=== PATIENT | female | born 1955 | race Caucasian/White ===

== ENCOUNTER → 2020-04-09 11:16 | Outpatient (BNVA) | payer MEDICARE, SELFPAY | PROVIDERS: PCP Internal Medicine; Referring Provider Internal Medicine; Visit Provider Hospitalist | DX: J44.9 Chronic obstructive pulmonary disease, unspecified (principal); R91.8 Other nonspecific abnormal finding of lung field; J31.0 Chronic rhinitis; K76.89 Other specified diseases of liver; Z99.81 Dependence on supplemental oxygen | CPT/HCPCS: 99212 ==

== ENCOUNTER 2020-04-16 12:55 | Outpatient (REF) | payer MEDICARE, SELFPAY ==
--- NOTE | 2020-04-16 13:20 | PFT_ITS ---
Forced vital capacity, FEV1, [id number] and MVV are all markedly decreased. Post bronchodilator therapy, there is no significant improvement. Total lung capacity normal. Residual volume moderately increased. Diffusion capacity is markedly decreased. CONCLUSION: Very severe obstructive airway disorder. No significant response to bronchodilator therapy. There is evidence of air trapping. Clinical correlation recommended. MD JOBY Daniels/MODL / [id number]
== END 2020-04-16 12:56 | disposition home or self-care (01) ==
LOC: HO.RESP 12:55
PROVIDERS: PCP Internal Medicine; Visit Provider Hospitalist
DX: R91.1 Solitary pulmonary nodule (principal)
CPT/HCPCS: 94060; 94727; 94729

== ENCOUNTER 2020-05-02 10:27 | Outpatient (REF) | payer MEDICARE, SELFPAY ==
--- NOTE | 2020-05-02 10:32 | US_ITS ---
EXAMINATION: US ABDOMEN LIMITED CLINICAL INFORMATION: Other specified diseases of liver. COMPARISON: None TECHNIQUE: Real-time imaging of the right upper quadrant abdominal viscera. Technically limited study secondary to bowel gas. FINDINGS: PANCREAS: Head and body appear unremarkable. The tail is obscured by overlying bowel gas. LIVER: The liver is normal in size. There is increased echogenicity consistent with fatty infiltration. No focal hepatic lesion. There is no intrahepatic biliary duct dilatation seen. GALLBLADDER: Cholelithiasis is present without evidence of acute cholecystitis. The gallbladder is physiologically distended. Multiple mobile gallstones are present. No evidence of gallbladder wall thickening or pericholecystic fluid. COMMON BILE DUCT: Normal in caliber measuring 0.3 cm in diameter. RIGHT KIDNEY: Normal. No hydronephrosis. No renal calculi or focal parenchymal lesions. The kidney measures 9.4 cm in maximum dimension. FREE FLUID: None. US/US abdomen limited IMPRESSION: Cholelithiasis without evidence of acute cholecystitis. Fatty infiltration of the liver.
== END 2020-05-02 10:28 | disposition home or self-care (01) ==
LOC: HO.US 10:27
PROVIDERS: Visit Provider Hospitalist
DX: K76.89 Other specified diseases of liver (principal)
CPT/HCPCS: 76705

== ENCOUNTER → 2020-10-10 09:58 | Outpatient (BNVA) | payer MEDICARE, SELFPAY | PROVIDERS: PCP Internal Medicine; Visit Provider Hospitalist | DX: J31.0 Chronic rhinitis (principal); R91.8 Other nonspecific abnormal finding of lung field; J43.2 Centrilobular emphysema | CPT/HCPCS: 99212 ==

== ENCOUNTER → 2021-01-21 14:04 | Outpatient (BNVA) | payer MEDICARE, SELFPAY | PROVIDERS: PCP Internal Medicine; Visit Provider Hospitalist | DX: J31.0 Chronic rhinitis (principal); J43.2 Centrilobular emphysema; R91.8 Other nonspecific abnormal finding of lung field; Z99.81 Dependence on supplemental oxygen | CPT/HCPCS: 96372; 99212; J2930 ==

== ENCOUNTER 2021-02-05 10:40 | Outpatient (REF) | payer MEDICARE, SELFPAY ==
[2021-02-05 11:34] LABS: ABG Refer to POC result; ABG Base Excess 2.9 mmol/L; ABG HCO3 25 mmol/L (22-26); ABG pCO2 TC 28 mmHg (32-45); ABG pH TC 7.55 (7.35-7.45)
[2021-02-05 11:35] LABS: ABG pO2 TC 46 (83-108)
[2021-02-05 12:02] LABS: MANUAL DIFF FLAG NO
[2021-02-05 12:06] LABS: Basophils Percent Auto 0.3 % (0-2); Eosinophils Absolute Auto 0.2 X10*3/uL (0.0-0.4); Eosinophils Percent Auto 2.3 % (0-4); Hematocrit 38.1 % (37-47); Hemoglobin 12.3 g/dl (12.0-16.0); Imm Gran Abs Auto 0.18 X10*3/uL (0.00-0.03); Lymphocytes Absolute Auto 0.9 X10*3/uL (1.2-4.9); Lymphocytes Percent Auto 10.2 % (20-40); Mean Corpuscular HGB Conc 32.3 g/dl (31.0-35.0); Mean Corpuscular Hemoglobin 31.4 pg (27.0-33.0); Mean Corpuscular Volume 97.2 fL (80-98); Mean Platelet Volume 11.3 fL (9.4-12.3); Monocytes Absolute Auto 0.8 X10*3/uL (0.1-1.2); Monocytes Percent Auto 9.1 % (2-11); Neutrophils Percent Auto 76.1 % (45-73); Platelet Count 198 X10*3/uL (160-400); Red Blood Count 3.92 X10*6/uL (4.20-5.50); Red Cell Distribution Width 13.2 % (11.0-16.0); White Blood Count 9.1 X10*3/uL (4.8-10.8)
[2021-02-05 12:55] LABS: Anion Gap 14 (12-20); Blood Urea Nitrogen 18 mg/dL (9-16); Calcium 9.2 mg/dL (8.4-10.2); Carbon Dioxide 27 mmol/L (22-29); Chloride 96 mmol/L (96-108); Estimated Glomerular Filt Rate 47; Glucose Random 107 mg/dL (60-115); Potassium 4.6 mmol/L (3.3-5.1); Sodium 132 mmol/L (135-145)
[2021-02-05 13:14] LABS: Erythrocyte Sedimentation Rate 61 MM/HR (0-20)
[2021-02-06 06:56] LABS: Theophylline < 0.8
== END 2021-02-05 10:41 | disposition home or self-care (01) ==
LOC: HO.LAB 10:40
PROVIDERS: PCP Internal Medicine; Visit Provider Hospitalist
DX: J44.9 Chronic obstructive pulmonary disease, unspecified (principal)
CPT/HCPCS: 36415; 80048; 80198; 82803; 85025; 85652

== ENCOUNTER 2021-02-06 09:41 | Outpatient (REF) | payer MEDICARE, SELFPAY ==
--- NOTE | ~2021-02-06 | CT_ITS ---
EXAMINATION: CT ANGIOGRAM OF THE CHEST WITH AND WITHOUT CONTRAST (CT PULMONARY ANGIOGRAM FOR PE) CLINICAL INFORMATION: Reason for Exam J96.20 - Acute and chronic respiratory failure, unspecifi... COMPARISON: None TECHNIQUE: Prior to contrast administration, noncontrast localization images were obtained. Subsequently, multidetector volumetric imaging was performed from the thoracic inlet to below the diaphragms following the administration of 65 mL Omnipaque 350 intravenous contrast. No contrast reaction reported Sagittal, coronal, and MIP oblique sagittal reformatted images were obtained on the CT workstation, uploaded to PACS, and reviewed. This CT examination was performed using dose optimization techniques as appropriate, variously including the following: *Automated exposure control *Adjustment of mA and/or kV according to patient size (this includes techniques or standardized protocols for targeted exams where dose is matched to indication/reason for exam; i.e. extremities or head) *Use of iterative reconstruction technique Total exam dose-length product 100 mGy-cm FINDINGS: QUALITY OF STUDY/CONTRAST BOLUS: Satisfactory. PULMONARY ARTERIES: No central or segmental pulmonary emboli. THORACIC AORTA: No aneurysm or dissection. LUNG: There is evidence of emphysema. This is greatest in the lower lobes. The lungs are clear. No evidence PLEURA: No pleural effusion or pneumothorax. MEDIASTINUM: Normal heart size. No pericardial effusion. No hilar or mediastinal lymphadenopathy. No evidence of septal bowing or right heart strain. CHEST WALL/AXILLA: No axillary or internal mammary lymphadenopathy. OSSEOUS STRUCTURES: No acute or suspicious osseous abnormality. UPPER ABDOMEN: There is a 1.2 x 1.5 cm left adrenal nodule. Hounsfield units measure 25 following contrast which is indeterminate. The gallbladder is not completely imaged but may be enlarged measuring 4 x 4.6 cm in AP and transverse dimension. There is a curvilinear calcification in the neck of the gallbladder questionable for a gallstone versus gallbladder wall calcification. No reflux of contrast into the hepatic veins to suggest elevated right heart pressures. CT/CT angio chest PE protocol IMPRESSION: No evidence of pulmonary embolism. Emphysema with lower lobe predominance. 1.2 x 1.5 cm indeterminate left adrenal nodule. Prominent gallbladder and curvilinear calcification in the neck of the gallbladder questionable for a gallstone versus gallbladder wall calcification. VTE: negative
[2021-02-06 12:06] LABS: B Type Natriuretic Peptide < 10 pg/mL (<100); Troponin-I High Sensitivity 4.5 ng/L (<3.5-17.0)
[2021-02-06] MEDS: iohexoL 350 MG/ML 100 ML INFUS..BTL IV (15:05)
== END 2021-02-06 09:42 | disposition home or self-care (01) ==
LOC: HO.CT 09:41
PROVIDERS: PCP Internal Medicine; Visit Provider Hospitalist
DX: J43.2 Centrilobular emphysema (principal); J96.20 Acute and chronic respiratory failure, unspecified whether with hypoxia or hypercapnia; R91.8 Other nonspecific abnormal finding of lung field; J31.0 Chronic rhinitis; Z79.899 Other long term (current) drug therapy; Z99.81 Dependence on supplemental oxygen
CPT/HCPCS: 36415; 71275; 83880; 84484; 96372; 99212; J2930; Q9967

== ENCOUNTER → 2021-02-25 11:14 | Outpatient (BNVA) | payer MEDICARE, SELFPAY | PROVIDERS: PCP Internal Medicine; Visit Provider Hospitalist | DX: J96.20 Acute and chronic respiratory failure, unspecified whether with hypoxia or hypercapnia (principal); J31.0 Chronic rhinitis; J43.2 Centrilobular emphysema; R91.8 Other nonspecific abnormal finding of lung field | CPT/HCPCS: 99212 ==

== ENCOUNTER → 2021-03-18 14:02 | Outpatient (BNVA) | payer MEDICARE, SELFPAY | PROVIDERS: PCP Internal Medicine; Visit Provider Hospitalist | DX: J96.20 Acute and chronic respiratory failure, unspecified whether with hypoxia or hypercapnia (principal); J31.0 Chronic rhinitis; J43.2 Centrilobular emphysema; R91.8 Other nonspecific abnormal finding of lung field | CPT/HCPCS: 99212 ==

== ENCOUNTER 2021-03-21 15:49 | Outpatient (REF) | payer MEDICARE, SELFPAY ==
--- NOTE | 2021-03-21 17:44 | PFT_ITS ---
INDICATION: COPD. SPIROMETRY: The FEV1 to FVC 45% with an FEV1 of 0.5 L, which is 21% predicted and an FVC of 1.1 L, which is 35% predicted. Post bronchodilators, there was a significant improvement of the FEV1 by 27%. The maximum voluntary ventilation only 22% predicted. LUNG VOLUMES: Total lung capacity 78% predicted with a residual volume of 132% predicted. DIFFUSION CAPACITY: DLCO 16% predicted. COMPARISONS: PFTs from 04/16/2020. INTERPRETATION: There is an obstructive ventilatory defect consistent with very severe COPD. There was a significant response to bronchodilators noted. Severe decrease in maximum voluntary ventilation secondary to deconditioning and also worsening dynamic inspiratory capacity. Lung volumes do demonstrate a mild restrictive ventilatory defect suggesting the possibility of underlying parenchymal lung disease. In addition to that, does have significant air trapping due to the COPD. There is a very severe diffusion impairment secondary to the significant degree of emphysema in addition to the possibility of underlying parenchymal lung disease and/or pulmonary vascular disease. When compared to 2019, there appears to be a significant decrease in the FVC, trend increase in the FEV1, significant decrease in the total lung capacity, and trend decrease in the diffusion capacity. Clinical correlation is warranted. MD RINKU Lim/MARY / [id number]
== END 2021-03-21 15:50 | disposition home or self-care (01) ==
LOC: HO.RESP 15:49
PROVIDERS: PCP Internal Medicine; Visit Provider Hospitalist
DX: J96.10 Chronic respiratory failure, unspecified whether with hypoxia or hypercapnia (principal); J43.2 Centrilobular emphysema
CPT/HCPCS: 94060; 94727; 94729

== ENCOUNTER → 2022-03-27 12:55 | Outpatient (BNVA) | payer MEDICARE, SELFPAY | PROVIDERS: PCP Internal Medicine; Visit Provider Hospitalist | DX: J43.2 Centrilobular emphysema (principal); J96.11 Chronic respiratory failure with hypoxia; J96.12 Chronic respiratory failure with hypercapnia; J31.0 Chronic rhinitis; R91.8 Other nonspecific abnormal finding of lung field | CPT/HCPCS: 99212 ==

== ENCOUNTER → 2022-05-16 09:58 | Outpatient (BNVA) | payer MEDICARE, SELFPAY | PROVIDERS: PCP Internal Medicine; Visit Provider Hospitalist | DX: J10.1 Influenza due to other identified influenza virus with other respiratory manifestations (principal); J44.1 Chronic obstructive pulmonary disease with (acute) exacerbation; J96.11 Chronic respiratory failure with hypoxia; J96.12 Chronic respiratory failure with hypercapnia; J31.0 Chronic rhinitis; R91.8 Other nonspecific abnormal finding of lung field | CPT/HCPCS: Q3014 ==

== ENCOUNTER → 2022-06-09 15:43 | Outpatient (BNVA) | payer MEDICARE, SELFPAY | PROVIDERS: PCP Internal Medicine; Visit Provider Hospitalist | DX: J96.11 Chronic respiratory failure with hypoxia (principal); J96.12 Chronic respiratory failure with hypercapnia; R53.83 Other fatigue; R91.8 Other nonspecific abnormal finding of lung field; J44.9 Chronic obstructive pulmonary disease, unspecified; J31.0 Chronic rhinitis; Z99.81 Dependence on supplemental oxygen; Z79.899 Other long term (current) drug therapy | CPT/HCPCS: Q3014 ==

== ENCOUNTER 2022-07-03 12:16 | Outpatient (REF) | payer MEDICARE, SELFPAY ==
[2022-07-03 12:28] LABS: MANUAL DIFF FLAG NO
[2022-07-03 12:35] VITALS: O2SAT 98
[2022-07-03 12:49] LABS: ABG Refer to POC result
[2022-07-03 13:00] LABS: ABG pCO2 48 mmHg (32-45); ABG pH 7.39 (7.35-7.45)
[2022-07-03 13:01] LABS: ABG Base Excess 4.4 mmol/L; ABG HCO3 30 mmol/L (22-26); ABG pO2 88 mmHg (83-108)
[2022-07-03 13:24] LABS: Basophils Absolute Auto 0.1 X10*3/uL (0.0-0.2); Basophils Percent Auto 0.6 % (0-2); Eosinophils Absolute Auto 0.3 X10*3/uL (0.0-0.4); Eosinophils Percent Auto 3.2 % (0-4); Hematocrit 39.2 % (37.0-47.0); Imm Gran Abs Auto 0.16 X10*3/uL (0.00-0.03); Imm Gran Pct Auto 1.8 % (0.0-0.4); Lymphocytes Absolute Auto 2.1 X10*3/uL (1.2-4.9); Lymphocytes Percent Auto 24.2 % (20-40); Mean Corpuscular HGB Conc 30.6 g/dl (31.0-35.0); Mean Corpuscular Hemoglobin 31.2 pg (27.0-33.0); Mean Corpuscular Volume 101.8 fL (80.0-98.0); Mean Platelet Volume 10.9 fL (9.4-12.3); Monocytes Absolute Auto 0.7 X10*3/uL (0.1-1.2); Monocytes Percent Auto 8.1 % (2-11); Neutrophils Absolute Auto 5.4 x10*3/uL (2.0-8.3); Neutrophils Percent Auto 62.1 % (45-73); Platelet Count 295 X10*3/uL (160-400); Red Blood Count 3.85 X10*6/uL (4.20-5.50); White Blood Count 8.8 X10*3/uL (4.8-10.8)
[2022-07-03 13:59] LABS: Anion Gap 11 (12-20); Blood Urea Nitrogen 25 mg/dL (9-16); Carbon Dioxide 31 mmol/L (22-29); Chloride 101 mmol/L (96-108); Estimated Glomerular Filt Rate 46; Glucose Random 89 mg/dL (60-115); Potassium 4.2 mmol/L (3.3-5.1); Sodium 139 mmol/L (135-145)
[2022-07-03 14:16] LABS: Erythrocyte Sedimentation Rate 23 MM/HR (0-20)
== END 2022-07-03 12:17 | disposition home or self-care (01) ==
LOC: HO.LAB 12:16
PROVIDERS: PCP Internal Medicine; Visit Provider Hospitalist
DX: J43.2 Centrilobular emphysema (principal); J96.11 Chronic respiratory failure with hypoxia; J96.12 Chronic respiratory failure with hypercapnia; J31.0 Chronic rhinitis; R91.8 Other nonspecific abnormal finding of lung field
CPT/HCPCS: 36415; 36600; 80048; 82803; 85025; 85652; 99212

== ENCOUNTER 2022-12-18 14:33 | Outpatient (AMB) | payer MEDICARE, SELFPAY ==
[2022-12-18 14:41] VITALS: BP 124/66; PULSE 98; O2SAT 97; BMI 25.9
--- NOTE | 2022-12-18 14:41 | A.OFFVIS_ITS ---
Intake Vital Signs 12/18/22 14:41 Height 5 ft 3 in Weight 146 lb BMI 25.9 BP 124/66 Blood Pressure Location Lt brachial Position Sitting Pulse 98 Pulse Source Pulse Oximeter Pulse Oximetry (%) 97 Oxygen Delivery Method Nasal Cannula Comment 2L Intake Visit Reasons: COPD Allergies sulfamethoxazole [Bactrim] Allergy (Intermediate, Verified 12/18/22 14:45) Rash trimethoprim [Bactrim] Allergy (Intermediate, Verified 12/18/22 14:45) rash Codeine Allergy (Severe, Uncoded 12/18/22 14:45) Rash Erythromycin Allergy (Intermediate, Uncoded 12/18/22 14:45) Rash HPI HPI Comments History of Present Illness Details The patient is a 67-year-old woman with known pulmonary nodules in COPD. She is currently oxygen dependent. She does have a portable oxygen concentrator that she uses with activity. In the meantime she has been using trelegy inhaler with good effect. She did try Daliresp in the past but not tolerated due to GI side effects. She has not had to use any prednisone or had any antibiotics. The patient had a CT scan of the chest done back in September 2018 done at [facility]. Per report he was noted to the nodules were stable. She should have another CT scan in a year's time. I would have to confirm the CT scan findings. She continues to active. She is continue pulmonary rehab at home. 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 Otherwise she is without any other complaints period. 10/10/2020 the patient is here for pulmonary follow-up visit. She continues to complain of significant dyspnea with minimal exertion. She does use the oxygen but still very short of breath. She is very depressed because she is not able to do the things he used to enjoy doing outside. She also sad because she is grieving the of her neighbor. When she gets short of breath she does get anxious because she cannot breathe. I do believe nebulized therapy may be more effective in providing better bronchodilation. However, the patient is going to a camp and is hard for her to do nebulized therapies while she is there. Therefore will maximize her respiratory therapy by adding theophylline to her regimen. But she starts to medication we can go ahead and recheck her theophylline levels to make sure there are adequate. We did review her pulmonary function studies demonstrating a very severe obstruction and also very severe diffusion impairment. The patient may benefit from the noninvasive ventilator. Will be reasonable to assess her ABG and covering the oxide. Plan to do that when she returns from her camp. In addition to that the patient did have a CT scan of the chest done last year which demonstrated a new pulmonary nodule 4 mm in size. She is scheduled to undergo a repeat CT scan sometime early April. I will follow up with her after that. 01/21/2021 the patient is here for a sick visit. Apparently 3 4 days ago she started developing worsening shortness of breath chest tightness and cough. Moderate severity. She said about going to the ER. denies any fevers or chills. Denies any sick contacts. Recently she did go to a however. In the office she was found to have significant chest tightness. She was given DuoNebs x2 with some partial improvement of her symptoms. She was then given Solu-Medrol 125 mg IM. Of further questioning she stop the theophylline because she cannot tolerated. Will trial azithromycin 3 times a week. She was also provided with a spirometer she finds helpful. She is wondering about lung volume reduction interventions. I did recommend a referral to [place]. The meantime she did have a CT scan of the chest back in April and she is scheduled for the 1 in April. I will request a copy of the CT scans she had a Charla in order to address the distribution of her emphysema. In the meantime we talked about 90 based therapies with her advanced COPD. Will request an ABG prior to her next visit. 02/06/2021 the patient is here for sick visit. Her respiratory status is getting worse. Today her had to bring her in a wheelchair. She feels very short of breath. She denies any congestion of the chest or chest discomfort. Patient did complete a course of prednisone and also has been on the azithromycin 3 times a week. She did have a blood gas done yesterday demonstrating significant hypoxemia suggesting the possibility that was a venous gas instead of an arterial puncture or just stating that there was significant hypoxemia. Indeed acute on chronic hypoxic respiratory failure. In view of that will have to assess for acute worsening conditions such as the possibility of a pulmonary emboli. The patient is also concerned if she has underlying heart failure. Based on her blood work her BUN was elevated suggesting that she was falling more dehydrated than volume overloaded. Based on her symptoms in the very abnormal ABG with significant hypoxemia she was referred to have a CTA done. She did have a CTA demonstrating extensive emphysema primarily in the lower lung zones and no evidence of any pulmonary emboli or airspace disease. In the office she was given additional Solu-Medrol 125 mg and she was given 2 treatments of DuoNeb. Based on her worsening respiratory failure she does carry a poor prognosis and high risk readmissions to the hospital. Patient will benefit from noninvasive ventilator to provide better gas exchange and to decrease work of breathing and to decrease her chances of readmissions to the hospital. I will request her [employer] to start her on a noninvasive ventilator, astral at this time. 02/25/2021 the patient is here for a pulmonary follow-up visit. She is feeling a little bit better. She is down to 10 mg of prednisone. She continues on the oxygen supplementation. Based on her increased work of breathing and her advanced COPD with chronic respiratory failure she was placed on the noninvasive ventilator, astral. She is tolerating it well using it up to 7 hours a night. She is wondering if she should continues therapy. I did encourage her to continue it for now. In the meantime she continues on the Trelegy inhaler which is very expensive. She has been using the nebulizer more often so therefore is not on reasonable to switch her to nebulized therapy at this time. In addition to that we talked about her advance pulmonary disease. Her FEV1 is down to 20% predicted. It appears that this exacerbation has resulted in her not improving to her previous baseline. She would like to looking to further alternatives. We did review her recent CT scan of the chest demonstrating pretty diffuse emphysema making the one-way valve is lung volume interventions difficult. The other all other option is lung transplant. The patient is open to lung transplantation at this time. He was asking about medications such as benzodiazepines to help with her nurse. I did encourage her not to use benzos based on the fact that they suppress respiratory drive. She then brought up CBD tincture which I believe will be just fine. 03/19/2021 the patient is here for a pulmonary follow-up visit. The patient is feeling better although still very winded with minimal activity. She is using her portable oxygen concentrator at 2 L pulse. In addition to that she did switch to the nebulized therapy with budesonide and DuoNeb. However, the DuoNeb makes her jittery and restless and she cannot tolerated. I will try to send Xopenex to the pharmacy. She can use that 4 times a day. It does not effective she is going to have to go back to on inhaler therapy. She continues using noninvasive ventilator at nighttime. Will continue for least 3 months. will reassess done. The patient is looking to have a referral to a pulmonary lung transplant program. Did did request a 6 minutes walk test. We did did a 6 minute walk test. The patient had a hard time with dyspnea symptoms specially with her conserving device. We switched her to the continuous flow in she did do better. At this point the patient benefits from continues oxygen with portability. She is still very nervous at times. She is doing better with the CBD tincture. She is avoiding benzodiazepines. She only has a few more days of the prednisone and she is going to stop.\ 03/27/2022 the patient is here for a pulmonary follow-up visit. It has been awhile since our last visit. She was evaluated in [place] but then she opted not to pursue lung transplantation. the patient felt that she was going to Spent much time in the hospitals in this will limit her quality of life. Based on the decision we did speak again about lung volume reduction interventions. This still may be available for her specially at the clinic. She is going to consider it for now. She continues to pulmonary rehabilitation. She also continues her oxygen. She still gets very winded and short of breath with minimal activity. This causes her to become more anxious. She was star yeimi on a small dose of zoloft and also using CBD tincture. she is having hard time with the Trelegy because of the expense. She is wondering if an alternative. She has tried multiple nebulized therapies and she has not tolerated them. She was told about Yupelri. This would be a reasonable option but she would have to do it with a combination inhaler such as AirDuo. AirDuo with very cause effective specially if she uses the good Rx card. Right now she has enough Trelegy so she will use which she has and then will looking to switching her regimen in the near future. The patient has underlying pulmonary nodules. Her last CT scan was done and 03/20/2021. Therefore, she is due for repeat CT scan at this time. Will plan to have air CT scan or PFTs done prior to her next visit in 2-3 months. At that time will talk about [address] valves lung volume reduction interventions and also assess her response to the new respiratory regimen. 05/16/2022 the patient has a telephone visit today. She was recently admitted to [facility] with influenza and exacerbating her COPD. She did have a CT scan demonstrating no evidence of any airspace disease which is reassuring. The patient was not given Tamiflu because she had spent more than 7 days from her symptom onset. Although I probably would have prescribed it anyway based on her comorbidities and her positive test the patient has been using her oxygen with good effect. She has been now tapering from a prednisone. The patient has a cough although the cough is getting better. It is nonproductive in nature. Moderate severity. 06/09/2022 the patient has a telephone visit today. The patient does not feel well. she completed the antibiotics and also the prednisone taper. When she finishes started feeling significant shortness of breath and fatigue in addition to weakness. She continues on the Trelegy. She is going to run out when she runs out she is going to 1 nebulized therapy. I do believe that is going to be helpful as well. The patient may have a component of adrenal insufficiency secondary to her prolonged prednisone use. It is likely that she needs to be on a small dose. Therefore she is agreeable to starting 10 mg daily and then tapering down to 7.5 until we re-evaluate. Hold off on additional antibiotics at this time. She does continue to use her noninvasive ventilator at nighttime. She is using between 4-6 hours a day. She is still having hard time tolerating it. She is concerned about her anxiety. She gets more anxiety and having some difficulty breathing. She was requesting some lorazepam. I was reluctant to give it to her because of can suppress respiratory drive. Although the patient cannot sleep with her noninvasive ventilator. Therefore, I will give her enough for her to start using it prior to putting on the noninvasive ventilator in order to get proper sleep and rest while using the ventilator she will not have difficulties with hypercarbia which would be the big is concerned with the use of anxiolytics therapy which could suppress her respiratory drive. As a did tell the patient that I will provide at this prescription and after that she will need to get it from her primary care if she needs additional therapy. 07/03/2022 the patient is here for a pulmonary follow-up visit. She continues to slowly improve. She is not her baseline although she states that she may have a new baseline. She continues on the prednisone 7.5 mg daily and she seems to be tolerating that okay. Will continue with current dose at this time. She continues with a noninvasive ventilator at nighttime. It seems that she is tolerating it better. Today she did have an ABG demonstrating normal acid-base status. Her CO2 to issues slightly elevated from baseline therefore, seems to be responding well to her noninvasive ventilator. Her PaO2 was also reassuring even on the oxygen she is taking right now through her pulse device. Sometimes she gets very anxious and starts hyperventilating. She understands that this will cause worsening air trapping and therefore harder time breathing. We did talk about certain techniques that she can use at that time. Including using a straw technique and purse lip breathing. she can also use the noninvasive ventilator during the daytime. She is using CBD and seems to be helping her. At time she does use lorazepam. She needs to be care for the respiratory drive. We again talked about lung volume reduction interventions. Based on her previous PFTs her FEV1 is significantly low and her diffusing capacity as well. She will need to get repeat PFTs to see if she is a candidate or not. In addition, the patient is not responding well to the Yupelri. I did provide since with some samples of DuoNeb she can use that 3 times a day in addition to continuing the prednisone. 12/18/2022 the patient is here for a pulmonary follow-up visit. The patient is complaining of worsening dyspnea. The patient also already on oxygen. She has been having worsening chest tightness shortness of breath. Moderate to severe. She went up on her prednisone to 40 mg ended a taper but did not see any significant improvement. She has not been using the nebulizer often because it makes her shaky with tremors and is uncomfortable. She does continue to use the Trelegy inhaler and is also using the noninvasive ventilator at nighttime. She has significant chest tightness and a prolonged expiratory phase. The patient needs to start using her nebulizer more often. I did have Xopenex available and did provide her in order for her to use it twice a day at least to help with her significant bronchoconstriction. The patient will also undergo blood work. Recently she was given additional diuresis. She was having lower extremity edema. My suspicion is that she has cor pulmonale due to her advanced pulmonary disease. The patient will have blood work including a venous gas. And venous gas her CO2 was slightly elevated more than before. Therefore, Saul will be going by her house and will try to adjust her minute ventilation. [facility] Medical History Acute and chronic respiratory failure Chronic respiratory failure Chronic respiratory failure Chronic rhinitis COPD (chronic obstructive pulmonary disease) Pulmonary nodules Social History Patient Tobacco Use Status: Former Tobacco user Tobacco use type: Cigarette Years Smoked: 40 years Review of Systems Const Reports fatigue and Denies night sweats ENT Denies change in voice, Denies lip swelling, Denies mouth pain, Reports nasal congestion, Reports nasal discharge and Denies tongue swelling Card Denies chest pain, Reports dyspnea and Reports dyspnea on exertion Resp Denies chest congestion, Reports cough, Denies pain on inspiration, Denies pain with cough, Reports dyspnea, Reports dyspnea on exertion and Reports wheezing GI Denies abdominal pain Musc Denies no additional complaints Neuro Denies Neuro-related abnormal movements Psych Denies no additional complaints and Reports anxiety Endo Reports fatigue Juan/Lymph Denies easy bleeding and Denies lymphadenopathy Aller/Immun Denies lip swelling, Denies tongue swelling and Reports wheezing Physical Exam Vital Signs: Last Vital Signs Pulse 98 12/18/22 14:41 BP 124/66 12/18/22 14:41 Pulse Ox 97 12/18/22 14:41 Oxygen Delivery Method Nasal Cannula 12/18/22 14:41 BMI result Body Mass Index 25.9 Const General: comfortable and alert Orientation/consciousness: patient oriented x3 HEENT Head: Yes normocephalic Neck Neck: Yes supple Chest Chest palpation & inspection: normal inspection of the chest Resp Effort & Inspection: normal respiratory effort Auscultation: no wheezes and diminished lung sounds Cardio Rate: regular rate Rhythm: regular rhythm Heart sounds: S1 normal heart sound present and S2 normal heart sound present GI Auscultation: normal bowel sounds Skin General skin exam: no rashes or lesions noted Neuro General: patient oriented x3 Extrem General: No cyanosis Assessment & Plan Assessment & Plan (1) COPD (chronic obstructive pulmonary disease): Code(s): J44.9 - Chronic obstructive pulmonary disease, unspecified Qualifiers: COPD type: COPD with acute exacerbation Qualified Code(s): J44.1 - Chronic obstructive pulmonary disease with (acute) exacerbation (2) Chronic respiratory failure: Code(s): J96.10 - Chronic respiratory failure, unspecified whether with hypoxia or hypercapnia Qualifiers: Respiratory failure complication: hypoxia and hypercapnia Qualified Code(s): J96.11 - Chronic respiratory failure with hypoxia; J96.12 - Chronic respiratory failure with hypercapnia (3) Chronic rhinitis: Comment: 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 Code(s): J31.0 - Chronic rhinitis (4) Pulmonary nodules: Code(s): R91.8 - Other nonspecific abnormal finding of lung field Plan Trial xopex BID continue Trelegy blood gas and bloodwork Prednisone 7.5mg daily continue PPI use saline gel for her nose Continue oxygen supplementation [employer] to adjust noninvasive ventilator to help with hypercapnea The patient is not interested in LVR procedures nor transplant at this time F/U 3 months Orders: Orders Alpha 1 Anti-trypsin 12/18/22 J44.9 - Chronic obstructive pulmonary disease, unspecified, J96.10 - Chronic respiratory failure, unspecified whether with hypoxia or hypercapnia, R91.8 - Other nonspecific abnormal finding of lung field Basic Metabolic Panel 12/18/22 J44.9 - Chronic obstructive pulmonary disease, unspecified, J96.10 - Chronic respiratory failure, unspecified whether with hypoxia or hypercapnia, R91.8 - Other nonspecific abnormal finding of lung field Venous Blood Gas 12/18/22 J44.9 - Chronic obstructive pulmonary disease, unspecified, J96.10 - Chronic respiratory failure, unspecified whether with hypoxia or hypercapnia, R91.8 - Other nonspecific abnormal finding of lung field Complete Blood Count Auto Diff 12/18/22 J44.9 - Chronic obstructive pulmonary disease, unspecified, J96.10 - Chronic respiratory failure, unspecified whether with hypoxia or hypercapnia, R91.8 - Other nonspecific abnormal finding of lung field Erythrocyte Sedimentation Rate 12/18/22 J44.9 - Chronic obstructive pulmonary disease, unspecified, J96.10 - Chronic respiratory failure, unspecified whether with hypoxia or hypercapnia, R91.8 - Other nonspecific abnormal finding of lung field Coding Level of Care Code Est Pt Level 4 (84093) Diagnoses COPD (chronic obstructive pulmonary disease) J44.1 COPD type: COPD with acute exacerbation Chronic respiratory failure J96.11; J96.12 Respiratory failure complication: hypoxia and hypercapnia Chronic rhinitis J31.0 Pulmonary nodules R91.8 Time Spent (min) 19
== END 2022-12-18 15:20 | disposition home or self-care (01) ==
LOC: HO.HPS 14:33
PROVIDERS: PCP Internal Medicine; Visit Provider Hospitalist
DX: J44.1 Chronic obstructive pulmonary disease with (acute) exacerbation (principal); J96.11 Chronic respiratory failure with hypoxia; J96.12 Chronic respiratory failure with hypercapnia; J31.0 Chronic rhinitis; R91.8 Other nonspecific abnormal finding of lung field
CPT/HCPCS: 99214

== ENCOUNTER 2022-12-18 14:33 | Outpatient (REF) | payer MEDICARE, SELFPAY ==
[2022-12-18 16:07] LABS: MANUAL DIFF FLAG NO
[2022-12-18 16:35] LABS: VBG Base Excess 8.9 mmol/L; VBG HCO3 37 mmol/L (22-26); VBG pCO2 66 mmHg; VBG pH 7.35 (7.32-7.43); VBG pO2 46 mmHg
[2022-12-18 16:36] LABS: Venous Blood Gas Refer to POC result
[2022-12-18 17:04] LABS: Basophils Percent Auto 0.3 % (0-2); Eosinophils Absolute Auto 0.1 X10*3/uL (0.0-0.4); Eosinophils Percent Auto 0.4 % (0-4); Hematocrit 37.8 % (37.0-47.0); Hemoglobin 11.8 g/dl (12.0-16.0); Imm Gran Abs Auto 0.14 X10*3/uL (0.00-0.03); Imm Gran Pct Auto 1.2 % (0.0-0.4); Lymphocytes Percent Auto 8.7 % (20-40); Mean Corpuscular HGB Conc 31.2 g/dl (31.0-35.0); Mean Corpuscular Hemoglobin 31.1 pg (27.0-33.0); Mean Corpuscular Volume 99.7 fL (80.0-98.0); Mean Platelet Volume 11.4 fL (9.4-12.3); Monocytes Absolute Auto 0.5 X10*3/uL (0.1-1.2); Monocytes Percent Auto 3.9 % (2-11); Neutrophils Absolute Auto 9.8 x10*3/uL (2.0-8.3); Neutrophils Percent Auto 85.5 % (45-73); Platelet Count 265 X10*3/uL (160-400); Red Blood Count 3.79 X10*6/uL (4.20-5.50); Red Cell Distribution Width 13.3 % (11.0-16.0); White Blood Count 11.5 X10*3/uL (4.8-10.8)
[2022-12-18 17:37] LABS: Anion Gap 12 (12-20); Blood Urea Nitrogen 30 mg/dL (9-16); Calcium 9.8 mg/dL (8.4-10.2); Carbon Dioxide 31 mmol/L (22-29); Chloride 99 mmol/L (96-108); Estimated Glomerular Filt Rate > 60; Glucose Random 101 mg/dL (60-115); Potassium 4.6 mmol/L (3.3-5.1); Sodium 137 mmol/L (135-145)
[2022-12-18 17:56] LABS: Erythrocyte Sedimentation Rate 13 MM/HR (0-20)
[2022-12-24 12:39] LABS: Alpha 1 Anti-trypsin 136 mg/dL (83-199)
== END 2022-12-18 14:34 | disposition home or self-care (01) ==
LOC: HO.LAB 14:33
PROVIDERS: PCP Internal Medicine; Visit Provider Hospitalist
DX: J44.1 Chronic obstructive pulmonary disease with (acute) exacerbation (principal); J96.12 Chronic respiratory failure with hypercapnia; J31.0 Chronic rhinitis; R91.8 Other nonspecific abnormal finding of lung field
CPT/HCPCS: 36415; 80048; 82103; 82803; 85025; 85652; 99212

== ENCOUNTER 2023-02-16 14:34 | Outpatient (REF) | payer MEDICARE, SELFPAY ==
--- NOTE | ~2023-02-16 | XR_ITS ---
EXAMINATION: XR CHEST CLINICAL INFORMATION: Acute and chronic respiratory infections COMPARISON: CT angiogram of the chest of 02/06/2021 TECHNIQUE: 2 views of the chest were obtained. FINDINGS: Lungs remain hyperinflated with emphysematous changes as previously noted. There is no gross pneumothorax. Heart size is normal. Degenerative changes in the thoracic spine. Ill-defined subtle sclerotic foci along the endplates of several lower thoracic vertebral bodies. Mild focal hazy opacity in the lower left lung, possibly representing pneumonia. No significant pleural effusion. XR/XR chest 2V IMPRESSION: Mild focal hazy opacity in the lower left lung, possibly representing pneumonia. Recommend follow-up imaging in 4-6 weeks to confirm resolution and exclude underlying pathology. CT scan recommended for further evaluation if findings persist or if clinically indicated.
[2023-02-16 15:01] LABS: ABG Base Excess 4.2 mmol/L; ABG HCO3 29 mmol/L (22-26); ABG pCO2 47 mmHg (32-45); ABG pO2 82 mmHg (83-108)
[2023-02-16 15:01] LABS: ABG Refer to POC result
== END 2023-02-16 14:35 | disposition home or self-care (01) ==
LOC: HO.XRAY 14:34
PROVIDERS: PCP Internal Medicine; Visit Provider Hospitalist
DX: J96.20 Acute and chronic respiratory failure, unspecified whether with hypoxia or hypercapnia (principal)
CPT/HCPCS: 71046; 82803

== ENCOUNTER 2023-03-19 14:37 | Outpatient (AMB) | payer MEDICARE, SELFPAY ==
--- NOTE | 2023-03-19 14:47 | A.OFFVIS_ITS ---
Intake Vital Signs 03/19/23 14:51 Height 5 ft 3 in Weight 145 lb BMI 25.7 Pulse 75 Pulse Source Pulse Oximeter Pulse Oximetry (%) 98 Oxygen Delivery Method Room Air Comment 3 Liters Oxygen([facility]) Intake Visit Reasons: COPD Shoe Shiner Required: No Allergies sulfamethoxazole [Bactrim] Allergy (Intermediate, Verified 03/19/23 14:47) Rash trimethoprim [Bactrim] Allergy (Intermediate, Verified 03/19/23 14:47) rash Codeine Allergy (Severe, Uncoded 03/19/23 14:47) Rash Erythromycin Allergy (Intermediate, Uncoded 03/19/23 14:47) Rash HPI HPI Comments History of Present Illness Details The patient is a 67-year-old woman with known pulmonary nodules in COPD. She is currently oxygen dependent. She does have a portable oxygen concentrator that she uses with activity. In the meantime she has been using trelegy inhaler with good effect. She did try Daliresp in the past but not tolerated due to GI side effects. She has not had to use any prednisone or had any antibiotics. The patient had a CT scan of the chest done back in September 2018 done at [facility]. Per report he was noted to the nodules were stable. She should have another CT scan in a year's time. I would have to confirm the CT scan findings. She continues to active. She is continue pulmonary rehab at home. 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 Otherwise she is without any other complaints period. 10/10/2020 the patient is here for pulmonary follow-up visit. She continues to complain of significant dyspnea with minimal exertion. She does use the oxygen but still very short of breath. She is very depressed because she is not able to do the things he used to enjoy doing outside. She also sad because she is grieving the of her neighbor. When she gets short of breath she does get anxious because she cannot breathe. I do believe nebulized therapy may be more effective in providing better bronchodilation. However, the patient is going to a camp and is hard for her to do nebulized therapies while she is there. Therefore will maximize her respiratory therapy by adding theophylline to her regimen. But she starts to medication we can go ahead and recheck her theophylline levels to make sure there are adequate. We did review her pulmonary function studies demonstrating a very severe obstruction and also very severe diffusion impairment. The patient may benefit from the noninvasive ventilator. Will be reasonable to assess her ABG and covering the oxide. Plan to do that when she returns from her camp. In addition to that the patient did have a CT scan of the chest done last year which demonstrated a new pulmonary nodule 4 mm in size. She is scheduled to undergo a repeat CT scan sometime early April. I will follow up with her after that. 01/21/2021 the patient is here for a sick visit. Apparently 3 4 days ago she started developing worsening shortness of breath chest tightness and cough. Moderate severity. She said about going to the ER. denies any fevers or chills. Denies any sick contacts. Recently she did go to a however. In the office she was found to have significant chest tightness. She was given DuoNebs x2 with some partial improvement of her symptoms. She was then given Solu-Medrol 125 mg IM. Of further questioning she stop the theophylline because she cannot tolerated. Will trial azithromycin 3 times a week. She was also provided with a spirometer she finds helpful. She is wondering about lung volume reduction interventions. I did recommend a referral to [facility]. The meantime she did have a CT scan of the chest back in April and she is scheduled for the 1 in April. I will request a copy of the CT scans she had a Charla in order to address the distribution of her emphysema. In the meantime we talked about 90 based therapies with her advanced COPD. Will request an ABG prior to her next visit. 02/06/2021 the patient is here for sick visit. Her respiratory status is getting worse. Today her had to bring her in a wheelchair. She feels very short of breath. She denies any congestion of the chest or chest discomfort. Patient did complete a course of prednisone and also has been on the azithromycin 3 times a week. She did have a blood gas done yesterday demonstrating significant hypoxemia suggesting the possibility that was a venous gas instead of an arterial puncture or just stating that there was significant hypoxemia. Indeed acute on chronic hypoxic respiratory failure. In view of that will have to assess for acute worsening conditions such as the possibility of a pulmonary emboli. The patient is also concerned if she has underlying heart failure. Based on her blood work her BUN was elevated suggesting that she was falling more dehydrated than volume overloaded. Based on her symptoms in the very abnormal ABG with significant hypoxemia she was referred to have a CTA done. She did have a CTA demonstrating extensive emphysema primarily in the lower lung zones and no evidence of any pulmonary emboli or airspace disease. In the office she was given additional Solu-Medrol 125 mg and she was given 2 treatments of DuoNeb. Based on her worsening respiratory failure she does carry a poor prognosis and high risk readmissions to the hospital. Patient will benefit from noninvasive ventilator to provide better gas exchange and to decrease work of breathing and to decrease her chances of readmissions to the hospital. I will request her [employer] company to start her on a noninvasive ventilator, astral at this time. 02/25/2021 the patient is here for a pulmonary follow-up visit. She is feeling a little bit better. She is down to 10 mg of prednisone. She continues on the oxygen supplementation. Based on her increased work of breathing and her advanced COPD with chronic respiratory failure she was placed on the noninvasive ventilator, astral. She is tolerating it well using it up to 7 hours a night. She is wondering if she should continues therapy. I did enc ourage her to continue it for now. In the meantime she continues on the Trelegy inhaler which is very expensive. She has been using the nebulizer more often so therefore is not on reasonable to switch her to nebulized therapy at this time. In addition to that we talked about her advance pulmonary disease. Her FEV1 is down to 20% predicted. It appears that this exacerbation has resulted in her not improving to her previous baseline. She would like to looking to further alternatives. We did review her recent CT scan of the chest demonstrating pretty diffuse emphysema making the one-way valve is lung volume interventions difficult. The other all other option is lung transplant. The patient is open to lung transplantation at this time. He was asking about medications such as benzodiazepines to help with her nurse. I did encourage her not to use benzos based on the fact that they suppress respiratory drive. She then brought up CBD tincture which I believe will be just fine. 03/19/2021 the patient is here for a pulmonary follow-up visit. The patient is feeling better although still very winded with minimal activity. She is using her portable oxygen concentrator at 2 L pulse. In addition to that she did switch to the nebulized therapy with budesonide and DuoNeb. However, the DuoNeb makes her jittery and restless and she cannot tolerated. I will try to send Xopenex to the pharmacy. She can use that 4 times a day. It does not effective she is going to have to go back to on inhaler therapy. She continues using noninvasive ventilator at nighttime. Will continue for least 3 months. will reassess done. The patient is looking to have a referral to a pulmonary lung transplant program. Did did request a 6 minutes walk test. We did did a 6 minute walk test. The patient had a hard time with dyspnea symptoms specially with her conserving device. We switched her to the continuous flow in she did do better. At this point the patient benefits from continues oxygen with portability. She is still very nervous at times. She is doing better with the CBD tincture. She is avoiding benzodiazepines. She only has a few more days of the prednisone and she is going to stop.\ 03/27/2022 the patient is here for a pulmonary follow-up visit. It has been awhile since our last visit. She was evaluated in [facility] but then she opted not to pursue lung transplantation. the patient felt that she was going to Spent much time in the hospitals in this will limit her quality of life. Based on the decision we did speak again about lung volume reduction interventions. This still may be available for her specially at the clinic. She is going to consider it for now. She continues to pulmonary rehabilitation. She also continues her oxygen. She still gets very winded and short of breath with minimal activity. This causes her to become more anxious. She was started on a small dose of zoloft and also using CBD tincture. she is having hard time with the Trelegy because of the expense. She is wondering if an alternative. She has tried multiple nebulized therapies and she has not tolerated them. She was told about Yupelri. This would be a reasonable option but she would have to do it with a combination inhaler such as AirDuo. AirDuo with very cause effective specially if she uses the good Rx card. Right now she has enough Trelegy so she will use which she has and then will looking to switching her regimen in the near future. The patient has underlying pulmonary nodules. Her last CT scan was done and 03/20/2021. Therefore, she is due for repeat CT scan at this time. Will plan to have air CT scan or PFTs done prior to her next visit in 2-3 months. At that time will talk about [address] valves lung volume reduction interventions and also assess her response to the new respiratory regimen. 05/16/2022 the patient has a telephone visit today. She was recently admitted to [facility] with influenza and exacerbating her COPD. She did have a CT scan demonstrating no evidence of any airspace disease which is reassuring. The patient was not given Tamiflu because she had spent more than 7 days from her symptom onset. Although I probably would have prescribed it anyway based on her comorbidities and her positive test the patient has been using her oxygen with good effect. She has been now tapering from a prednisone. The patient has a cough although the cough is getting better. It is nonproductive in nature. Moderate severity. 06/09/2022 the patient has a telephone visit today. The patient does not feel well. she completed the antibiotics and also the prednisone taper. When she finishes started feeling significant shortness of breath and fatigue in addition to weakness. She continues on the Trelegy. She is going to run out when she runs out she is going to 1 nebulized therapy. I do believe that is going to be helpful as well. The patient may have a component of adrenal insufficiency secondary to her prolonged prednisone use. It is likely that she needs to be on a small dose. Therefore she is agreeable to starting 10 mg daily and then tapering down to 7.5 until we re-evaluate. Hold off on additional antibiotics at this time. She does continue to use her noninvasive ventilator at nighttime. She is using between 4-6 hours a day. She is still having hard time tolerating it. She is concerned about her anxiety. She gets more anxiety and having some difficulty breathing. She was requesting some lorazepam. I was reluctant to give it to her because of can suppress respiratory drive. Although the patient cannot sleep with her noninvasive ventilator. Therefore, I will give her enough for her to start using it prior to putting on the noninvasive ventilator in order to get proper sleep and rest while using the ventilator she will not have difficulties with hypercarbia which would be the big is concerned with the use of anxiolytics therapy which could suppress her re spiratory drive. As a did tell the patient that I will provide at this prescription and after that she will need to get it from her primary care if she needs additional therapy. 07/03/2022 the patient is here for a pulmonary follow-up visit. She continues to slowly improve. She is not her baseline although she states that she may have a new baseline. She continues on the prednisone 7.5 mg daily and she seems to be tolerating that okay. Will continue with current dose at this time. She continues with a noninvasive ventilator at nighttime. It seems that she is tolerating it better. Today she did have an ABG demonstrating normal acid-base status. Her CO2 to issues slightly elevated from baseline therefore, seems to be responding well to her noninvasive ventilator. Her PaO2 was also reassuring even on the oxygen she is taking right now through her pulse device. Sometimes she gets very anxious and starts hyperventilating. She understands that this will cause worsening air trapping and therefore harder time breathing. We did talk about certain techniques that she can use at that time. Including using a straw technique and purse lip breathing. she can also use the no ninvasive ventilator during the daytime. She is using CBD and seems to be helping her. At time she does use lorazepam. She needs to be care for the respiratory drive. We again talked about lung volume reduction interventions. Based on her previous PFTs her FEV1 is significantly low and her diffusing capacity as well. She will need to get repeat PFTs to see if she is a candidate or not. In addition, the patient is not responding well to the Yupelri. I did provide since with some samples of DuoNeb she can use that 3 times a day in addition to continuing the prednisone. 12/18/2022 the patient is here for a pulmonary follow-up visit. The patient is complaining of worsening dyspnea. The patient also already on oxygen. She has been having worsening chest tightness shortness of breath. Moderate to severe. She went up on her prednisone to 40 mg ended a taper but did not see any significant improvement. She has not been using the nebulizer often because it makes her shaky with tremors and is uncomfortable. She does continue to use the Trelegy inhaler and is also using the noninvasive ventilator at nighttime. She has significant chest tightness and a prolonged expiratory phase. The patient needs to start using her nebulizer more often. I did have Xopenex available and did provide her in order for her to use it twice a day at least to help with her significant bronchoconstriction. The patient will also undergo blood work. Recently she was given additional diuresis. She was having lower extremity edema. My suspicion is that she has cor pulmonale due to her advanced pulmonary disease. The patient will have blood work including a venous gas. And venous gas her CO2 was slightly elevated more than before. Therefore, Saul will be going by her house and will try to adjust her minute ventilation. 03/19/2023 the patient is here for a pulmonary follow-up visit. She feels like she is getting worse. She is getting very deconditioned. She is bee n very sedentary because of the shortness of breath. When she leaves the house she typically uses a wheelchair. She did come in sometime in January because of worsening symptoms. We did do an ABG blood gas which is reassuring and the rest of the blood work as well. She had a chest x-ray without any significant changes. Subsequently after that she was eating sometimes just yesterday and she showed on her piece of food and she started coughing to try to expectorate it. After about half an hour she finally got it out but then started developing severe left-sided chest discomfort. It is reproducible was uncomfortable right below her breast. Hard to take a deep breath in. I believe she fractured a rib. She thinks it is more musculoskeletal. The patient also had a chest x-ray in January demonstrating slight opacity over the left hemithorax. She also had a CT scan from May 2022 demonstrating underlying pulmonary nodules. Therefore will go ahead and request a repeat CT scan to address the abnormal chest x-ray and chest discomfort in the nodules. She will continue with the current respiratory therapy. She did respond well to Xopenex so therefore I will send the Xopenex the pharmacy. Also to note, she is using her noninvasive ventilator. The therapy has been affecting beneficial. Although she tends use it around 10 hours at nighttime. She has a deep amount of sleep but she does use it. I did encourage her to consider using it during the daytime 1-2 hours before lunch and 1-2 hours before dinner. Also would recommend she cut down the hours that she uses it at nighttime. The patient also will be evaluated by her [employer] company and will be instructed on how to use the sip and puff device part of the astral. I am hopeful that she could continue getting a improvement of her work of breathing by using the noninvasive during the daytime. [facility] Medical History Acute and chronic respiratory failure Chronic respiratory failure Chronic respiratory failure Chronic rhinitis COPD (chronic obstructive pulmonary disease) Pulmonary nodules Social History Patient Tobacco Use Status: Former Tobacco user Tobacco use type: Cigarette Years Smoked: 40 years Review of Systems Const Reports fatigue, Denies night sweats and Reports weight loss ENT Denies change in voice, Denies lip swelling, Denies mouth pain, Reports nasal congestion, Reports nasal discharge and Denies tongue swelling Card Reports chest pain, Reports dyspnea and Reports dyspnea on exertion Resp Denies chest congestion, Reports cough, Reports pain on inspiration, Reports pain with cough, Reports dyspnea, Reports dyspnea on exertion and Reports wheezing GI Denies abdominal pain Musc Denies no additional complaints Neuro Denies Neuro-related abnormal movements Psych Denies no additional complaints and Reports anxiety Endo Reports fatigue Juan/Lymph Denies easy bleeding and Denies lymphadenopathy Aller/Immun Denies lip swelling, Denies tongue swelling and Reports wheezing Physical Exam Vital Signs: Last Vital Signs Pulse 75 03/19/23 14:51 Pulse Ox 98 03/19/23 14:51 Oxygen Delivery Method Room Air 03/19/23 14:51 BMI result Body Mass Index 25.7 Const General: comfortable and alert Orientation/consciousness: patient oriented x3 HEENT Head: Yes normocephalic Neck Neck: Yes supple Chest Chest palpation & inspection: normal inspection of the chest Resp Effort & Inspection: normal respiratory effort and prolonged expiratory phase Auscultation: wheezes and diminished lung sounds Cardio Rate: regular rate Rhythm: regular rhythm Heart sounds: S1 normal heart sound present and S2 normal heart sound present GI Auscultation: normal bowel sounds Skin General skin exam: no rashes or lesions noted Neuro General: patient oriented x3 Extrem General: No cyanosis Assessment & Plan Assessment & Plan (1) COPD (chronic obstructive pulmonary disease): Code(s): J44.9 - Chronic obstructive pulmonary disease, unspecified Qualifiers: COPD type: COPD with acute exacerbation Qualified Code(s): J44.1 - Chronic obstructive pulmonary disease with (acute) exacerbation (2) Chronic respiratory failure: Code(s): J96.10 - Chronic respiratory failure, unspecified whether with hypoxia or hypercapnia Qualifiers: Respiratory failure complication: hypoxia and hypercapnia Qualified Code(s): J96.11 - Chronic respiratory failure with hypoxia; J96.12 - Chronic respiratory failure with hypercapnia (3) Chronic rhinitis: Comment: 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 Need to be provided with a sip and puff device for her work of breathing F/U 3-4 months Orders: Orders CT chest wo IV con Today R07.9 - Chest pain, unspecified, R91.8 - Other nonspecific abnormal finding of lung field, R93.89 - Abnormal findings on diagnostic imaging of other specified body structures Medications: New levalbuterol HCl 1.25 mg (3 mL) inhalation BID 180 mL 11RF 30 days J44.9 - Chronic obstructive pulmonary disease, unspecified Coding Level of Care Code Est Pt Level 4 (82966) Diagnoses Chronic obstructive pulmonary disease with acute exacerbation J44.1 COPD type: COPD with acute exacerbation Chronic respiratory failure with hypoxia and hypercapnia J96.11; J96.12 Respiratory failure complication: hypoxia and hypercapnia Chronic rhinitis J31.0 Pulmonary nodules R91.8 Time Spent (min) 21
[2023-03-19 14:51] VITALS: PULSE 75; O2SAT 98; BMI 25.7
== END 2023-03-19 15:25 | disposition home or self-care (01) ==
PROVIDERS: PCP Internal Medicine; Visit Provider Hospitalist
DX: J44.1 Chronic obstructive pulmonary disease with (acute) exacerbation (principal); J96.11 Chronic respiratory failure with hypoxia; J96.12 Chronic respiratory failure with hypercapnia; J31.0 Chronic rhinitis; R91.8 Other nonspecific abnormal finding of lung field
CPT/HCPCS: 99214

== ENCOUNTER → 2023-03-19 14:37 | Outpatient (BNVA) | payer MEDICARE, SELFPAY | PROVIDERS: PCP Internal Medicine; Visit Provider Hospitalist | DX: J44.1 Chronic obstructive pulmonary disease with (acute) exacerbation (principal); J96.11 Chronic respiratory failure with hypoxia; J96.12 Chronic respiratory failure with hypercapnia; J31.0 Chronic rhinitis; R91.8 Other nonspecific abnormal finding of lung field | CPT/HCPCS: 99212 ==

== ENCOUNTER 2023-05-07 14:28 | Outpatient (AMB) | payer MEDICARE, SELFPAY ==
[2023-05-07 14:41] VITALS: PULSE 75; O2SAT 97; BMI 25.2
--- NOTE | 2023-05-07 14:41 | MHC.OFFVIS ---
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 She is currently oxygen dependent. She does have a portable oxygen concentrator that she uses with activity. In the meantime she has been using trelegy inhaler with good effect. She did try Daliresp in the past but not tolerated due to GI side effects. She has not had to use any prednisone or had any antibiotics. The patient had a CT scan of the chest done back in September 2018 done at [facility]. Per report he was noted to the nodules were stable. She should have another CT scan in a year's time. I would have to confirm the CT scan findings. She continues to active. She is continue pulmonary rehab at home. 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 Otherwise she is without any other complaints period. 07/03/2022 the patient is here for a pulmonary follow-up visit. She continues to slowly improve. She is not her baseline although she states that she may have a new baseline. She continues on the prednisone 7.5 mg daily and she seems to be tolerating that okay. Will continue with current dose at this time. She continues with a noninvasive ventilator at nighttime. It seems that she is tolerating it better. Today she did have an ABG demonstrating normal acid-base status. Her CO2 to issues slightly elevated from baseline therefore, seems to be responding well to her noninvasive ventilator. Her PaO2 was also reassuring even on the oxygen she is taking right now through her pulse device. Sometimes she gets very anxious and starts hyperventilating. She understands that this will cause worsening air trapping and therefore harder time breathing. We did talk about certain techniques that she can use at that time. Including using a straw technique and purse lip breathing. she can also use the noninvasive ventilator during the daytime. She is using CBD and seems to be helping her. At time she does use lorazepam. She needs to be care for the respiratory drive. We again talked about lung volume reduction interventions. Based on her previous PFTs her FEV1 is significantly low and her diffusing capacity as well. She will need to get repeat PFTs to see if she is a candidate or not. In addition, the patient is not responding well to the Yupelri. I did provide since with some samples of DuoNeb she can use that 3 times a day in addition to continuing the prednisone. 12/18/2022 the patient is here for a pulmonary follow-up visit. The patient is complaining of worsening dyspnea. The patient also already on oxygen. She has been having worsening chest tightness shortness of breath. Moderate to severe. She went up on her prednisone to 40 mg ended a taper but did not see any significant improvement. She has not been using the nebulizer often because it makes her shaky with tremors and is uncomfortable. She does continue to use the Trelegy inhaler and is also using the noninvasive ventilator at nighttime. She has significant chest tightness and a prolonged expiratory phase. The patient needs to start using her nebulizer more often. I did have Xopenex available and did provide her in order for her to use it twice a day at least to help with her significant bronchoconstriction. The patient will also undergo blood work. Recently she was given additional diuresis. She was having lower extremity edema. My suspicion is that she has cor pulmonale due to her advanced pulmonary disease. The patient will have blood work including a venous gas. And venous gas her CO2 was slightly elevated more than before. Therefore, Saul will be going by her house and will try to adjust her minute ventilation. 03/19/2023 the patient is here for a pulmonary follow-up visit. She feels like she is getting worse. She is getting very deconditioned. She is been very sedentary because of the shortness of breath. When she leaves the house she typically uses a wheelchair. She did come in sometime in January because of worsening symptoms. We did do an ABG blood gas which is reassuring and the rest of the blood work as well. She had a chest x-ray without any significant changes. Subsequently after that she was eating sometimes just yesterday and she showed on her piece of food and she started coughing to try to expectorate it. After about half an hour she finally got it out but then started developing severe left-sided chest discomfort. It is reproducible was uncomfortable right below her breast. Hard to take a deep breath in. I believe she fractured a rib. She thinks it is more musculoskeletal. The patient also had a chest x-ray in January demonstrating slight opacity over the left hemithorax. She also had a CT scan from May 2022 demonstrating underlying pulmonary nodules. Therefore will go ahead and request a repeat CT scan to address the abnormal chest x-ray and chest discomfort in the nodules. She will continue with the current respiratory therapy. She did respond well to Xopenex so therefore I will send the Xopenex the pharmacy. Also to note, she is using her noninvasive ventilator. The therapy has been affecting beneficial. Although she tends use it around 10 hours at nighttime. She has a deep amount of sleep but she does use it. I did encourage her to consider using it during the daytime 1-2 hours before lunch and 1-2 hours before dinner. Also would recommend she cut down the hours that she uses it at nighttime. The patient also will be evaluated by her [employer] company and will be instructed on how to use the sip and puff device part of the astral. I am hopeful that she could continue getting a improvement of her work of breathing by using the noninvasive during the daytime. 05/07/2023 the patient is here for a pulmonary follow-up visit. The patient just recovered from COVID-19. She has had a bad bout of medical issues with significant deconditioning. She cannot perform any activities of daily living in the house and has been has been doing most of it. However, he also had severe COVID ended up in the hospital with all the complications and he is healing himself. The patient is at this point homebound. Only lease for her appointments. Even that is very difficult for her. Will go ahead and start her with VNA services and physical therapy. Respiratory therapy as well. I am hopeful that we can get a little stronger. We did talk briefly about lung transplant evaluation although the patient is reluctant still. In addition to that we did talk about the lung volume reduction interventions such as with [address] valves[address] This is something she will consider only if she felt stronger. Therefore we will try to provide physical therapy and strengthening and then reassess in the springtime when she returns she continues use our respiratory therapy. She also continues the oxygen. At nighttime she is using her noninvasive ventilator. All these therapies have been affecting beneficial issues that her condition is progressing. FOR[facility]LY [facility] Medical History Acute and chronic respiratory failure Chronic respiratory failure Chronic respiratory failure Chronic rhinitis COPD (chronic obstructive pulmonary disease) Pulmonary nodules Social History Patient Tobacco Use Status: Former Tobacco user Tobacco use type: Cigarette Years Smoked: 40 years Review of Systems Const Reports fatigue, Denies night sweats and Reports weight loss ENT Denies change in voice, Denies lip swelling, Denies mouth pain, Reports nasal congestion, Reports nasal discharge and Denies tongue swelling Card Reports chest pain, Reports dyspnea and Reports dyspnea on exertion Resp Denies chest congestion, Reports cough, Reports pain on inspiration, Reports pain with cough, Reports dyspnea, Reports dyspnea on exertion and Reports wheezing GI Denies abdominal pain Musc Denies no additional complaints Neuro Denies Neuro-related abnormal movements Psych Denies no additional complaints and Reports anxiety Endo Reports fatigue Juan/Lymph Denies easy bleeding and Denies lymphadenopathy Aller/Immun Denies lip swelling, Denies tongue swelling and Reports wheezing Physical Exam Vital Signs: Last Vital Signs Pulse 75 05/07/23 14:41 Pulse Ox 97 05/07/23 14:41 Oxygen Delivery Method Room Air 05/07/23 14:41 BMI result Body Mass Index 25.2 Const General: comfortable and alert Orientation/consciousness: patient oriented x3 HEENT Head: Yes normocephalic Neck Neck: Yes supple Chest Chest palpation & inspection: normal inspection of the chest Resp Effort & Inspection: normal respiratory effort and prolonged expiratory phase Auscultation: no wheezes and diminished lung sounds Cardio Rate: regular rate Rhythm: regular rhythm Heart sounds: S1 normal heart sound present and S2 normal heart sound present GI Auscultation: normal bowel sounds Skin General skin exam: no rashes or lesions noted Neuro General: patient oriented x3 Extrem General: No cyanosis Assessment & Plan Assessment & Plan (1) COPD (chronic obstructive pulmonary disease): Code(s): J44.9 - Chronic obstructive pulmonary disease, unspecified Qualifiers: COPD type: COPD with acute exacerbation Qualified Code(s): J44.1 - Chronic obstructive pulmonary disease with (acute) exacerbation (2) Chronic respiratory failure: Code(s): J96.10 - Chronic respiratory failure, unspecified whether with hypoxia or hypercapnia Qualifiers: Respiratory failure complication: hypoxia and hypercapnia Qualified Code(s): J96.11 - Chronic respiratory failure with hypoxia; J96.12 - Chronic respiratory failure with hypercapnia (3) Chronic rhinitis: Comment: 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 Code(s): J31.0 - Chronic rhinitis (4) Pulmonary nodules: Code(s): R91.8 - Other nonspecific abnormal finding of lung field Plan The patient is homebound and very deconditioned. Will set up VNA services for respiratory/PT/OT. Also needs help with her ADLS, will benefit from SALES ENABLEMENT ANALYST assistance CT chest cancelled per the pt's request continue xopex BID (Tried and failed albuterol with tremors and tachycradia) continue Trelegy Prednisone 7.5mg daily continue PPI use saline gel for her nose Continue oxygen supplementation [facility] to adjust noninvasive ventilator to help with hypercapnea. Need to be provided with a sip and puff device for her work of breathing consider Lung volume reduction if she gets a little stronger F/U 3-4 months Orders: Referrals [facility] Referral J96.10 - Chronic respiratory failure, unspecified whether with hypoxia or hypercapnia Medications: Refilled levalbuterol HCl 1.25 mg (3 mL) inhalation BID 30 days 180 mL 11RF J44.9 - Chronic obstructive pulmonary disease, unspecified Coding Level of Care Code Est Pt Level 4 (05286) Diagnoses Chronic obstructive pulmonary disease with acute exacerbation J44.1 COPD type: COPD with acute exacerbation Chronic respiratory failure with hypoxia and hypercapnia J96.11; J96.12 Respiratory failure complication: hypoxia and hypercapnia Chronic rhinitis J31.0 Pulmonary nodules R91.8 Time Spent (min) 18
== END 2023-05-07 15:06 | disposition home or self-care (01) ==
PROVIDERS: PCP Internal Medicine; Visit Provider Hospitalist
DX: J44.1 Chronic obstructive pulmonary disease with (acute) exacerbation (principal); J96.11 Chronic respiratory failure with hypoxia; J96.12 Chronic respiratory failure with hypercapnia; J31.0 Chronic rhinitis; R91.8 Other nonspecific abnormal finding of lung field
CPT/HCPCS: 99214

== ENCOUNTER → 2023-05-07 14:28 | Outpatient (BNVA) | payer MEDICARE, SELFPAY | PROVIDERS: PCP Internal Medicine; Visit Provider Hospitalist | DX: J44.1 Chronic obstructive pulmonary disease with (acute) exacerbation (principal); J96.11 Chronic respiratory failure with hypoxia; J96.12 Chronic respiratory failure with hypercapnia; R91.8 Other nonspecific abnormal finding of lung field; J31.0 Chronic rhinitis | CPT/HCPCS: 99212 ==

== ENCOUNTER 2023-08-27 14:40 | Outpatient (REF) | payer MEDICARE, SELFPAY ==
[2023-08-27 15:30] LABS: MANUAL DIFF FLAG NO
[2023-08-27 15:32] LABS: Basophils Percent Auto 0.4 % (0-2); Eosinophils Absolute Auto 0.1 X10*3/uL (0.0-0.4); Eosinophils Percent Auto 1.5 % (0-4); Hematocrit 40.6 % (37.0-47.0); Hemoglobin 13.1 g/dl (12.0-16.0); Imm Gran Abs Auto 0.09 X10*3/uL (0.00-0.03); Lymphocytes Absolute Auto 1.2 X10*3/uL (1.2-4.9); Lymphocytes Percent Auto 13.5 % (20-40); Mean Corpuscular HGB Conc 32.3 g/dl (31.0-35.0); Mean Corpuscular Hemoglobin 31.6 pg (27.0-33.0); Mean Corpuscular Volume 98.1 fL (80.0-98.0); Mean Platelet Volume 10.4 fL (9.4-12.3); Monocytes Absolute Auto 0.7 X10*3/uL (0.1-1.2); Monocytes Percent Auto 8.1 % (2-11); Neutrophils Absolute Auto 6.9 x10*3/uL (2.0-8.3); Neutrophils Percent Auto 75.5 % (45-73); Platelet Count 259 X10*3/uL (160-400); Red Blood Count 4.14 X10*6/uL (4.20-5.50); Red Cell Distribution Width 13.2 % (11.0-16.0); White Blood Count 9.2 X10*3/uL (4.8-10.8)
[2023-08-27 15:41] LABS: Venous Blood Gas Refer to POC result
[2023-08-27 15:44] LABS: VBG Base Excess 7.4 mmol/L; VBG HCO3 35 mmol/L (22-26); VBG O2 % Saturation < 30.0 %; VBG pCO2 61 mmHg; VBG pH 7.35 (7.32-7.43); VBG pO2 22 mmHg
[2023-08-27 15:53] LABS: Alanine Aminotransferase 18 U/L (0-31); Albumin Level 4.6 g/dL (3.5-5.0); Alkaline Phosphatase 63 U/L (39-117); Anion Gap 12 (12-20); Aspartate Amino Transferase 20 U/L (5-31); Bilirubin Direct 0.2 mg/dL (0.0-0.5); Bilirubin Total 0.4 mg/dL (0.0-1.0); Blood Urea Nitrogen 19 mg/dL (9-16); Carbon Dioxide 33 mmol/L (22-29); Chloride 99 mmol/L (96-108); Estimated Glomerular Filt Rate 50; Glucose Random 112 mg/dL (60-115); Potassium 4.4 mmol/L (3.3-5.1); Sodium 140 mmol/L (135-145); Total Protein 7.2 g/dL (6.5-8.0)
[2023-08-27 16:09] LABS: Ferritin 57 ng/mL (10-250); TSH reflex Free T4 1.61 uIU/mL (0.32-4.0)
== END 2023-08-27 14:41 | disposition home or self-care (01) ==
LOC: HO.LAB 14:40
PROVIDERS: PCP Internal Medicine; Visit Provider Hospitalist
DX: R91.8 Other nonspecific abnormal finding of lung field (principal); J31.0 Chronic rhinitis; J44.1 Chronic obstructive pulmonary disease with (acute) exacerbation; J96.11 Chronic respiratory failure with hypoxia; J96.12 Chronic respiratory failure with hypercapnia; Z86.16 Personal history of COVID-19; R07.9 Chest pain, unspecified
CPT/HCPCS: 36415; 80048; 80076; 82728; 82803; 84443; 85025; 99212

== ENCOUNTER 2023-08-27 14:40 | Outpatient (AMB) | payer MEDICARE, SELFPAY ==
[2023-08-27 14:47] VITALS: PULSE 72; O2SAT 95; BMI 24.9
--- NOTE | 2023-08-27 14:47 | MHC.OFFVIS ---
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 She is currently oxygen dependent. She does have a portable oxygen concentrator that she uses with activity. In the meantime she has been using trelegy inhaler with good effect. She did try Daliresp in the past but not tolerated due to GI side effects. She has not had to use any prednisone or had any antibiotics. The patient had a CT scan of the chest done back in September 2018 done at [facility]. Per report he was noted to the nodules were stable. She should have another CT scan in a year's time. I would have to confirm the CT scan findings. She continues to active. She is continue pulmonary rehab at home. 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 Otherwise she is without any other complaints period. 07/03/2022 the patient is here for a pulmonary follow-up visit. She continues to slowly improve. She is not her baseline although she states that she may have a new baseline. She continues on the prednisone 7.5 mg daily and she seems to be tolerating that okay. Will continue with current dose at this time. She continues with a noninvasive ventilator at nighttime. It seems that she is tolerating it better. Today she did have an ABG demonstrating normal acid-base status. Her CO2 to issues slightly elevated from baseline therefore, seems to be responding well to her noninvasive ventilator. Her PaO2 was also reassuring even on the oxygen she is taking right now through her pulse device. Sometimes she gets very anxious and starts hyperventilating. She understands that this will cause worsening air trapping and therefore harder time breathing. We did talk about certain techniques that she can use at that time. Including using a straw technique and purse lip breathing. she can also use the noninvasive ventilator during the daytime. She is using CBD and seems to be helping her. At time she does use lorazepam. She needs to be care for the respiratory drive. We again talked about lung volume reduction interventions. Based on her previous PFTs her FEV1 is significantly low and her diffusing capacity as well. She will need to get repeat PFTs to see if she is a candidate or not. In addition, the patient is not responding well to the Yupelri. I did provide since with some samples of DuoNeb she can use that 3 times a day in addition to continuing the prednisone. 12/18/2022 the patient is here for a pulmonary follow-up visit. The patient is complaining of worsening dyspnea. The patient also already on oxygen. She has been having worsening chest tightness shortness of breath. Moderate to severe. She went up on her prednisone to 40 mg ended a taper but did not see any significant improvement. She has not been using the nebulizer often because it makes her shaky with tremors and is uncomfortable. She does continue to use the Trelegy inhaler and is also using the noninvasive ventilator at nighttime. She has significant chest tightness and a prolonged expiratory phase. The patient needs to start using her nebulizer more often. I did have Xopenex available and did provide her in order for her to use it twice a day at least to help with her significant bronchoconstriction. The patient will also undergo blood work. Recently she was given additional diuresis. She was having lower extremity edema. My suspicion is that she has cor pulmonale due to her advanced pulmonary disease. The patient will have blood work including a venous gas. And venous gas her CO2 was slightly elevated more than before. Therefore, Saul will be going by her house and will try to adjust her minute ventilation. 03/19/2023 the patient is here for a pulmonary follow-up visit. She feels like she is getting worse. She is getting very deconditioned. She is been very sedentary because of the shortness of breath. When she leaves the house she typically uses a wheelchair. She did come in sometime in January because of worsening symptoms. We did do an ABG blood gas which is reassuring and the rest of the blood work as well. She had a chest x-ray without any significant changes. Subsequently after that she was eating sometimes just yesterday and she showed on her piece of food and she started coughing to try to expectorate it. After about half an hour she finally got it out but then started developing severe left-sided chest discomfort. It is reproducible was uncomfortable right below her breast. Hard to take a deep breath in. I believe she fractured a rib. She thinks it is more musculoskeletal. The patient also had a chest x-ray in January demonstrating slight opacity over the left hemithorax. She also had a CT scan from May 2022 demonstrating underlying pulmonary nodules. Therefore will go ahead and request a repeat CT scan to address the abnormal chest x-ray and chest discomfort in the nodules. She will continue with the current respiratory therapy. She did respond well to Xopenex so therefore I will send the Xopenex the pharmacy. Also to note, she is using her noninvasive ventilator. The therapy has been affecting beneficial. Although she tends use it around 10 hours at nighttime. She has a deep amount of sleep but she does use it. I did encourage her to consider using it during the daytime 1-2 hours before lunch and 1-2 hours before dinner. Also would recommend she cut down the hours that she uses it at nighttime. The patient also will be evaluated by her [employer] company and will be instructed on how to use the sip and puff device part of the astral. I am hopeful that she could continue getting a improvement of her work of breathing by using the noninvasive during the daytime. 05/07/2023 the patient is here for a pulmonary follow-up visit. The patient just recovered from COVID-19. She has had a bad bout of medical issues with significant deconditioning. She cannot perform any activities of daily living in the house and has been has been doing most of it. However, he also had severe COVID ended up in the hospital with all the complications and he is healing himself. The patient is at this point homebound. Only lease for her appointments. Even that is very difficult for her. Will go ahead and start her with VNA services and physical therapy. Respiratory therapy as well. I am hopeful that we can get a little stronger. We did talk briefly about lung transplant evaluation although the patient is reluctant still. In addition to that we did talk about the lung volume reduction interventions such as with [address]. This is something she will consider only if she felt stronger. Therefore we will try to provide physical therapy and strengthening and then reassess in the springtime when she returns she continues use our respiratory therapy. She also continues the oxygen. At nighttime she is using her noninvasive ventilator. All these therapies have been affecting beneficial issues that her condition is progressing. COUNT INCLUDES THE [facility] Medical History Acute and chronic respiratory failure Chronic respiratory failure Chronic respiratory failure Chronic rhinitis COPD (chronic obstructive pulmonary disease) Pulmonary nodules Social History Patient Tobacco Use Status: Former Tobacco user Tobacco use type: Cigarette Years Smoked: 40 years Review of Systems Const Reports fatigue, Denies night sweats and Reports weight loss ENT Denies change in voice, Denies lip swelling, Denies mouth pain, Reports nasal congestion, Reports nasal discharge and Denies tongue swelling Card Reports chest pain, Reports dyspnea and Reports dyspnea on exertion Resp Denies chest congestion, Reports cough, Reports pain on inspiration, Reports pain with cough, Reports dyspnea, Reports dyspnea on exertion and Reports wheezing GI Denies abdominal pain Musc Denies no additional complaints Neuro Denies Neuro-related abnormal movements Psych Denies no additional complaints and Reports anxiety Endo Reports fatigue Juan/Lymph Denies easy bleeding and Denies lymphadenopathy Aller/Immun Denies lip swelling, Denies tongue swelling and Reports wheezing Physical Exam Vital Signs: Last Vital Signs Pulse 72 08/27/23 14:47 Pulse Ox 95 08/27/23 14:47 Oxygen Delivery Method Room Air 08/27/23 14:47 BMI result Body Mass Index 24.9 Const General: comfortable and alert Orientation/consciousness: patient oriented x3 HEENT Head: Yes normocephalic Neck Neck: Yes supple Chest Chest palpation & inspection: normal inspection of the chest Resp Effort & Inspection: normal respiratory effort and prolonged expiratory phase Auscultation: no wheezes and diminished lung sounds Cardio Rate: regular rate Rhythm: regular rhythm Heart sounds: S1 normal heart sound present and S2 normal heart sound present GI Auscultation: normal bowel sounds Skin General skin exam: no rashes or lesions noted Neuro General: patient oriented x3 Extrem General: No cyanosis Assessment & Plan Assessment & Plan (1) COPD (chronic obstructive pulmonary disease): Code(s): J44.9 - Chronic obstructive pulmonary disease, unspecified Qualifiers: COPD type: COPD with acute exacerbation Qualified Code(s): J44.1 - Chronic obstructive pulmonary disease with (acute) exacerbation (2) Chronic respiratory failure: Code(s): J96.10 - Chronic respiratory failure, unspecified whether with hypoxia or hypercapnia Qualifiers: Respiratory failure complication: hypoxia and hypercapnia Qualified Code(s): J96.11 - Chronic respiratory failure with hypoxia; J96.12 - Chronic respiratory failure with hypercapnia (3) Chronic rhinitis: Comment: 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 Code(s): J31.0 - Chronic rhinitis (4) Pulmonary nodules: Code(s): R91.8 - Other nonspecific abnormal finding of lung field Plan continue xopex BID (Tried and failed albuterol with tremors and tachycradia) continue Trelegy Prednisone 7.5mg daily, will try to cut down to 5mg daily slowly. continue PPI use saline gel for her nose Continue oxygen supplementation continue NIV while sleeping and as needed, needs a F30 or F30i mask. Provided an N30i mask for her to try consider Lung volume reduction intervention if she gets a little stronger Bloodwork/VBG F/U 3-4 months Orders: Orders Complete Blood Count Auto Diff 08/27/23 J96.10 - Chronic respiratory failure, unspecified whether with hypoxia or hypercapnia, R07.9 - Chest pain, unspecified Venous Blood Gas 08/27/23 J96.10 - Chronic respiratory failure, unspecified whether with hypoxia or hypercapnia, R07.9 - Chest pain, unspecified Liver Panel 08/27/23 J96.10 - Chronic respiratory failure, unspecified whether with hypoxia or hypercapnia, R07.9 - Chest pain, unspecified Ferritin 08/27/23 J96.10 - Chronic respiratory failure, unspecified whether with hypoxia or hypercapnia, R07.9 - Chest pain, unspecified Basic Metabolic Panel 08/27/23 J96.10 - Chronic respiratory failure, unspecified whether with hypoxia or hypercapnia, R07.9 - Chest pain, unspecified TSH reflex Free T4 08/27/23 J96.10 - Chronic respiratory failure, unspecified whether with hypoxia or hypercapnia, R07.9 - Chest pain, unspecified Coding Level of Care Code Est Pt Level 4 (65093) Diagnoses Chronic obstructive pulmonary disease with acute exacerbation J44.1 COPD type: COPD with acute exacerbation Chronic respiratory failure with hypoxia and hypercapnia J96.11; J96.12 Respiratory failure complication: hypoxia and hypercapnia Chronic rhinitis J31.0 Pulmonary nodules R91.8 Time Spent (min) 16
== END 2023-08-27 15:14 | disposition home or self-care (01) ==
PROVIDERS: PCP Internal Medicine; Visit Provider Hospitalist
DX: J44.1 Chronic obstructive pulmonary disease with (acute) exacerbation (principal); J96.11 Chronic respiratory failure with hypoxia; J96.12 Chronic respiratory failure with hypercapnia; J31.0 Chronic rhinitis; R91.8 Other nonspecific abnormal finding of lung field
CPT/HCPCS: 99214

== ENCOUNTER 2023-11-19 12:56 | Outpatient (AMB) | payer MEDICARE, SELFPAY ==
--- NOTE | 2023-11-19 12:57 | MHC.OFFVIS ---
Vital Signs 11/19/23 12:57 Height 5 ft 4 in Intake Visit Reasons: copd [employer] Required: No Allergies sulfamethoxazole [Bactrim] Allergy (Intermediate, Verified 11/19/23 12:58) Rash trimethoprim [Bactrim] Allergy (Intermediate, Verified 11/19/23 12:58) rash Codeine Allergy (Severe, Uncoded 11/19/23 12:58) Rash Erythromycin Allergy (Intermediate, Uncoded 11/19/23 12:58) Rash HPI Comments Details: The patient is a 67-year-old woman with known pulmonary nodules in COPD. She is currently oxygen dependent. She does have a portable oxygen concentrator that she uses with activity. In the meantime she has been using trelegy inhaler with good effect. She did try Daliresp in the past but not tolerated due to GI side effects. She has not had to use any prednisone or had any antibiotics. The patient had a CT scan of the chest done back in September 2018 done at [facility]. Per report he was noted to the nodules were stable. She should have another CT scan in a year's time. I would have to confirm the CT scan findings. She continues to active. She is continue pulmonary rehab at home. 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 Otherwise she is without any other complaints period. 07/03/2022 the patient is here for a pulmonary follow-up visit. She continues to slowly improve. She is not her baseline although she states that she may have a new baseline. She continues on the prednisone 7.5 mg daily and she seems to be tolerating that okay. Will continue with current dose at this time. She continues with a noninvasive ventilator at nighttime. It seems that she is tolerating it better. Today she did have an ABG demonstrating normal acid-base status. Her CO2 to issues slightly elevated from baseline therefore, seems to be responding well to her noninvasive ventilator. Her PaO2 was also reassuring even on the oxygen she is taking right now through her pulse device. Sometimes she gets very anxious and starts hyperventilating. She understands that this will cause worsening air trapping and therefore harder time breathing. We did talk about certain techniques that she can use at that time. Including using a straw technique and purse lip breathing. she can also use the noninvasive ventilator during the daytime. She is using CBD and seems to be helping her. At time she does use lorazepam. She needs to be care for the respiratory drive. We again talked about lung volume reduction interventions. Based on her previous PFTs her FEV1 is significantly low and her diffusing capacity as well. She will need to get repeat PFTs to see if she is a candidate or not. In addition, the patient is not responding well to the Yupelri. I did provide since with some samples of DuoNeb she can use that 3 times a day in addition to continuing the prednisone. 12/18/2022 the patient is here for a pulmonary follow-up visit. The patient is complaining of worsening dyspnea. The patient also already on oxygen. She has been having worsening chest tightness shortness of breath. Moderate to severe. She went up on her prednisone to 40 mg ended a taper but did not see any significant improvement. She has not been using the nebulizer often because it makes her shaky with tremors and is uncomfortable. She does continue to use the Trelegy inhaler and is also using the noninvasive ventilator at nighttime. She has significant chest tightness and a prolonged expiratory phase. The patient needs to start using her nebulizer more often. I did have Xopenex available and did provide her in order for her to use it twice a day at least to help with her significant bronchoconstriction. The patient will also undergo blood work. Recently she was given additional diuresis. She was having lower extremity edema. My suspicion is that she has cor pulmonale due to her advanced pulmonary disease. The patient will have blood work including a venous gas. And venous gas her CO2 was slightly elevated more than before. Therefore, Saul will be going by her house and will try to adjust her minute ventilation. 03/19/2023 the patient is here for a pulmonary follow-up visit. She feels like she is getting worse. She is getting very deconditioned. She is been very sedentary because of the shortness of breath. When she leaves the house she typically uses a wheelchair. She did come in sometime in January because of worsening symptoms. We did do an ABG blood gas which is reassuring and the rest of the blood work as well. She had a chest x-ray without any significant changes. Subsequently after that she was eating sometimes just yesterday and she showed on her piece of food and she started coughing to try to expectorate it. After about half an hour she finally got it out but then started developing severe left-sided chest discomfort. It is reproducible was uncomfortable right below her breast. Hard to take a deep breath in. I believe she fractured a rib. She thinks it is more musculoskeletal. The patient also had a chest x-ray in January demonstrating slight opacity over the left hemithorax. She also had a CT scan from May 2022 demonstrating underlying pulmonary nodules. Therefore will go ahead and request a repeat CT scan to address the abnormal chest x-ray and chest discomfort in the nodules. She will continue with the current respiratory therapy. She did respond well to Xopenex so therefore I will send the Xopenex the pharmacy. Also to note, she is using her noninvasive ventilator. The therapy has been affecting beneficial. Although she tends use it around 10 hours at nighttime. She has a deep amount of sleep but she does use it. I did encourage her to consider using it during the daytime 1-2 hours before lunch and 1-2 hours before dinner. Also would recommend she cut down the hours that she uses it at nighttime. The patient also will be evaluated by her [employer] and will be instructed on how to use the sip and puff device part of the astral. I am hopeful that she could continue getting a improvement of her work of breathing by using the noninvasive during the daytime. 05/07/2023 the patient is here for a pulmonary follow-up visit. The patient just recovered from COVID-19. She has had a bad bout of medical issues with significant deconditioning. She cannot perform any activities of daily living in the house and has been has been doing most of it. However, he also had severe COVID ended up in the hospital with all the complications and he is healing himself. The patient is at this point homebound. Only lease for her appointments. Even that is very difficult for her. Will go ahead and start her with VNA services and physical therapy. Respiratory therapy as well. I am hopeful that we can get a little stronger. We did talk briefly about lung transplant evaluation although the patient is reluctant still. In addition to that we did talk about the lung volume reduction interventions such as with [address] valves. This is something she will consider only if she felt stronger. Therefore we will try to provide physical therapy and strengthening and then reassess in the springtime when she returns she continues use our respiratory therapy. She also continues the oxygen. At nighttime she is using her noninvasive ventilator. All these therapies have been affecting beneficial issues that her condition is progressing. 11/19/2023 the patient has a telehealth visit today. She has finally feeling a little better. On recovering from severe COVID. Also with severe COPD. has difficult time with her activities of daily living. She does have assistance with her family. She does have the ventilator that she uses with good effect. Been affecting beneficial. She will continue to use it every night and also as needed. She does have increased work of breathing however. We did look at her medications she is already maximizing her respiratory therapy. She did try decreasing the prednisone but she could not therefore she continued anything 0.5 mg which is reasonable. She is agreeable to try now modafinil stimulant to see if we can help her respiratory drive. The patient will watch for any adverse effects. Will keep her on a low dose of 100 mg. any questions or concerns with the medications. Call will follow-up in 3-4 months or sooner if needed. [facility] Medical History Acute and chronic respiratory failure Chronic respiratory failure Chronic respiratory failure Chronic rhinitis COPD (chronic obstructive pulmonary disease) Pulmonary nodules Social History Patient Tobacco Use Status: Former Tobacco user Tobacco use type: Cigarette Years Smoked: 40 years Review of Systems Const Reports fatigue, Denies night sweats and Reports weight loss ENT Denies change in voice, Denies lip swelling, Denies mouth pain, Reports nasal congestion, Reports nasal discharge and Denies tongue swelling Card Reports chest pain, Reports dyspnea and Reports dyspnea on exertion Resp Denies chest congestion, Reports cough, Reports pain on inspiration, Reports pain with cough, Reports dyspnea, Reports dyspnea on exertion and Reports wheezing GI Denies abdominal pain Musc Denies no additional complaints Neuro Denies Neuro-related abnormal movements Psych Denies no additional complaints and Reports anxiety Endo Reports fatigue Juan/Lymph Denies easy bleeding and Denies lymphadenopathy Aller/Immun Denies lip swelling, Denies tongue swelling and Reports wheezing Physical Exam Const General: cooperative and comfortable Orientation/consciousness: patient oriented x3 Resp Effort & Inspection: normal respiratory effort and able to speak in complete sentences Neuro General: patient oriented x3 Telehealth Telehealth Telehealth Platform: Telephone Location of provider rendering services: practice address Location of patient: address on file Patient Identification confirmed using: Name, : Yes Telehealth method: voice only Patient verbally consented to treatment: Yes Patient verbally consented to billing insurance company: Yes Patient informed of any privacy concerns related to visit: Yes Assessment & Plan Assessment & Plan (1) COPD (chronic obstructive pulmonary disease): Code(s): J44.9 - Chronic obstructive pulmonary disease, unspecified Category: Medical Qualifiers: COPD type: COPD with acute exacerbation Qualified Code(s): J44.1 - Chronic obstructive pulmonary disease with (acute) exacerbation (2) Chronic respiratory failure: Code(s): J96.10 - Chronic respiratory failure, unspecified whether with hypoxia or hypercapnia Category: Medical Qualifiers: Respiratory failure complication: hypoxia and hypercapnia Qualified Code(s): J96.11 - Chronic respiratory failure with hypoxia; J96.12 - Chronic respiratory failure with hypercapnia (3) Chronic rhinitis: 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 Provided an N30i mask Trial Modafinil to help with her respiratory drive F/U 3-4 months Medications: New modafinil 100 mg PO DAILY 30 tabs 3RF 30 days Coding Level of Care Code Tele Est Pt Level 4 (82759) Diagnoses Chronic obstructive pulmonary disease with acute exacerbation J44.1 COPD type: COPD with acute exacerbation Chronic respiratory failure with hypoxia and hypercapnia J96.11; J96.12 Respiratory failure complication: hypoxia and hypercapnia Chronic rhinitis J31.0 Pulmonary nodules R91.8 Time Spent (min) 15
== END 2023-11-19 14:00 | disposition home or self-care (01) ==
LOC: HO.HPS 12:57
PROVIDERS: PCP Internal Medicine; Visit Provider Hospitalist
DX: J44.1 Chronic obstructive pulmonary disease with (acute) exacerbation (principal); J96.11 Chronic respiratory failure with hypoxia; J96.12 Chronic respiratory failure with hypercapnia; J31.0 Chronic rhinitis; R91.8 Other nonspecific abnormal finding of lung field
CPT/HCPCS: 99442

== ENCOUNTER → 2023-11-19 12:56 | Outpatient (BNVA) | payer MEDICARE, SELFPAY | PROVIDERS: PCP Internal Medicine; Visit Provider Hospitalist ==

== ENCOUNTER 2024-03-01 13:56 | Outpatient (AMB) | payer MEDICARE, SELFPAY ==
[2024-03-01 13:57] VITALS: BMI 23.2
--- NOTE | 2024-03-01 13:57 | MHC.OFFVIS ---
Vital Signs 03/01/24 13:57 Height 5 ft 4 in Weight 135 lb BMI 23.2 Intake Visit Reasons: COPD [employer] Required: No Allergies sulfamethoxazole [Bactrim] Allergy (Intermediate, Verified 03/01/24 13:57) Rash trimethoprim [Bactrim] Allergy (Intermediate, Verified 03/01/24 13:57) rash Codeine Allergy (Severe, Uncoded 03/01/24 13:57) Rash Erythromycin Allergy (Intermediate, Uncoded 03/01/24 13:57) Rash HPI Comments Details: The patient is a 68-year-old woman with known pulmonary nodules in COPD. She is currently oxygen dependent. She does have a portable oxygen concentrator that she uses with activity. In the meantime she has been using trelegy inhaler with good effect. She did try Daliresp in the past but not tolerated due to GI side effects. She has not had to use any prednisone or had any antibiotics. The patient had a CT scan of the chest done back in September 2018 done at [facility]. Per report he was noted to the nodules were stable. She should have another CT scan in a year's time. I would have to confirm the CT scan findings. She continues to active. She is continue pulmonary rehab at home. 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 Otherwise she is without any other complaints period. 07/03/2022 the patient is here for a pulmonary follow-up visit. She continues to slowly improve. She is not her baseline although she states that she may have a new baseline. She continues on the prednisone 7.5 mg daily and she seems to be tolerating that okay. Will continue with current dose at this time. She continues with a noninvasive ventilator at nighttime. It seems that she is tolerating it better. Today she did have an ABG demonstrating normal acid-base status. Her CO2 to issues slightly elevated from baseline therefore, seems to be responding well to her noninvasive ventilator. Her PaO2 was also reassuring even on the oxygen she is taking right now through her pulse device. Sometimes she gets very anxious and starts hyperventilating. She understands that this will cause worsening air trapping and therefore harder time breathing. We did talk about certain techniques that she can use at that time. Including using a straw technique and purse lip breathing. she can also use the noninvasive ventilator during the daytime. She is using CBD and seems to be helping her. At time she does use lorazepam. She needs to be care for the respiratory drive. We again talked about lung volume reduction interventions. Based on her previous PFTs her FEV1 is significantly low and her diffusing capacity as well. She will need to get repeat PFTs to see if she is a candidate or not. In addition, the patient is not responding well to the Yupelri. I did provide since with some samples of DuoNeb she can use that 3 times a day in addition to continuing the prednisone. 12/18/2022 the patient is here for a pulmonary follow-up visit. The patient is complaining of worsening dyspnea. The patient also already on oxygen. She has been having worsening chest tightness shortness of breath. Moderate to severe. She went up on her prednisone to 40 mg ended a taper but did not see any significant improvement. She has not been using the nebulizer often because it makes her shaky with tremors and is uncomfortable. She does continue to use the Trelegy inhaler and is also using the noninvasive ventilator at nighttime. She has significant chest tightness and a prolonged expiratory phase. The patient needs to start using her nebulizer more often. I did have Xopenex available and did provide her in order for her to use it twice a day at least to help with her significant bronchoconstriction. The patient will also undergo blood work. Recently she was given additional diuresis. She was having lower extremity edema. My suspicion is that she has cor pulmonale due to her advanced pulmonary disease. The patient will have blood work including a venous gas. And venous gas her CO2 was slightly elevated more than before. Therefore, Saul will be going by her house and will try to adjust her minute ventilation. 03/19/2023 the patient is here for a pulmonary follow-up visit. She feels like she is getting worse. She is getting very deconditioned. She is been very sedentary because of the shortness of breath. When she leaves the house she typically uses a wheelchair. She did come in sometime in January because of worsening symptoms. We did do an ABG blood gas which is reassuring and the rest of the blood work as well. She had a chest x-ray without any significant changes. Subsequently after that she was eating sometimes just yesterday and she showed on her piece of food and she started coughing to try to expectorate it. After about half an hour she finally got it out but then started developing severe left-sided chest discomfort. It is reproducible was uncomfortable right below her breast. Hard to take a deep breath in. I believe she fractured a rib. She thinks it is more musculoskeletal. The patient also had a chest x-ray in January demonstrating slight opacity over the left hemithorax. She also had a CT scan from May 2022 demonstrating underlying pulmonary nodules. Therefore will go ahead and request a repeat CT scan to address the abnormal chest x-ray and chest discomfort in the nodules. She will continue with the current respiratory therapy. She did respond well to Xopenex so therefore I will send the Xopenex the pharmacy. Also to note, she is using her noninvasive ventilator. The therapy has been affecting beneficial. Although she tends use it around 10 hours at nighttime. She has a deep amount of sleep but she does use it. I did encourage her to consider using it during the daytime 1-2 hours before lunch and 1-2 hours before dinner. Also would recommend she cut down the hours that she uses it at nighttime. The patient also will be evaluated by her [employer] and will be instructed on how to use the sip and puff device part of the astral. I am hopeful that she could continue getting a improvement of her work of breathing by using the noninvasive during the daytime. 05/07/2023 the patient is here for a pulmonary follow-up visit. The patient just recovered from COVID-19. She has had a bad bout of medical issues with significant deconditioning. She cannot perform any activities of daily living in the house and has been has been doing most of it. However, he also had severe COVID ended up in the hospital with all the complications and he is healing himself. The patient is at this point homebound. Only lease for her appointments. Even that is very difficult for her. Will go ahead and start her with VNA services and physical therapy. Respiratory therapy as well. I am hopeful that we can get a little stronger. We did talk briefly about lung transplant evaluation although the patient is reluctant still. In addition to that we did talk about the lung volume reduction interventions such as with [address] valves. This is something she will consider only if she felt stronger. Therefore we will try to provide physical therapy and strengthening and then reassess in the springtime when she returns she continues use our respiratory therapy. She also continues the oxygen. At nighttime she is using her noninvasive ventilator. All these therapies have been affecting beneficial issues that her condition is progressing. 11/19/2023 the patient has a telehealth visit today. She has finally feeling a little better. On recovering from severe COVID. Also with severe COPD. has difficult time with her activities of daily living. She does have assistance with her family. She does have the ventilator that she uses with good effect. Been affecting beneficial. She will continue to use it every night and also as needed. She does have increased work of breathing however. We did look at her medications she is already maximizing her respiratory therapy. She did try decreasing the prednisone but she could not therefore she continued anything 0.5 mg which is reasonable. She is agreeable to try now modafinil stimulant to see if we can help her respiratory drive. The patient will watch for any adverse effects. Will keep her on a low dose of 100 mg. any questions or concerns with the medications. Call will follow-up in 3-4 months or sooner if needed. 03/01/2024 the patient has a telehealth visit today. She was recently hospitalized at [facility] with a severe infection listeria after she a contaminated poor said daily. The patient did have elevated temperatures up to 105. She also had renal failure and almost needed dialysis. She can about 45 lb worse of fluid. However she was able to improve. She was subsequently [facility] to a jail now she made it home. Because she became so weak she was not able to use her inhalers. She was switched over to nebulized solution. She has not been able to tolerate the budesonide because it caused her to be tremulous. She does tolerate the formoterol and also been on Xopenex. The patient also needs to be on a long-acting muscarinic antagonist and will go ahead and just simplify her respiratory regimen. The patient also has been on 10 mg of prednisone which will continue for now. The patient also has been using the noninvasive ventilator. The noninvasive ventilator she was using more regularly. However, since she just got back from the hospital she is not back in the routine. I did recommend she start using it as is going to help her with the work of breathing and make sure that is CO2 stays within normal. The patient will go ahead and start the long-acting muscarinic antagonist via the nebulizer will continue with the long-acting beta agonist and will use the Xopenex as needed. Will go ahead and make an appointment so for sometime in April where she can get blood gas x-ray in additional blood work as needed. [facility] Medical History Acute and chronic respiratory failure Chronic respiratory failure Chronic respiratory failure Chronic rhinitis COPD (chronic obstructive pulmonary disease) Pulmonary nodules Social History Patient Tobacco Use Status: Former Tobacco user Tobacco use type: Cigarette Years Smoked: 40 years Review of Systems Const Reports fatigue, Denies night sweats and Reports weight loss ENT Denies change in voice, Denies lip swelling, Denies mouth pain, Reports nasal congestion, Reports nasal discharge and Denies tongue swelling Card Reports chest pain, Reports dyspnea and Reports dyspnea on exertion Resp Denies chest congestion, Reports cough, Reports pain on inspiration, Reports pain with cough, Reports dyspnea, Reports dyspnea on exertion and Reports wheezing GI Denies abdominal pain Musc Denies no additional complaints Neuro Denies Neuro-related abnormal movements Psych Denies no additional complaints and Reports anxiety Endo Reports fatigue Juan/Lymph Denies easy bleeding and Denies lymphadenopathy Aller/Immun Denies lip swelling, Denies tongue swelling and Reports wheezing Physical Exam Vital Signs: BMI result Body Mass Index 23.2 Const General: cooperative Orientation/consciousness: patient oriented x3 Resp Effort & Inspection: normal respiratory effort and able to speak in complete sentences Neuro General: patient oriented x3 Telehealth Telehealth Telehealth Platform: Telephone Location of provider rendering services: practice address Location of patient: address on file Patient Identification confirmed using: Name, : Yes Telehealth method: voice only Patient verbally consented to treatment: Yes Patient verbally consented to billing insurance company: Yes Patient informed of any privacy concerns related to visit: Yes Assessment & Plan Assessment & Plan (1) COPD (chronic obstructive pulmonary disease): Code(s): J44.9 - Chronic obstructive pulmonary disease, unspecified Category: Medical Qualifiers: COPD type: COPD with acute exacerbation Qualified Code(s): J44.1 - Chronic obstructive pulmonary disease with (acute) exacerbation (2) Chronic respiratory failure: Code(s): J96.10 - Chronic respiratory failure, unspecified whether with hypoxia or hypercapnia Category: Medical Qualifiers: Respiratory failure complication: hypoxia and hypercapnia Qualified Code(s): J96.11 - Chronic respiratory failure with hypoxia; J96.12 - Chronic respiratory failure with hypercapnia (3) Chronic rhinitis: 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 Provided an N30i mask F/U 2-3 months Medications: New arformoterol (Brovana) medicare B 2 mL inhalation Q12H 120 mL 11RF 30 days J44.9 - Chronic obstructive pulmonary disease, unspecified revefenacin (Yupelri) 175 mcg (3 mL) inhalation DAILY 90 mL 11RF 30 days J44.1 - Chronic obstructive pulmonary disease with (acute) exacerbation Coding Level of Care Code Tele Est Pt Level 4 (77320) Complex EM visit Add On G2211 Diagnoses Chronic obstructive pulmonary disease with acute exacerbation J44.1 COPD type: COPD with acute exacerbation Chronic respiratory failure with hypoxia and hypercapnia J96.11; J96.12 Respiratory failure complication: hypoxia and hypercapnia Chronic rhinitis J31.0 Pulmonary nodules R91.8 Time Spent (min) 16
== END 2024-03-01 14:44 | disposition home or self-care (01) ==
LOC: HO.HPS 13:56
PROVIDERS: PCP Student in an Organized Health Care Education/Training Program; Visit Provider Hospitalist
DX: J44.1 Chronic obstructive pulmonary disease with (acute) exacerbation (principal); J96.11 Chronic respiratory failure with hypoxia; J96.12 Chronic respiratory failure with hypercapnia; R91.8 Other nonspecific abnormal finding of lung field
CPT/HCPCS: 99442

== ENCOUNTER → 2024-03-01 13:56 | Outpatient (BNVA) | payer MEDICARE, SELFPAY | PROVIDERS: PCP Student in an Organized Health Care Education/Training Program; Visit Provider Hospitalist ==

== ENCOUNTER 2024-04-25 14:52 | Outpatient (REF) | payer MEDICARE, SELFPAY ==
[2024-04-25 16:26] LABS: MANUAL DIFF FLAG NO
[2024-04-25 16:28] LABS: Venous Blood Gas Refer to POC result
[2024-04-25 16:36] LABS: VBG Base Excess 10.3 mmol/L; VBG HCO3 37 mmol/L (22-26); VBG pCO2 62 mmHg; VBG pH 7.38 (7.32-7.43); VBG pO2 32 mmHg
[2024-04-25 17:12] LABS: Basophils Percent Auto 0.4 % (0-2); Eosinophils Absolute Auto 0.1 X10*3/uL (0.0-0.4); Eosinophils Percent Auto 0.6 % (0-4); Hematocrit 37.6 % (37.0-47.0); Hemoglobin 11.6 g/dl (12.0-16.0); Imm Gran Abs Auto 0.16 X10*3/uL (0.00-0.03); Imm Gran Pct Auto 1.4 % (0.0-0.4); Lymphocytes Percent Auto 8.5 % (20-40); Mean Corpuscular HGB Conc 30.9 g/dl (31.0-35.0); Mean Corpuscular Hemoglobin 30.4 pg (27.0-33.0); Mean Corpuscular Volume 98.7 fL (80.0-98.0); Mean Platelet Volume 11.3 fL (9.4-12.3); Monocytes Absolute Auto 0.5 X10*3/uL (0.1-1.2); Monocytes Percent Auto 4.6 % (2-11); Neutrophils Absolute Auto 9.6 x10*3/uL (2.0-8.3); Neutrophils Percent Auto 84.5 % (45-73); Platelet Count 309 X10*3/uL (160-400); Red Blood Count 3.81 X10*6/uL (4.20-5.50); Red Cell Distribution Width 13.2 % (11.0-16.0); White Blood Count 11.4 X10*3/uL (4.8-10.8)
[2024-04-25 17:41] LABS: Anion Gap 12 (12-20); Blood Urea Nitrogen 32 mg/dL (9-16); Calcium 9.4 mg/dL (8.4-10.2); Carbon Dioxide 32 mmol/L (22-29); Chloride 98 mmol/L (96-108); Estimated Glomerular Filt Rate 53; Glucose Random 117 mg/dL (60-115); Potassium 4.6 mmol/L (3.3-5.1); Sodium 137 mmol/L (135-145)
[2024-04-25 18:01] LABS: Erythrocyte Sedimentation Rate 22 MM/HR (0-20)
[2024-04-26 18:43] LABS: Immunoglobulin E 13 kU/L (<OR=114)
[2024-04-27 15:39] LABS: Immunoglobulin G Subclass 1 341 mg/dL (382-929); Immunoglobulin G Subclass 2 98 mg/dL (241-700); Immunoglobulin G Subclass 3 71 mg/dL (22-178); Immunoglobulin G Total 581 mg/dL (600-1540)
== END 2024-04-25 14:53 | disposition home or self-care (01) ==
LOC: HO.LAB 14:52
PROVIDERS: PCP Student in an Organized Health Care Education/Training Program; Visit Provider Hospitalist
DX: J44.1 Chronic obstructive pulmonary disease with (acute) exacerbation (principal); J96.11 Chronic respiratory failure with hypoxia; J96.12 Chronic respiratory failure with hypercapnia
CPT/HCPCS: 36415; 80048; 82784; 82785; 82803; 85025; 85652; 99212

== ENCOUNTER 2024-04-25 14:52 | Outpatient (AMB) | payer MEDICARE, SELFPAY ==
[2024-04-25 14:57] VITALS: BP 108/52; PULSE 96; O2SAT 97
--- NOTE | 2024-04-25 14:57 | A.OFFVIS_ITS ---
Vital Signs 04/25/24 14:57 Height 5 ft 4 in BP 108/52 L Blood Pressure Location Lt brachial Position Sitting Pulse 96 Pulse Source Pulse Oximeter Pulse Oximetry (%) 97 Oxygen Delivery Method Nasal Cannula Oxygen Flow Rate 2 Intake Visit Reasons: COPD Brasswind Instrument Repairer Required: No Allergies sulfamethoxazole [Bactrim] Allergy (Intermediate, Verified 04/25/24 15:01) Rash trimethoprim [Bactrim] Allergy (Intermediate, Verified 04/25/24 15:01) rash Codeine Allergy (Severe, Uncoded 04/25/24 15:01) Rash Erythromycin Allergy (Intermediate, Uncoded 04/25/24 15:01) Rash HPI Comments Details: The patient is a 68-year-old woman with known pulmonary nodules in COPD. She is currently oxygen dependent. She does have a portable oxygen concentrator that she uses with activity. In the meantime she has been using trelegy inhaler with good effect. She did try Daliresp in the past but not tolerated due to GI side effects. She has not had to use any prednisone or had any antibiotics. The patient had a CT scan of the chest done back in September 2018 done at [facility]. Per report he was noted to the nodules were stable. She should have another CT scan in a year's time. I would have to confirm the CT scan findings. She continues to active. She is continue pulmonary rehab at home. 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 Otherwise she is without any other complaints period. 07/03/2022 the patient is here for a pulmonary follow-up visit. She continues to slowly improve. She is not her baseline although she states that she may have a new baseline. She continues on the prednisone 7.5 mg daily and she seems to be tolerating that okay. Will continue with current dose at this time. She continues with a noninvasive ventilator at nighttime. It seems that she is tolerating it better. Today she did have an ABG demonstrating normal acid-base status. Her CO2 to issues slightly elevated from baseline therefore, seems to be responding well to her noninvasive ventilator. Her PaO2 was also reassuring even on the oxygen she is taking right now through her pulse device. Sometimes she gets very anxious and starts hyperventilating. She understands that this will cause worsening air trapping and therefore harder time breathing. We did talk about certain techniques that she can use at that time. Including using a straw technique and purse lip breathing. she can also use the noninvasive ventilator during the daytime. She is using CBD and seems to be helping her. At time she does use lorazepam. She needs to be care for the respiratory drive. We again talked about lung volume reduction interventions. Based on her previous PFTs her FEV1 is significantly low and her diffusing capacity as well. She will need to get repeat PFTs to see if she is a candidate or not. In addition, the patient is not responding well to the Yupelri. I did provide [facility] with some samples of DuoNeb she can use that 3 times a day in addition to continuing the prednisone. 12/18/2022 the patient is here for a pulmonary follow-up visit. The patient is complaining of worsening dyspnea. The patient also already on oxygen. She has been having worsening chest tightness shortness of breath. Moderate to severe. She went up on her prednisone to 40 mg ended a taper but did not see any significant improvement. She has not been using the nebulizer often because it makes her shaky with tremors and is uncomfortable. She does continue to use the Trelegy inhaler and is also using the noninvasive ventilator at nighttime. She has significant chest tightness and a prolonged expiratory phase. The patient needs to start using her nebulizer more often. I did have Xopenex available and did provide her in order for her to use it twice a day at least to help with her significant bronchoconstriction. The patient will also undergo blood work. Recently she was given additional diuresis. She was having lower extremity edema. My suspicion is that she has cor pulmonale due to her advanced pulmonary disease. The patient will have blood work including a venous gas. And venous gas her CO2 was slightly elevated more than before. Therefore, Saul will be going by her house and will try to adjust her minute ventilation. 03/19/2023 the patient is here for a pulmonary follow-up visit. She feels like she is getting worse. She is getting very deconditioned. She is been very sedentary because of the shortness of breath. When she leaves the house she typically uses a wheelchair. She did come in sometime in January because of worsening symptoms. We did do an ABG blood gas which is reassuring and the rest of the blood work as well. She had a chest x-ray without any significant changes. Subsequently after that she was eating sometimes just yesterday and she showed on her piece of food and she started coughing to try to expectorate it. After about half an hour she finally got it out but then started developing severe left-sided chest discomfort. It is reproducible was uncomfortable right below her breast. Hard to take a deep breath in. I believe she fractured a rib. She thinks it is more musculoskeletal. The patient also had a chest x-ray in January demonstrating slight opacity over the left hemithorax. She also had a CT scan from May 2022 demonstrating underlying pulmonary nodules. Therefore will go ahead and request a repeat CT scan to address the abnormal chest x-ray and chest discomfort in the nodules. She will continue with the current respiratory therapy. She did respond well to Xopenex so therefore I will send the Xopenex the pharmacy. Also to note, she is using her noninvasive ventilator. The therapy has been affecting beneficial. Although she tends use it around 10 hours at nighttime. She has a deep amount of sleep but she does use it. I did encourage her to consider using it during the daytime 1-2 hours before lunch and 1-2 hours before dinner. Also would recommend she cut down the hours that she uses it at nighttime. The patient also will be evaluated by her [employer] and will be instructed on how to use the sip and puff device part of the astral. I am hopeful that she could continue getting a improvement of her work of breathing by using the noninvasive during the daytime. 05/07/2023 the patient is here for a pulmonary follow-up visit. The patient just recovered from COVID-19. She has had a bad bout of medical issues with significant deconditioning. She cannot perform any activities of daily living in the house and has been has been doing most of it. However, he also had severe COVID ended up in the hospital with all the complications and he is healing himself. The patient is at this point homebound. Only lease for her appointments. Even that is very difficult for her. Will go ahead and start her with VNA services and physical therapy. Respiratory therapy as well. I am hopeful that we can get a little stronger. We did talk briefly about lung transplant evaluation although the patient is reluctant still. In addition to that we did talk about the lung volume reduction interventions such as with [address] valves. This is something she will consider only if she felt stronger. Therefore we will try to provide physical therapy and strengthening and then reassess in the springtime when she returns she continues use our respiratory therapy. She also continues the oxygen. At nighttime she is using her noninvasive ventilator. All these therapies have been affecting beneficial issues that her condition is progressing. 11/19/2023 the patient has a telehealth visit today. She has finally feeling a little better. On recovering from severe COVID. Also with severe COPD. has difficult time with her activities of daily living. She does have assistance with her family. She does have the ventilator that she uses with good effect. Been affecting beneficial. She will continue to use it every night and also as needed. She does have increased work of breathing however. We did look at her medications she is already maximizing her respiratory therapy. She did try decreasing the prednisone but she could not therefore she continued anything 0.5 mg which is reasonable. She is agreeable to try now modafinil stimulant to see if we can help her respiratory drive. The patient will watch for any adverse effects. Will keep her on a low dose of 100 mg. any questions or concerns with the medications. Call will follow-up in 3-4 months or sooner if needed. 03/01/2024 the patient has a telehealth visit today. She was recently hospitalized at [facility] with a severe infection listeria after she a contaminated poor said daily. The patient did have elevated temperatures up to 105. She also had renal failure and almost needed dialysis. She can about 45 lb worse of fluid. However she was able to improve. She was subsequently discharged to a [facility] now she made it home. Because she became so weak she was not able to use her inhalers. She was switched over to nebulized solution. She has not been able to tolerate the budesonide because it caused her to be tremulous. She does tolerate the formoterol and also been on Xopenex. The patient also needs to be on a long-acting muscarinic antagonist and will go ahead and just simplify her respiratory regimen. The patient also has been on 10 mg of prednisone which will continue for now. The patient also has been using the noninvasive ventilator. The noninvasive ventilator she was using more regularly. However, since she just got back from the hospital she is not back in the routine. I did recommend she start using it as is going to help her with the work of breathing and make sure that is CO2 stays within normal. The patient will go ahead and start the long-acting muscarinic antagonist via the nebulizer will continue with the long-acting beta agonist and will use the Xopenex as needed. Will go ahead and make an appointment so for sometime in April where she can get blood gas x-ray in additional blood work as needed. 04/25/2024 the patient is here for hospital follow-up visit. She had been hospitalized with listeria sepsis. She developed significant renal failure with significant anasarca. She was now is personally 6 weeks. Spine the hospital she was also found to have acute on chronic hypercarbic respiratory failure requiring BiPAP. Her CO2 did improve. Subsequently she went to rehab and now she is home. She is still weak. She still has a hard time doing her activities of daily living. But overall better. Kidney function is normalized. The patient has not been able to use her noninvasive ventilator that she can not seem to tolerate it now. She does try to use it during the daytime as needed. In addition to that the nebulized therapy causes her significant tremulousness. The Trelegy inhaler has been affecting beneficial. She will continue to use that. Although 200 mcg dose makes it feel little jittery. Will plan to decrease her down to the 100 mcg dose when possible. She is also on prednisone. She takes 10 mg daily. She had been on 7.5 to try to go down further. She is also feeling nauseous. She is not sure if is the Trelegy the 200 mcg dose of her something else. She can try some Zofran as needed for the nausea symptoms. Will going to have her go undergo blood work to assess her eosinophil count to see she is a candidate for Dupixent. Also because of her significant COPD I do believe she is a good candidate for Ohtuvayre nebulized therapy. [facility] Medical History Acute and chronic respiratory failure Chronic respiratory failure Chronic respiratory failure Chronic rhinitis COPD (chronic obstructive pulmonary disease) Pulmonary nodules Social History Patient Tobacco Use Status: Former Tobacco user Tobacco use type: Cigarette Years Smoked: 40 years Review of Systems Const Reports fatigue, Denies night sweats and Reports weight loss ENT Denies change in voice, Denies lip swelling, Denies mouth pain, Reports nasal congestion, Reports nasal discharge and Denies tongue swelling Card Denies chest pain, Reports dyspnea and Reports dyspnea on exertion Resp Denies chest congestion, Reports cough, Reports dyspnea, Reports dyspnea on exertion and Reports wheezing GI Denies abdominal pain Musc Denies no additional complaints Neuro Denies Neuro-related abnormal movements Psych Denies no additional complaints and Reports anxiety Endo Reports fatigue Juan/Lymph Denies easy bleeding and Denies lymphadenopathy Aller/Immun Denies lip swelling, Denies tongue swelling and Reports wheezing Physical Exam Vital Signs: Last Vital Signs Pulse 96 04/25/24 14:57 BP 108/52 L 04/25/24 14:57 Pulse Ox 97 04/25/24 14:57 Oxygen Delivery Method Nasal Cannula 04/25/24 14:57 Oxygen Flow Rate 2 04/25/24 14:57 Const General: comfortable and alert Orientation/consciousness: patient oriented x3 HEENT Head: Yes normocephalic Neck Neck: Yes supple Chest Chest palpation & inspection: normal inspection of the chest Resp Effort & Inspection: normal respiratory effort and prolonged expiratory phase Auscultation: no wheezes and diminished lung sounds Cardio Rate: regular rate Rhythm: regular rhythm Heart sounds: S1 normal heart sound present and S2 normal heart sound present GI Auscultation: normal bowel sounds Skin General skin exam: no rashes or lesions noted Neuro General: patient oriented x3 Extrem General: No cyanosis Assessment & Plan Assessment & Plan (1) COPD (chronic obstructive pulmonary disease): Code(s): J44.9 - Chronic obstructive pulmonary disease, unspecified Category: Medical Qualifiers: COPD type: COPD with acute exacerbation Qualified Code(s): J44.1 - Chronic obstructive pulmonary disease with (acute) exacerbation (2) Chronic respiratory failure: Code(s): J96.10 - Chronic respiratory failure, unspecified whether with hypoxia or hypercapnia Category: Medical Qualifiers: Respiratory failure complication: hypoxia and hypercapnia Qualified Code(s): J96.11 - Chronic respiratory failure with hypoxia; J96.12 - Chronic respiratory failure with hypercapnia (3) Chronic rhinitis: Comment: 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 Provided an N30i mask, check blood gas F/U 4 months Orders: Orders Basic Metabolic Panel Today J44.1 - Chronic obstructive pulmonary disease with (acute) exacerbation, J96.11 - Chronic respiratory failure with hypoxia, J96.12 - Chronic respiratory failure with hypercapnia Immunoglobulin E Today J44.1 - Chronic obstructive pulmonary disease with (acute) exacerbation, J96.11 - Chronic respiratory failure with hypoxia, J96.12 - Chronic respiratory failure with hypercapnia Immunoglobulin G Subclasses Today J44.1 - Chronic obstructive pulmonary disease with (acute) exacerbation, J96.11 - Chronic respiratory failure with hypoxia, J96.12 - Chronic respiratory failure with hypercapnia Erythrocyte Sedimentation Rate Today J44.1 - Chronic obstructive pulmonary disease with (acute) exacerbation, J96.11 - Chronic respiratory failure with hypoxia, J96.12 - Chronic respiratory failure with hypercapnia Venous Blood Gas Today J44.1 - Chronic obstructive pulmonary disease with (acute) exacerbation, J96.11 - Chronic respiratory failure with hypoxia, J96.12 - Chronic respiratory failure with hypercapnia Complete Blood Count Auto Diff Today J44.1 - Chronic obstructive pulmonary disease with (acute) exacerbation, J96.11 - Chronic respiratory failure with hypoxia, J96.12 - Chronic respiratory failure with hypercapnia Medications: New ondansetron 4 mg PO Q8H PRN 30 tabs 0RF nausea and vomiting 10 days Coding Level of Care Code Est Pt Level 4 (04582) Complex EM visit Add On G2211 Diagnoses Chronic obstructive pulmonary disease with acute exacerbation J44.1 COPD type: COPD with acute exacerbation Chronic respiratory failure with hypoxia and hypercapnia J96.11; J96.12 Respiratory failure complication: hypoxia and hypercapnia Chronic rhinitis J31.0 Pulmonary nodules R91.8 Time Spent (min) 18
== END 2024-04-25 15:38 | disposition home or self-care (01) ==
PROVIDERS: PCP Student in an Organized Health Care Education/Training Program; Visit Provider Hospitalist
DX: J44.1 Chronic obstructive pulmonary disease with (acute) exacerbation (principal); J96.11 Chronic respiratory failure with hypoxia; J96.12 Chronic respiratory failure with hypercapnia; J31.0 Chronic rhinitis; R91.8 Other nonspecific abnormal finding of lung field
CPT/HCPCS: 99214; G2211

== ENCOUNTER 2025-04-20 15:36 | Outpatient (AMB) | payer MEDICARE, SELFPAY ==
--- NOTE | 2025-04-20 15:35 | A.OFFVIS_ITS ---
Intake Visit Reasons: 1yr F/U (telephone visit) Trimming Assembler Required: No Accompanied by: Self / Same As Patient Allergies sulfamethoxazole (Bactrim) Allergy (Intermediate, Verified 04/20/25 15:48) Rash trimethoprim (Bactrim) Allergy (Intermediate, Verified 04/20/25 15:48) rash Codeine Allergy (Severe, Uncoded 04/25/24 15:01) Rash Erythromycin Allergy (Intermediate, Uncoded 04/25/24 15:01) Rash HPI Comments Details: The patient is a 69-year-old woman with known pulmonary nodules in COPD. She is currently oxygen dependent. She does have a portable oxygen concentrator that she uses with activity. In the meantime she has been using trelegy inhaler with good effect. She did try Daliresp in the past but not tolerated due to GI side effects. She has not had to use any prednisone or had any antibiotics. The patient had a CT scan of the chest done back in September 2018 done at [facility]. Per report he was noted to the nodules were stable. She should have another CT scan in a year's time. I would have to confirm the CT scan findings. She continues to active. She is continue pulmonary rehab at home. 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 Otherwise she is without any other complaints period. 07/03/2022 the patient is here for a pulmonary follow-up visit. She continues to slowly improve. She is not her baseline although she states that she may have a new baseline. She continues on the prednisone 7.5 mg daily and she seems to be tolerating that okay. Will continue with current dose at this time. She continues with a noninvasive ventilator at nighttime. It seems that she is tolerating it better. Today she did have an ABG demonstrating normal acid-base status. Her CO2 to issues slightly elevated from baseline therefore, seems to be responding well to her noninvasive ventilator. Her PaO2 was also reassuring even on the oxygen she is taking right now through her pulse device. Sometimes she gets very anxious and starts hyperventilating. She understands that this will cause worsening air trapping and therefore harder time breathing. We did talk about certain techniques that she can use at that time. Including using a straw technique and purse lip breathing. she can also use the noninvasive ventilator during the daytime. She is using CBD and seems to be helping her. At time she does use lorazepam. She needs to be care for the respiratory drive. We again talked about lung volume reduction interventions. Based on her previous PFTs her FEV1 is significantly low and her diffusing capacity as well. She will need to get repeat PFTs to see if she is a candidate or not. In addition, the patient is not responding well to the Yupelri. I did provide since with some samples of DuoNeb she can use that 3 times a day in addition to continuing the prednisone. 12/18/2022 the patient is here for a pulmonary follow-up visit. The patient is complaining of worsening dyspnea. The patient also already on oxygen. She has been having worsening chest tightness shortness of breath. Moderate to severe. She went up on her prednisone to 40 mg ended a taper but did not see any significant improvement. She has not been using the nebulizer often because it makes her shaky with tremors and is uncomfortable. She does continue to use the Trelegy inhaler and is also using the noninvasive ventilator at nighttime. She has significant chest tightness and a prolonged expiratory phase. The patient needs to start using her nebulizer more often. I did have Xopenex available and did provide her in order for her to use it twice a day at least to help with her significant bronchoconstriction. The patient will also undergo blood work. Recently she was given additional diuresis. She was having lower extremity edema. My suspicion is that she has cor pulmonale due to her advanced pulmonary disease. The patient will have blood work including a venous gas. And venous gas her CO2 was slightly elevated more than before. Therefore, Saul will be going by her house and will try to adjust her minute ventilation. 03/19/2023 the patient is here for a pulmonary follow-up visit. She feels like she is getting worse. She is getting very deconditioned. She is been very sedentary because of the shortness of breath. When she leaves the house she typically uses a wheelchair. She did come in sometime in January because of worsening symptoms. We did do an ABG blood gas which is reassuring and the rest of the blood work as well. She had a chest x-ray without any significant changes. Subsequently after that she was eating sometimes just yesterday and she showed on her piece of food and she started coughing to try to expectorate it. After about half an hour she finally got it out but then started developing severe left-sided chest discomfort. It is reproducible was uncomfortable right below her breast. Hard to take a deep breath in. I believe she fractured a rib. She thinks it is more musculoskeletal. The patient also had a chest x-ray in January demonstrating slight opacity over the left hemithorax. She also had a CT scan from May 2022 demonstrating underlying pulmonary nodules. Therefore will go ahead and request a repeat CT scan to address the abnormal chest x-ray and chest discomfort in the nodules. She will continue with the current respiratory therapy. She did respond well to Xopenex so therefore I will send the Xopenex the pharmacy. Also to note, she is using her noninvasive ventilator. The therapy has been affecting beneficial. Although she tends use it around 10 hours at nighttime. She has a deep amount of sleep but she does use it. I did encourage her to consider using it during the daytime 1-2 hours before lunch and 1-2 hours before dinner. Also would recommend she cut down the hours that she uses it at nighttime. The patient also will be evaluated by her [employer] and will be instructed on how to use the sip and puff device part of the astral. I am hopeful that she could continue getting a improvement of her work of breathing by using the noninvasive during the daytime. 05/07/2023 the patient is here for a pulmonary follow-up visit. The patient just recovered from COVID-19. She has had a bad bout of medical issues with significant deconditioning. She cannot perform any activities of daily living in the house and has been has been doing most of it. However, he also had severe COVID ended up in the hospital with all the complications and he is healing himself. The patient is at this point homebound. Only lease for her appointments. Even that is very difficult for her. Will go ahead and start her with VNA services and physical therapy. Respiratory therapy as well. I am hopeful that we can get a little stronger. We did talk briefly about lung transplant evaluation although the patient is reluctant still. In addition to that we did talk about the lung volume reduction interventions such as with [address] valves. This is something she will consider only if she felt stronger. Therefore we will try to provide physical therapy and strengthening and then reassess in the springtime when she returns she continues use our respiratory therapy. She also continues the oxygen. At nighttime she is using her noninvasive ventilator. All these therapies have been affecting beneficial issues that her condition is progressing. 11/19/2023 the patient has a telehealth visit today. She has finally feeling a little better. On recovering from severe COVID. Also with severe COPD. has difficult time with her activities of daily living. She does have assistance with her family. She does have the ventilator that she uses with good effect. Been affecting beneficial. She will continue to use it every night and also as needed. She does have increased work of breathing however. We did look at her medications she is already maximizing her respiratory therapy. She did try decreasing the prednisone but she could not therefore she continued anything 0.5 mg which is reasonable. She is agreeable to try now modafinil stimulant to see if we can help her respiratory drive. The patient will watch for any adverse effects. Will keep her on a low dose of 100 mg. any questions or concerns with the medications. Call will follow-up in 3-4 months or sooner if needed. 03/01/2024 the patient has a telehealth visit today. She was recently hospitalized at [facility] with a severe infection listeria after she a contaminated poor said daily. The patient did have elevated temperatures up to 105. She also had renal failure and almost needed dialysis. She can about 45 lb worse of fluid. However she was able to improve. She was subsequently discharged to a prison now she made it home. Because she became so weak she was not able to use her inhalers. She was switched over to nebulized solution. She has not been able to tolerate the budesonide because it caused her to be tremulous. She does tolerate the formoterol and also been on Xopenex. The patient also needs to be on a long-acting muscarinic antagonist and will go ahead and just simplify her respiratory regimen. The patient also has been on 10 mg of prednisone which will continue for now. The patient also has been using the noninvasive ventilator. The noninvasive ventilator she was using more regularly. However, since she just got back from the hospital she is not back in the routine. I did recommend she start using it as is going to help her with the work of breathing and make sure that is CO2 stays within normal. The patient will go ahead and start the long-acting muscarinic antagonist via the nebulizer will continue with the long-acting beta agonist and will use the Xopenex as needed. Will go ahead and make an appointment so for sometime in April where she can get blood gas x-ray in additional blood work as needed. 04/25/2024 the patient is here for hospital follow-up visit. She had been hospitalized with listeria sepsis. She developed significant renal failure with significant anasarca. She was now is personally 6 weeks. Spine the hospital she was also found to have acute on chronic hypercarbic respiratory failure requiring BiPAP. Her CO2 did improve. Subsequently she went to rehab and now she is home. She is still weak. She still has a hard time doing her activities of daily living. But overall better. Kidney function is normalized. The patient has not been able to use her noninvasive ventilator that she can not seem to tolerate it now. She does try to use it during the daytime as needed. In addition to that the nebulized therapy causes her significant tremulousness. The Trelegy inhaler has been affecting beneficial. She will continue to use that. Although 200 mcg dose makes it feel little jittery. Will plan to decrease her down to the 100 mcg dose when possible. She is also on prednisone. She takes 10 mg daily. She had been on 7.5 to try to go down further. She is also feeling nauseous. She is not sure if is the Trelegy the 200 mcg dose of her something else. She can try some Zofran as needed for the nausea symptoms. Will going to have her go undergo blood work to assess her eosinophil count to see she is a candidate for Dupixent. Also because of her significant COPD I do believe she is a good candidate for Ohtuvayre nebulized therapy. 04/20/2025 this is a telehealth visit with the patient currently on hospice. The patient is currently bed-bound and can not come to the appointment because of her severe state. She has been having significant weakness and she can only barely go to the commode with assistance. She has been using the oxygen with good effect. The patient also stopped using the prednisone because she did not see any significant help. She also did not see any significant help from the Ohtuvayre she stopped it. We talked about other medications such as theophylline but she would not be able to get blood work because of her bed- bound state. She does not have VNA the drowsy blood at home. Therefore will hold off on that. She is willing to try azithromycin 3 times a week for a month to see if this provides some relief in the meantime. She can continue with the current respiratory therapy. The patient will continue with hospice level of care. If any issues arise she can always call for further recommendations. [facility] Medical History Acute and chronic respiratory failure Chronic respiratory failure Chronic respiratory failure Chronic rhinitis COPD (chronic obstructive pulmonary disease) Pulmonary nodules Social History Patient Tobacco Use Status: Former Tobacco user Tobacco use type: Cigarette Years Smoked: 40 years Review of Systems Const Reports fatigue, Denies night sweats and Reports weight loss ENT Denies change in voice, Denies lip swelling, Denies mouth pain, Reports nasal congestion, Reports nasal discharge and Denies tongue swelling Card Denies chest pain, Reports dyspnea and Reports dyspnea on exertion Resp Denies chest congestion, Reports cough, Reports dyspnea, Reports dyspnea on exertion and Reports wheezing GI Denies abdominal pain Reports difficulty voiding Musc Reports abnormal gait and Reports muscle weakness Neuro Denies Neuro-related abnormal movements and Reports abnormal gait Psych Denies no additional complaints and Reports anxiety Endo Reports fatigue Juan/Lymph Denies easy bleeding and Denies lymphadenopathy Aller/Immun Denies lip swelling, Denies tongue swelling and Reports wheezing Physical Exam Const General: cooperative and awake Orientation/consciousness: patient oriented x3 Resp Effort & Inspection: able to speak in complete sentences Neuro General: patient oriented x3 Assessment & Plan Assessment & Plan (1) COPD (chronic obstructive pulmonary disease): Code(s): J44.9 - Chronic obstructive pulmonary disease, unspecified Category: Medical Qualifiers: COPD type: COPD with acute exacerbation Qualified Code(s): J44.1 - Chronic obstructive pulmonary disease with (acute) exacerbation (2) Chronic respiratory failure: Code(s): J96.10 - Chronic respiratory failure, unspecified whether with hypoxia or hypercapnia Category: Medical Qualifiers: Respiratory failure complication: hypoxia and hypercapnia Qualified Code(s): J96.11 - Chronic respiratory failure with hypoxia; J96.12 - Chronic respiratory failure with hypercapnia (3) Chronic rhinitis: Comment: 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 Code(s): J31.0 - Chronic rhinitis Category: Medical (4) Pulmonary nodules: Code(s): R91.8 - Other nonspecific abnormal finding of lung field Category: Medical Plan contiune Trelegy stopped Budesonide stopped Yupelri daily xopenex as needed stopped Prednisone 10mg daily->7.5mg start Azithromycin MWF x 4 weeks consider theophylline continue PPI use saline gel for her nose Continue oxygen supplementation holding NIV while sleeping and as needed, needs a F30 or F30i mask. Provided an N30i mask, check blood gas F/U 4 months Medications: New azithromycin Take 1 tablet on Thursday/Thursday/Thursday 250 mg PO 3XW 12 tabs 0RF 28 days K21.9 - Gastro-esophageal reflux disease without esophagitis Coding Level of Care Code Tele New Pt Level 4 (30080) Diagnoses Chronic obstructive pulmonary disease with acute exacerbation J44.1 COPD type: COPD with acute exacerbation Chronic respiratory failure with hypoxia and hypercapnia J96.11; J96.12 Respiratory failure complication: hypoxia and hypercapnia Chronic rhinitis J31.0 Pulmonary nodules R91.8 Time Spent (min) 15
--- OUTSIDE RECORDS SUMMARY | 2025-04-20 20:42 | XMS_ITS | Clinical Summary ---
Author Organization [facility] Address [address] [place] [address] Phone Care Team Providers Care [employer] Name Role Phone Zoya Everett MD Primary Care Prov ider Diogenes Sherwood MD Unavailable [phone] Kale Zhong MD Unavailable [phone] Mehnaz Li RN DELIVERY Unavailable Kale Zhong MD Unavailable Génesis Wilkins RN Unavailable [email or web address] [email or web address] Active Allergy Reactions Criticality Noted Date Comments Azathioprine Nausea and/or Vomiting 08/19/2017 Deathly ill Sulfamethoxazole-Trimethop rim Rash Low 08/19/2017 Codeine 08/19/2017 Erythromycin Rash Low 08/19/2017 Medications calcium carbonate-vitam in D3 1,500 mg (600 mg elemental)-800 units TabIndications: Lung nodule seen on imaging study Take 1 tablet by mouth daily. 8 Active ipratropium-alb uterol (DUONEB) 0.5-2.5 mg/3 mL nebulizer solutionIndicat ions:Lung nodule seen on imaging study Take 3 mL by nebulization 4 (four) times a day. 8 Active lisinopril (PRINIVIL,ZESTR IL) 2.5 MG tabletIndicatio ns:Lung nodule seen on imaging study Take 1 tablet (2.5 mg total) by mouth daily. 8 Active omeprazole (PRILOSEC) 40 MG capsuleIndicati ons:Lung nodule seen on imaging study Take 1 capsule (40 mg total) by mouth daily. 8 Active spironolactone (ALDACTONE) 25 MG tabletIndicatio ns:Lung nodule seen on imaging study Take 1 tablet (25 mg total) by mouth daily. 8 Active metoprolol succinate (TOPROL-XL) 50 MG 24 hr tabletIndicatio ns:Lung nodule seen on imaging study Take 1 tablet (50 mg total) by mouth daily. 0 8 Active Active Problems Problem Noted Date Diagnosed Date Chronic obstructive pulmonary disease 08/20/2017 Hypertension 08/20/2017 Lung nodule 08/20/2017 Assessment & Plan (08/20/2017 12:58 PM EDT): Mrs. Viji Hernandez is a 61 year old former smoker who has been referred for evaluation of a left lower lobe pulmonary nodule detected during screening/surveillance. Today, her symptoms are notable for dyspnea upon minimal exertion (requiring 2L O2), frequent aspiration, fatigue related to recent stressors, and recent onset productive cough. I personally reviewed her imaging with thoracic radiology and discussed findings with her. Her scans demonstrate a hypermetabolic 1.2 cm LLL nodule along the major fissure that was not present in 1 year prior. There are also some esophageal imaging abnormalities but these are likely unrelated. She has been referred for endoscopy by her PCP. Today, she denies dysphagia, new hoarseness, food impaction, or odynophagia, but she does report aspiration. Overall, imaging findings are concerning for localized lung cancer, but it is possible that this represents inflammation or infection, particularly since the abnormality was only visualized at a single timepoint. We have recommended a short interval scan in 1.5 months to monitor for evaluation. I discussed with her that standard management of localized lung cancer is surgical resection if feasible or SBRT if surgery is not feasible, both of which are done with curative intent. Mrs. Hernandez has a history of severe COPD and requires intermittent oxygen. I suspect that her lung function may limit surgical intervention. She is meeting with thoracic surgery and radiation oncology today. While it would be ideal to get a biopsy prior to any treatment, the location would increase chance of complications. As such, it may be prudent to proceed in the future without tissue confirmation. With respect to systemic treatment options, there is no role for adjuvant chemotherapy for small localized lung cancers without surekha involvement (presumed) or role for chemo after SBRT. Recommendation: -Repeat CT chest in 4-6 weeks. If findings remain concerning, then I think SBRT may be the most optimal approach pending radiation oncology evaluation. -EGD will be arranged by her PCP. Family History Relation Status Comments Father Alive Mother Alive Social History Tobacco Use Types Packs/Day Years Used Date Smoking Tobacco: Former Cigarettes 0.8 40 1 973 - 2012 Smokeless Tobacco: Never Alcohol Use Standard Drinks/Week Comments Yes 0 (1 standard drink = 0.6 oz pure alcohol) 1 glass of wine or one whiskey/georgina meghana per night Education Answer Date Recorded Are you interested in more education? Not on pete e 09/26/2022 Are you concerned about learning? Not on file 09/26/2022 No 09/26/2022 No 09/26/2022 Digital Access Answer Date Recorded No 10/25/2022 No 10/25/2022 No 10/25/2022 Reliable internet access at home? Not on file 10/25/2022 Device with a working camera? Not on file Comments Unknown Sex and Gender Information Value Date Recorded Sex Assigned at Not on file Legal Sex Female 9:30 AM EST Gender Identity Not on file Sexual Orientation Not on file Last Filed Vital Signs Vital Sign Reading Time Taken Comments Blood Pressure 135/83 01/10/2019 10:07 AM EDT Pulse 76 01/10/2019 10:07 AM EDT Temperature 36.2 C (97.1 F) 02/09/2018 12:40 PM EDT Respiratory Rate 18 02/09/2018 12:40 PM EDT Oxygen Saturation 96% 01/10/2019 10:07 AM EDT Inhaled Oxygen Concentration - - Weight 67.1 kg (148 lb) 03/25/2021 5:15 PM EDT Height 162.6 cm (5' 4 ) 03/25/2021 5:15 PM EDT Body Mass Index 25.4 03/25/2021 5:15 PM EDT Plan of Treatment Health Maintenance Due Date Last Done Comments BLOOD PRESSURE 1955 LIPID PANEL 1953 POTASSIUM LEVEL 1953 DEPRESSION SCREENING 1965 SMOKING Hx and SMOKELESS TOBACCO SCREENING 1966 HEPATITIS C SCREENING 11/30/1971 COLOGUARD 1998 COLONOSCOPY 1998 COLORECTAL CANCER SCREENING 1998 FIT TEST 1998 FOBT 1998 SIGMOIDOSCOPY 1998 VIRTUAL COLONOSCOPY 1998 RSV VACCINE (1 - Risk 50-74 years 1-dose series) 11/30/2003 MAMMOGRAM 09/03/2018 09/03/2016 OSTEOPOROSIS SCREENING INITIAL (ONE-TIME) 2018 CREATININE LEVEL 02/09/2019 02/09/2018 PNEUMOCOCCAL VACCINES (50+ years) (2 of 2 - PCV) 04/03/2022 04/03/2021, 04/06/2009 INFLUENZA VACCINE (#1) 2024 , 03/23/2020, 03/16/2019, Additional history exists COVID-19 VACCINE ( season) 2025 02/25/2021, 08/08/2020, 07/19/2020 Adult Td,Tdap Booster 02/03/2030 02/04/2020, 008 ZOSTER VACCINES Completed 01/01/2019, 07/2018, 07/08/2018, Additional history exists HEPATITIS A VACCINES Aged Out No long er eligible based on patient's age to complete this topic HIB VACCINES Aged Out No longer eligi ble based on patient's age to complete this topic MENINGOCOCCAL VACCINES (ACWY) Aged Out No longer eligible based on patient's age to complete this topic MENINGOCOCCAL VACCINES (B) Aged Out N o longer eligible based on patient's age to complete this topic Medical Devices Not on file Procedures Procedure Name Priority Date/Time Associated Diagnosis Comments POCT CREATININE/EGFR Routine 02/09/2018 11:42 AM EDT from Last 3 Months or Most Recently Relevant to Health Maintenance Results * (ABNORMAL) POCT Creatinine/eGFR (02/09/2018 11:42 AM EDT) Creatinine 1.00 0.60 - 1.50 mg/dl [facility] EGFR 59(L) >59 mL/min/1.7 3m2 [facility] Comment:If patient is black, multiply result by 1.159. Estimated glomerular filtration rate calculated using the CKD-EPI equation. 02/09/2018 11:4 2 AM EDT 02/09/2018 11:44 AM EDT us Kale Zhong MD POINT OF CARE TEST ORDERABLES Final Result [facility] [address] [place] [address] from Last 3 Months or Most Recently Relevant to Health Maintenance Insurance MEDICARE PART A & B [employer] SUPPLEMENT MEDICARE PART A & B [employer] MEDEX SUPPLEMENT MEDICARE PART A & B [employer] MEDEX SUPPLEMENT MEDICARE PART A & B [employer] MEDEX SUPPLEMENT MEDICARE PART A & B [employer] MEDEX SUPPLEMENT MEDICARE PART A & B [employer] MEDEX SUPPLEMENT MEDICARE PART A & B [employer] MEDEX SUPPLEMENT MEDICARE PART A & B [employer] MEDEX SUPPLEMENT MEDICARE PART A & B [employer] MEDEX SUPPLEMENT MEDICARE PART A & B [employer] MEDEX SUPPLEMENT Care Teams [employer] Vol[employer] Relationship Specialty Start Date End Date Zoya Everett MD [address] [place] [address] PCP - General Internal Medicine 08/06/17 Diogenes Sherwood MD [address] [place] [address] [email or web address] Primary Oncologist Medical Oncology 08/25/17 Kale Zhong MD [address] [address] [email or web address] Consulting Provider Radiation Oncology 08/27/17 Mehnaz Li CNP [address] [place] [id number] [email or web address] Nurse Practitioner Radiation Oncology 10/20/17 Kale Zhong MD [address] [id number] [email or web address] Radiation Oncology 09/29/18 Génesis Wilkins, LUIZA [address] [place] [address] [email or web address] Registered Nurse 03/04/21 Additional Source Comments The information contained in this document represents components of the legal health record. It is not the complete legal health record.[facility]
--- OUTSIDE RECORDS SUMMARY | 2025-04-20 20:42 | XMS_ITS | Clinical Summary ---
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 Name Role Phone Mariam Youssef MD Primary Care Provider Social History Tobacco Use Types Packs/Day Years Used Date Smoking Tobacco: Never Assessed Comments Unknown Sex and Gender Information Value Date Recorded Sex Assigned at Not on file Legal Sex Female 11:17 AM EDT Gender Identity Not on file Sexual Orientation Not on file Plan of Treatment Health Maintenance Due Date Last Done Comments Breast Cancer Screening 1955 Colorectal Cancer Screening: Annual FOBT 2002 Colorectal Cancer Screening: Colonoscopy 2002 Colorectal Cancer Screening: Sigmoidoscopy 2002 Pneumococcal Vaccine: 50+ Years (2 of 2 - PCV) 04/03/2022 04/03/2021, 04/06/2009 Influenza Vaccine (#1) 2025 3, 03/16/2019, 02/06/2018, Additional history exists Hepatitis B Vaccine Aged Out No longe r eligible based on patient's age to complete this topic Insurance Medicare [facility] Care 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
--- OUTSIDE RECORDS SUMMARY | 2025-04-20 20:43 | XMS_ITS | Data Portability ---
Author Organization [facility], Main Office Address [address] [place] [address] Care Team Providers Care Legal Operations Manager Name Role Phone DALIA BEST Earth Auger Operator ERENDIRA POMPA Prop Attendant MARIAM YOUSSEF Primary Care Provider Assessment Encounter Date Assessment Date Assessment LastModified by Organization Details LastModified Time 02/05/2024 02/05/2024 This service was provided using telemedicine. Patient consented to telephone visit Patient was located in the [facility]. Provider was located in the office. No other persons participated in the telemedicine visit except for the patient unless otherwise indicated here. Total time of visit was 20 minutes. Not available 02/05/2024 14:42:07 05/13/2024 05/13/2024 This service was provided using telemedicine. Patient consented to video & audio visit Patient was located in the [facility]. Provider was located in the office. No other persons participated in the telemedicine visit except for the patient unless otherwise indicated here. Total time of visit was 20 minutes. Not available 05/14/2024 11:15:33 06/16/2024 06/16/2024 This service was provided using telemedicine. Patient consented to telephone visit Patient was located in the [facility]. Provider was located in the office. No other persons participated in the telemedicine visit except for the patient unless otherwise indicated here. Total time of visit was 30 minutes. PLEASE NOTE: It is really hard for patient to leave the house due to worsening COPD. Therefore, patient will do stool test and repeat blood work when she can. Will try to get services to her house. Not available 06/16/2024 13:18:52 01/02/2025 01/02/2025 Patient is at lo w risk for cardiopulmonary complications with planned procedure based on comorbidities, good exertional tolerance and overall procedure risk. Patient advised to avoid aspirin for 14 days and NSAIDS for 7 days prior. May proceed to scheduled surgery as planned. [email or web address] Not available 01/02/2025 13:16:00 Plan of Treatment Reminders Order Date Submit Date Provider Last Modified By Organization Details Last Modified Time Details Appointments None recorde d. Lab basic metabol ic 1998 panel, serum or plasma 2024 025 XIN [facility] (Centralized Electronic Ordering - All Locations), Patient Can Go To The Location Of Their Choice, [address] 10:05:57 BMP, serum or plasma 2024 025 XIN [facility] (Centralized Electronic Ordering - All Locations), Patient Can Go To The Location Of Their Choice, [address] 11:48:10 c diff toxin genes, qual, PCR, stool 2024 025 XIN [facility] (Centralized Electronic Ordering - All Locations), Patient Can Go To The Location Of Their Choice, [address] 10:05:56 ferriti n, serum or plasma 2024 025 [facility], [address] [place], [address], 09:48:07 retic count, blood 2024 025 [facility], [address] [place], [address], 09:48:08 CBC w/ auto diff 2024 025 [facility], [address], [place], [address], 5 10:19:53 TIBC (total iron-bi nding capacit y), serum 2024 025 [facility], [address], [place], [address], 5 10:19:53 PTH (parath yroid hormone ), intact, serum or plasma 2023 024 XIN [facility] (Centralized Electronic Ordering - All Locations), Patient Can Go To The Location Of Their Choice, [address] 4 16:06:58 vitamin D, 25-hydr oxy, total, serum 2023 024 XIN [facility] (Centralized Electronic Ordering - All Locations), Patient Can Go To The Location Of Their Choice, [address] 4 16:06:57 CBC w/ auto diff 2023 024 XIN [facility] (Centralized Electronic Ordering - All Locations), Patient Can Go To The Location Of Their Choice, [address] 16:06:55 BMP, serum or plasma 2023 024 XIN [facility] (Centralized Electronic Ordering - All Locations), Patient Can Go To The Location Of Their Choice, [address] 4 16:06:57 Referral hospice & palliat loki medicin e referra l 2024 025 [facility], [address], [facility] [address], [place], [address], 11:29:21 Procedures None recorde d. Surgeries None recorde d. Imaging electro cardiog lynne 2024 025 [email or web address] In-Office Order, Internal Use Only DO Not Attach Compendium DO Not Attach Compendium, Do Not Delete/merge, [address] 13:27:34 Medication Orders lorazep am 0.5 mg tablet 2024 025 [facility] [place], [place], [address], [place], [address], 13:19:50 lorazep am 0.5 mg tablet 122023 X[facility] - [place], [place], [address] [place], [address], 15:04:54 sertral ine 100 mg tablet 2023 XIN [facility] [place], [address] [place], [address], 12:04:22 lorazep am 0.5 mg tablet 2023 [facility] [place], [address] [place], [address], 12:04:23 Patient TargetsNo targets recorded. Patient Instructions Encounter Date Encounter Id Patient Instructions Last Modified By Organization Details Last Modified Time 02/05/2024 [id number] hypocalcemia: care instructions Not available 02/05/2024 14:48:23 05/13/2024 [id number] chronic obstructive pulmonary disease (COPD): care instructions Not available 05/14/2024 11:19:29 learning about copd and how to prevent lung infections Not available 05/14/2024 11:19:29 heart failure: care instructions Not available 05/14/2024 11:19:29 learning about heart failure Not available 05/14/2024 11:19:29 Reason for Referral Hospice & Palliative Medicin e Referral for Chronic obstructive pulmonary disease Referring Physician: Mariam Youssef, Family Medicine, Encounter Date: 06/16/2024 Results Created Date Observation Date Name Description Value Unit Range Abnormal Flag Note LastModifiedBy Organization Detail LastModifiedTime 02/19/2002/19/2024 CBC WITH DIFFE RENTI AL/PL ATELE T WBC 9.8 x10e3 /uL 3.4-10 .8 normal Not Available [facility] ([facility]) [address] [facility], [place], [address], 02/23/2024 16:06:55 02/19/202024 CBC WITH DIFFE RENTI AL/PL ATELE T RBC 3.37 x10e6 /uL 3.77-5 .28 below low normal Not Available [facility] ([facility]) [address] [place], [address], 02/23/2024 16:06:55 02/19/20 24 02/19/2024 CBC WITH DIFFE RENTI AL/PL ATELE T hemoglobin 10.7 g/dL 11.1-1 5.9 below low normal Not Available [facility] ([facility]) [address] [place], [address], 02/23/2024 16:06:55 02/19/20 24 02/19/2024 CBC WITH DIFFE RENTI AL/PL ATELE T hematocrit 33.9 % 34.0-4 6.6 below low normal Not Available [facility] ([facility]) [address] [place], [address], 02/23/2024 16:06:55 02/19/20 24 02/19/2024 CBC WITH DIFFE RENTI AL/PL ATELE T MCV 101 fL 79-97 above high normal Not Available [facility] ([facility]) [address] [place], [address], 02/23/2024 16:06:55 02/19/20 24 02/19/2024 CBC WITH DIFFE RENTI AL/PL ATELE T MCH 31.8 pg 26.6-3 3.0 normal Not Available [facility] ([facility]) [address] [place], [address], 02/23/2024 16:06:55 02/19/20 24 02/19/2024 CBC WITH DIFFE RENTI AL/PL ATELE T MCHC 31.6 g/dL 31.5-3 5.7 normal Not Available [facility] ([facility]) [address] [place], [address], 02/23/2024 16:06:55 02/19/20 24 02/19/2024 CBC WITH DIFFE RENTI AL/PL ATELE T RDW 13.4 % 11.7-1 5.4 Not Available [facility] ([facility]) [address] [facility], [place], [address], 02/23/2024 16:06:55 02/19/20 24 02/19/2024 CBC WITH DIFFE RENTI AL/PL ATELE T platelets 335 x10e3 /uL 150-45 0 normal Not Available [facility] ([facility]) [address] [facility], [place], [address], 02/23/2024 16:06:55 02/19/20 24 02/19/2024 CBC WITH DIFFE RENTI AL/PL ATELE T neutrophils 73 % not estab. normal Not Available [facility] ([facility]) [address] [facility], [place], [address], 02/23/2024 16:06:55 02/19/20 24 02/19/2024 CBC WITH DIFFE RENTI AL/PL ATELE T lymphs 14 % not estab. normal Not Available [facility] ([facility]) [address] [facility], [place], [address], 02/23/2024 16:06:55 02/19/20 24 02/19/2024 CBC WITH DIFFE RENTI AL/PL ATELE T monocytes 8 % not estab. normal Not Available [facility] ([facility]) [address] [facility], [place], [address], 02/23/2024 16:06:55 02/19/20 24 02/19/2024 CBC WITH DIFFE RENTI AL/PL ATELE T eos 2 % not estab. normal Not Available [facility] ([facility]) [address] [facility], [place], [address], 02/23/2024 16:06:55 02/19/20 24 02/19/2024 CBC WITH DIFFE RENTI AL/PL ATELE T basos 1 % not estab. normal Not Available [facility] ([facility]) [address] [place], [address], 02/23/2024 16:06:55 02/19/20 24 02/19/2024 CBC WITH DIFFE RENTI AL/PL ATELE T immature cells LEGAL ARBITRATOR Not Available [facility] ([facility]) [address] [place], [address], 02/23/2024 16:06:55 02/19/20 24 02/19/2024 CBC WITH DIFFE RENTI AL/PL ATELE T neutrophils (absolute) 7.1 x10e3 /uL 1.4-7. 0 above high normal Not Available [facility] ([facility]) [address] [facility], [place], [address], 02/23/2024 16:06:55 02/19/20 24 02/19/2024 CBC WITH DIFFE RENTI AL/PL ATELE T lymphs (absolute) 1.4 x10e3 /uL 0.7-3. 1 normal Not Available [facility] ([facility]) [address] [place], [address], 02/23/2024 16:06:55 02/19/20 24 02/19/2024 CBC WITH DIFFE RENTI AL/PL ATELE T monocytes(ab solute) 0.8 x10e3 /uL 0.1-0. 9 normal Not Available [facility] ([facility]) [address] [place], [address], 02/23/2024 16:06:55 02/19/20 24 02/19/2024 CBC WITH DIFFE RENTI AL/PL ATELE T eos (absolute) 0.2 x10e3 /uL 0.0-0. 4 normal Not Available [facility] ([facility]) [address] [place], [address], 02/23/2024 16:06:55 02/19/20 24 02/19/2024 CBC WITH DIFFE RENTI AL/PL ATELE T baso (absolute) 0.1 x10e3 /uL 0.0-0. 2 normal Not Available [facility] ([facility]) [address] [facility], [place], [address], 02/23/2024 16:06:55 02/19/20 24 02/19/2024 CBC WITH DIFFE RENTI AL/PL ATELE T immature granulocytes 2 % not estab. Not Available [facility] ([facility]) [address] [facility], [place], [address], 02/23/2024 16:06:55 02/19/20 24 02/19/2024 CBC WITH DIFFE RENTI AL/PL ATELE T immature grans (abs) 0.2 x10e3 /uL 0.0-0. 1 above high normal (An eleva yeimi perce ntage of Immat ure Granu locyt es has not been found to be clini florence signi fican t as a sole clini abisai predi ctor of disea se. Does NOT inclu de bands or blast cells . Pregn marina assoc iated physi ologi abisai leuko cytos is may also show incre ased immat ure granu locyt es witho ut clini abisai signi fican ce.) Not Available [facility] ([facility]) [address] [facility], [place], [address], 02/23/2024 16:06:55 02/19/20 24 02/19/2024 CBC WITH DIFFE RENTI AL/PL ATELE T NRBC LEGAL ARBITRATOR Not Available [facility] ([facility]) [address] [facility], [place], [address], 02/23/2024 16:06:55 02/19/20 24 02/19/2024 CBC WITH DIFFE RENTI AL/PL ATELE T hematology comments: LEGAL ARBITRATOR Not Available [facility] ([facility]) [address] [facility], [place], [address], 02/23/2024 16:06:55 02/19/20 24 02/20/2024 BASIC METAB OLIC PANEL (8) glucose 109 mg/dL 70-99 above high normal Not Available [facility] ([facility]) [address] [place], [address], 02/23/2024 16:06:57 02/19/20 24 02/20/2024 BASIC METAB OLIC PANEL (8) BUN 25 mg/dL 8-27 normal Not Available [facility] ([facility]) [address] [place], [address], 02/23/2024 16:06:57 02/19/20 24 02/20/2024 BASIC METAB OLIC PANEL (8) creatinine 0.98 mg/dL 0.57-1 .00 normal Not Available [facility] ([facility]) [address] [place], [address], 02/23/2024 16:06:57 02/19/20 24 02/20/2024 BASIC METAB OLIC PANEL (8) eGFR 62 mL/mi n/1.7 3 >59 normal Not Available [facility] ([facility]) [address] [place], [address], 02/23/2024 16:06:57 02/19/20 24 02/20/2024 BASIC METAB OLIC PANEL (8) BUN/creatini ne ratio 26 12-28 normal Not Available [facility] ([facility]) [address] [place], [address], 02/23/2024 16:06:57 02/19/20 24 02/20/2024 BASIC METAB OLIC PANEL (8) sodium 144 mmol/ L 134-14 4 normal Not Available [facility] ([facility]) [address] [place], [address], 02/23/2024 16:06:57 02/19/20 24 02/20/2024 BASIC METAB OLIC PANEL (8) potassium 4.2 mmol/ L 3.5-5. 2 normal Not Available [facility] ([facility]) [address] [facility] [place] [place], [address], 02/23/2024 16:06:57 02/19/20 24 02/20/2024 BASIC METAB OLIC PANEL (8) chloride 100 mmol/ L 96-106 normal Not Available [facility] ([facility]) [address] [place] [place], [address], 02/23/2024 16:06:57 02/19/20 24 02/20/2024 BASIC METAB OLIC PANEL (8) carbon dioxide, total 29 mmol/ L 20-29 normal Not Available [facility] ([facility]) [address] [place], [address], 02/23/2024 16:06:57 02/19/20 24 02/20/2024 BASIC METAB OLIC PANEL (8) calcium 9.8 mg/dL 8.7-10 .3 normal Not Available [facility] ([facility]) [address] [facility] [place] [place], [address], 02/23/2024 16:06:57 02/19/20 24 02/20/2024 VITAM IN D, 25-HY DROXY vitamin D, 25-hydroxy 31.2 NG/mL 30.0-1 00.0 Vitam in D defic iency has been defin ed by the Insti tute of Medic ine and an Endoc rine Socie ty pract ice guide line as a level of serum 25-OH vitam in D less than 20 ng/mL (1,2) . The Endoc rine Socie ty went on to furth er defin e vitam in D insuf ficie ncy as a level betwe en 21 and 29 ng/mL (2). 1. IOM (Inst itute of Medic ine). 2010. Dieta ry refer ence intak es for calci um and D. Izaiah quiros [place]: The [facility] . 2. Siddharth aguirre MF, William samuel [place], Neelima off-F errar i ENRIQUE, et al. Evalu ation , treat ment, and preve ntion of vitam in D defic iency : an Endoc rine Socie ty clini abisai pract ice guide line. JCEM. 2010; 96(7) :1911 -30. Not Available [facility] ([facility]) [address] [facility], [place], [address], 02/23/2024 16:06:57 02/19/20 24 02/23/2024 PTH, INTAC T PTH, intact TNP pg/mL Test not perfo rmed. No plasm a speci men recei mohan. Not Available [facility] ([facility]) [address] [place], [address], 02/23/2024 16:06:58 02/19/20 24 02/23/[address] PROBL EM request problem TNP Test not perfo rmed. No plasm a speci men recei mohan. TEST: 32180 0 PTH, Intac t Not Available [facility] ([facility]) [address] [place], [address], 02/23/2024 16:06:58 02/19/20 24 02/29/2024 IRON AND TIBC iron bind.cap.(TI BC) 320 ug/dL 250-45 0 normal Not Available [facility] ([facility]) [address] [place], [address], 02/29/2024 22:05:51 02/19/20 24 02/29/2024 IRON AND TIBC UIBC 246 ug/dL 118-36 9 normal Not Available [facility] ([facility]) [address] [place], [address], 02/29/2024 22:05:51 02/19/20 24 02/29/2024 IRON AND TIBC iron 74 ug/dL 27-139 normal Not Available [facility] ([facility]) [address] [place], [address], 02/29/2024 22:05:51 02/19/20 24 02/29/2024 IRON AND TIBC iron saturation 23 % 15-55 normal Not Available [facility] ([facility]) [address] [facility], [place], [address], 02/29/2024 22:05:51 02/19/20 24 02/24/2024 HEMOG LOBIN A1C hemoglobin A1C 5.3 % 4.8-5. 6 normal Predi abete s: 5.7 - 6.4 Diabe elisabeth: >6.4 Glyce littel contr ol for adult s with diabe elisabeth: <7.0 Not Available [facility] ([facility]) [address] [facility], [place], [address], 02/29/2024 22:05:52 02/19/20 24 02/29/2024 EZEQUIEL TIN ferritin 93 NG/mL 15-150 normal Not Available [facility] ([facility]) [address] [facility], [place], [address], 02/29/2024 22:05:52 02/19/20 24 02/24/2024 RICKY EN AUTHO RIZAT ION written authorizatio n Commen t Ricky en Autho rizat ion Recei mohan. Autho rizat ion recei mohan from [employer] Haq for Link Reque st on 02-23 Logge d by Tracey Ramsay Not Available [facility] ([facility]) [address] [facility], [place], [address], 02/29/2024 22:05:53 06/22/19 25 06/23/2024 C DIFFI CILE TOXIN GENE SCOTTY C difficile toxin gene SCOTTY COMMEN T Test not perfo rmed. Speci men recei mohan froze n. Not Available [facility] ([facility]) [address] [place], [address], 06/23/2024 10:05:55 06/22/19 06/23/[address] PROBL EM request problem COMMEN T Test not perfo rmed. Speci men recei mohan froze n. TEST: 32709 8 C diffi cile Toxin Gene SCOTTY Not Available [facility] ([facility]) [address] [place], [address], 06/23/2024 10:05:57 01/03/20 25 01/03/2025 BASIC METAB OLIC PANEL (7) glucose 115 mg/dL 70-99 above high normal Not Available [facility] ([facility]) [address] [place], [address], 01/03/2025 10:05:57 01/03/20 25 01/03/2025 BASIC METAB OLIC PANEL (7) BUN 33 mg/dL 8-27 above high normal Not Available [facility] ([facility]) [address] [place], [address], 01/03/2025 10:05:57 01/03/20 25 01/03/2025 BASIC METAB OLIC PANEL (7) creatinine 0.86 mg/dL 0.57-1 .00 normal Not Available [facility] ([facility]) [address] [place], [address], 01/03/2025 10:05:57 01/03/20 25 01/03/2025 BASIC METAB OLIC PANEL (7) eGFR 72 mL/mi n/1.7 3 >59 normal Not Available [facility] ([facility]) [address] [place], [address], 01/03/2025 10:05:57 01/03/20 25 01/03/2025 BASIC METAB OLIC PANEL (7) BUN/creatini ne ratio 38 12-28 above high normal Not Available [facility] ([facility]) [address] [place], [address], 01/03/2025 10:05:57 01/03/20 25 01/03/2025 BASIC METAB OLIC PANEL (7) sodium 139 mmol/ L 134-14 4 normal Not Available [facility] ([facility]) [address] [facility], [place], [address], 01/03/2025 10:05:57 01/03/20 25 01/03/2025 BASIC METAB OLIC PANEL (7) potassium 4.9 mmol/ L 3.5-5. 2 normal Not Available [facility] ([facility]) [address] [facility], [place], [address], 01/03/2025 10:05:57 01/03/20 25 01/03/2025 BASIC METAB OLIC PANEL (7) chloride 95 mmol/ L 96-106 below low normal Not Available [facility] ([facility]) [address] [facility], [place], [address], 01/03/2025 10:05:57 01/03/20 25 01/03/2025 BASIC METAB OLIC PANEL (7) carbon dioxide, total 23 mmol/ L 20-29 normal Not Available [facility] ([facility]) [address] [facility], [place], [address], 01/03/2025 10:05:57 06/14/19 25 06/13/2024 , [facility] ardio gram, trans thora cic, limit ed No observ ation record ed. Not Available 06/16 14:03:57 01/03/2001/02/2025 [facility] rocar diogr am No observ ation record ed. [email or web address] In-Office Order Internal Use Only DO Not Attach Compendium DO Not Attach Compendium, Do Not Delete/merge, [id number] 01/02/2025 13:52:07 01/03/20 [facility] rocar diogr am No observ ation record ed. [email or web address] In-Office Order Internal Use Only DO Not Attach Compendium DO Not Attach Compendium, Do Not Delete/merge, [id number] 01/02/2025 13:16:46 Result Notes None recorded. Problems Name Problem SNOMED Code Status Onset Date Resolution Date Notes Provider Name and Address Organization Details Recorded Time Cardiomy opathy 22273878 Active Not Available [facility] 2 20:00:40 Subarach noid hemorrha ge 55143741 Active Not Available [facility] 2 20:00:40 Fracture of rib 51432410 Completed 09/12/2016 Aye dumont [facility] 7 12:50:55 Congesti ve heart failure 58142770 Active Not Available [facility] 2 20:00:40 Anemia 130609086 Active LAST WAS 11.8 NEEDS WORK UP MARIAM YOUSSEF MD [address], [place], [address] , [facility] 3 19:39:16 Gastroes ophageal reflux disease 751687549 Completed 09/12/2016 Abhishek dumont [facility] 7 13:32:34 Eruption 008855072 Completed 04/28/2016 CHERELLE Simeon, [facility] 6 10:51:00 Environm ental allergy 129796433 Completed 09/12/2016 Aye dumont [facility] 7 13:00:34 Conjunct ivitis 8517570 Completed 04/28/2016 CHERELLE Simeon [facility] 6 10:51:09 General examinat ion of patient Completed 200712/13/2013 RESOLVED DATE: 01/27/20 08; IMPRESSI ON: PT GETS MAMMO AT [facility], THEY FOLLOW CALCIFIC ATIONS. COLONOSC OPY 03/06, IT WAS NORMAL.; RECORDED 01/27/20 08 9:20AM BY THERESA PAULINO ON/JASMYNE MANLEY Not Available [facility] 4 15:06:20 General examinat ion of patient Completed 200701/09/2014 RESOLVED DATE: 01/27/20 08; IMPRESSI ON: PT GETS MAMMO AT [facility], THEY FOLLOW CALCIFIC ATIONS. COLONOSC OPY 03/06, IT WAS NORMAL.; RECORDED 01/27/20 08 9:20AM BY THERESA PAULINO ON/ADDEN DUM Not Available [facility] 4 05:41:12 Malaise and fatigue 037055104 Completed 200812/13/2013 RECORDED 06/08/19 09 9:24AM BY THERESA SIMEON ON/ADDEN DUM Aye dumont, [facility] 7 12:50:52 Cough 86637494 Completed 200812/13/2013 IMPRESSI ON: MUCH BETTER ON LEVAQUIN ; RECORDED 10/20/19 09 1:09PM BY TI BENTLEY MA, ANNOTATI ON/ADDEN DUM CHERELLE Simeon, [facility] 7 08:19:17 Eruption [id number] Completed 200812/13/2013 IMPRESSI ON: PRURITIC RASH ON TRUNK, MOST LIKELY VIRAL, FOLLOW COURSE, RESOLVIN G; RECORDED 10/20/19 09 1:09PM BY TI BENTLEY MA, THERESA ON/ADDEN DUM CHERELLE Simeon, [facility] 6 10:51:00 Screenin g for malignan t neoplasm of colon Completed 200812/13/2013 RECORDED 10/20/19 09 1:09PM BY TI BENTLEY MA, THERESA ON/ADDEN DUM Not Available [facility] 4 15:06:22 Eruption [id number] Completed 200801/09/2014 IMPRESSI ON: PRURITIC RASH ON TRUNK, MOST LIKELY VIRAL, FOLLOW COURSE, RESOLVIN G; RECORDED 10/20/19 09 1:09PM BY TI BENTLEY MA, CHICOATI ON/ADDEN DUM CHERELLE Simeon, [facility] 6 10:51:00 Screenin g for malignan t neoplasm of colon Completed 200801/09/2014 RECORDED 10/20/19 09 1:09PM BY TI BENTLEY MA, ANNOTATI ON/ADDEN DUM Not Available [facility] 4 05:41:12 Otitis media 09161217 Completed 200812/13/2013 RECORDED 12/22/19 09 10:07AM BY TI BENTLEY MA, ANNOTATI ON/ADDEN DUM Not Available [facility] 4 15:06:21 Palpitat ions 18333247 Completed 200812/13/2013 IMPRESSI ON: NSR ON EKG, HAD MISSED A FEW DAYS OF TOPROL WHEN ILL, CONTINUE , NL EKG; RECORDED 12/22/19 09 10:07AM BY TI BENTLEY MA, ANNOTATI ON/ADDEN DUM Aye dumont, [facility] 7 12:51:12 Otitis media [id number] Completed 200801/09/2014 RECORDED 12/22/19 09 10:07AM BY TI BENTLEY MA, ANNOTATI ON/ADDEN DUM Not Available [facility] 4 05:41:12 Active or passive immuniza tion Completed 200812/13/2013 RECORDED 04/06/20 09 11:12AM BY ABHISHEK Nolen MD, OFFICE VISIT Not Available [facility] 4 15:06:21 Active or passive immuniza tion Completed 200801/09/2014 RECORDED 04/06/20 09 11:12AM BY ABHISHEK Nolen MD, OFFICE VISIT Not Available [facility] 4 05:41:12 Acute laryngit is 3264449 Completed 201112/13/2013 RECORDED 04/02/20 12 10:44AM BY JASSI PEREZ MA, CHICOATI ON/ADDEN DUM Not Available [facility] 4 15:06:18 Acute sinusiti s 11262724 Completed 201112/13/2013 RECORDED 04/02/20 12 10:44AM BY JASSI PEREZ MA, ANNOTATI ON/ADDEN DUM Not Available [facility] 4 15:06:18 Screenin g for malignan t neoplasm of breast Completed 201112/13/2013 RECORDED 04/02/20 12 10:43AM BY JASSI PEREZ MA, ANNOTATI ON/ADDEN DUM Not Available [facility] 4 15:06:19 Acute bronchit is 80833505 Completed 201112/13/2013 RECORDED 04/02/20 12 10:44AM BY JASSI PEREZ MA, ANNOTATI ON/ADDEN DUM Not Available [facility] 4 15:06:19 Menopaus al symptom 92645650 Completed 201112/13/2013 RECORDED 04/02/20 12 10:44AM BY JASSI PEREZ MA, ANNOTATI ON/ADDEN DUM Not Available [facility] 4 15:06:21 Motion sickness 33064243 Completed 201112/13/2013 RECORDED 04/02/20 12 10:44AM BY JASSI PEREZ MA, ANNOTATI ON/ADDEN DUM Not Available [facility] 4 15:06:21 Tobacco dependen ce syndrome [id number] Completed 201112/13/2013 RECORDED 04/02/20 12 10:44AM BY JASSI PEREZ MA, ANNOTATI ON/ADDEN DUM CHERELLE Simeon MA - [facility] 6 10:51:16 Acute laryngit is [id number] Completed 201101/09/2014 RECORDED 04/02/20 12 10:44AM BY JASSI PEREZ MA, ANNOTATI ON/ADDEN DUM Not Available [facility] 4 05:41:11 Acute sinusiti s 18506609 Completed 201101/09/2014 RECORDED 04/02/20 12 10:44AM BY JASSI PEREZ MA, ANNOTATI ON/ADDEN DUM Not Available [facility] 4 05:41:11 Screenin g for malignan t neoplasm of breast Completed 201101/09/2014 RECORDED 04/02/20 12 10:43AM BY JASSI PEREZ MA, ANNOTATI ON/ADDEN DUM Not Available [facility] 4 05:41:11 Acute bronchit is [id number] Completed 201101/09/2014 RECORDED 04/02/20 12 10:44AM BY JASSI PEREZ MA, ANNOTATI ON/ADDEN DUM Not Available [facility] 4 05:41:11 Menopaus al symptom 50011399 Completed 201101/09/2014 RECORDED 04/02/20 12 10:44AM BY JASSI PEREZ MA, ANNOTATI ON/ADDEN DUM Not Available [facility] 4 05:41:12 Motion sickness 52124083 Completed 201101/09/2014 RECORDED 04/02/20 12 10:44AM BY JASSI PEREZ MA, ANNOTATI ON/ADDEN DUM Not Available [facility] 4 05:41:12 Tobacco dependen ce syndrome [id number] Completed 201101/09/2014 RECORDED 04/02/20 12 10:44AM BY JASSI PEREZ MA, ANNOTATI ON/ADDEN DUM CHERELLE Simeon MA - [facility] 6 10:51:16 Bronchit is [id number] Completed 201112/13/2013 IMPRESSI ON: PT NOT TOLERATI NG AUGMENTI N WITH CLAUDIA SIDE EFFECTS, WILL CHANGE TO LEVAQUIN 500MG ONE A DAY FOR 10 DAYS; RECORDED 05/28/20 12 9:53AM BY THERESA SIMEON ON/ADDEN DUM Not Available [facility] 4 15:06:19 Bronchit is [id number] Completed 201101/09/2014 IMPRESSI ON: PT NOT TOLERATI NG AUGMENTI N WITH CLAUDIA SIDE EFFECTS, WILL CHANGE TO LEVAQUIN 500MG ONE A DAY FOR 10 DAYS; RECORDED 05/28/20 12 9:53AM BY THERESA SIMEON ON/ADDEN DUM Not Available [facility] 4 05:41:11 Screenin g for malignan t neoplasm of cervix Completed 201312/13/2013 RECORDED 06/08/19 14 10:00AM BY THERESA SIMEON ON/ADDEN DUM Not Available [facility] 4 15:06:19 Follow-u p encounte r Completed 201312/13/2013 RECORDED 06/08/19 14 9:59AM BY THERESA SIMEON ON/ADDEN DUM CHERELLE Simeon, [facility] 7 08:19:03 Influenz a vaccine needed [id number] 06 Completed 201312/13/2013 RECORDED 06/08/19 14 10:00AM BY THERESA SIMEON ON/ADDEN DUM CHERELLE Simeon, [facility] 6 10:50:45 Adult health examinat ion Completed 201312/13/2013 IMPRESSI ON: PAP, MAMMO AND COLONOSO CY UTD, IS ACTIVE DOING WELL; RECORDED 06/08/19 14 10:00AM BY THERESA SIMEON ON/ADDEN DUM CHERELLE Simeon, [facility] 6 10:50:54 Well child [id number] Completed 201312/13/2013 RECORDED 06/08/19 14 10:00AM BY THERESA SIMEON ON/ADDEN DUM Not Available [facility] 4 15:06:20 Essentia l hyperten shruti 16989998 Completed 201312/13/2013 RECORDED 06/08/19 14 9:59AM BY THERESA SIMEON ON/ADDEN DUM Not Available [facility] 4 15:06:21 Screenin g for malignan t neoplasm of cervix Completed 201301/09/2014 RECORDED 06/08/19 14 10:00AM BY THERESA SIMEON ON/ADDEN DUM Not Available [facility] 4 05:41:11 Follow-u p encounte r Completed 201301/09/2014 RECORDED 06/08/19 14 9:59AM BY THERESA SIMEON ON/ADDEN DUM CHERELLE Simeon, [facility] 7 08:19:03 Influenz a vaccine needed [id number] 06 Completed 201301/09/2014 RECORDED 06/08/19 14 10:00AM BY THERESA SIMEON ON/ADDEN DUM [facility] 6 10:50:45 Well child [id number] Completed 201301/09/2014 RECORDED 06/08/19 14 10:00AM BY THERESA SIMEON ON/ADDEN DUM Not Available [facility] 4 05:41:12 Essentia l hyperten shruti 05440823 Completed 201301/09/2014 RECORDED 06/08/19 14 9:59AM BY THERESA SIMEON ON/ADDEN DUM Not Available [facility] 4 05:41:12 Anxiety state 609704560 Active 2013 Not Available [facility] 2 20:00:40 Pain of joint 70916189 Completed 201309/12/2016 RECORDED 06/30/19 14 1:46PM BY MAGALI DASILVA, OFFICE VISIT CHERELLE Simeon [facility] 7 08:19:21 Asthma 164132400 Completed 201309/12/2016 Abhishek dumont [facility] 7 13:32:12 Impairme nt level: total impairme nt of both eyes 95010364 Completed 201309/12/2016 Abhishek dumont [facility] 7 13:33:08 Spinal stenosis in cervical region 82595895 Active 2013 Not Available [facility] 2 20:00:40 Neck pain 96616140 Completed 201309/12/2016 IMPRESSI ON: NECK PAIN AND RIGHT ARM SYMPTOMS , MRI OF NECK WITH DISC HERNIATI ON, NERVE COMPRESS ION, PT WILL DECIDE WHO TO SEE, RIGHT NOT ON TAPER OF PREDNSIO NE AND MOSTLY PAIN FREE, PT WILL START NEURONTI N FOR NERVE PAIN, PT WILL MOST LIKELY SEE DR ARCINIEGA, I RECC A COURSE OF PT, PT WILL BE LIMITED TO 10LBS AT WORK.; RECORDED 06/30/19 14 1:47PM BY MAGALI DASILVA, OFFICE VISIT Aye dumont, [facility] 7 12:51:15 Chronic obstruct loki pulmonar y disease 32455351 Active 2013 Not Available [facility] 2 20:00:40 Cough 58770543 Completed 201309/12/2016 RECORDED 06/30/19 14 2:12PM BY ABHISHEK Nolen MD, OFFICE VISIT CHERELLE Simeon, [facility] 7 08:19:17 Depressi ve disorder 05852981 Active 2013 Not Available [facility] 2 20:00:40 Disorder of bone and articula r cartilag e 278181588 Completed 201309/12/2016 Abhishek dumont [facility] 7 13:32:40 Malaise and fatigue 519763340 Completed 201309/12/2016 RECORDED 06/30/19 14 1:47PM BY MAGALI DASILVA, OFFICE VISIT Aye dumont [facility] 7 12:50:52 Influenz a vaccine needed 26352514081 06 Completed 201304/28/2016 RECORDED 06/30/19 14 1:59PM BY MAGALI DASILVA, OFFICE VISIT CHERELLE Simeon, [facility] 6 10:50:45 Adult health examinat ion Completed 201304/28/2016 IMPRESSI ON: PAP, MAMMOA ND COLONOSC OY UTD, HAD BEEN SMOKING A BIT, IF RESTARTS SHE WILL USE CHANTIX TO QUIT; RECORDED 06/30/19 14 1:46PM BY MAGALI DASILVA, OFFICE VISIT CHERELLE Simeon [facility] 6 10:50:54 Diaphrag matic hernia 87679957 Completed 201309/12/2016 Abhishek dumont [facility] 7 13:32:48 Pure hypercho lesterol emia 873352853 Completed 201309/12/2016 Abhishek alonzoenzcassidy dumont [facility] 7 13:32:43 Migraine 82404507 Completed 201309/12/2016 Abhishek alonzoenzcassidy dumont [facility] 7 13:32:51 Emphysem atous bronchit is 359378740 Active 2013 Not Available [facility] 2 20:00:40 Palpitat ions 92900981 Completed 201309/12/2016 IMPRESSI ON: WELL CONTROLL ED WITH TOPROL; RECORDED 06/30/19 14 1:46PM BY MAGALI DASILVA, OFFICE VISIT Aye dumont [facility] 7 12:51:12 Tobacco user 206157712 Completed 201303/24/2018 Removal Reason: stopped CHERELLE Simeon [facility] 8 10:05:05 History of clinical finding in subject 294636277 Completed 201309/12/2016 RECORDED 06/30/19 14 1:59PM BY MAGALI DASILVA, OFFICE VISIT CHERELLE Simeon [facility] 7 08:19:10 Rheumato id arthriti s 95667092 Active 2013 Not Available [facility] 2 20:00:40 Tobacco dependen ce syndrome 48923979 Completed 201304/28/2016 RECORDED 06/30/19 14 1:46PM BY MAGALI DASILVA, OFFICE VISIT CHERELLE Simeon [facility] 6 10:51:16 Chronic bronchit is Completed 201309/12/2016 IMPRESSI ON: WAS ON MEDROL DOSE PACK AND LEVAQUIN , SEEMED TO HELP BUT HAS PERSISTA NT COUGH, STILL SOUNDS VERY REACTIVE IN LUNGS TO COLD. PT TO INCREASE STRENGTH OF ADVAIR, CHECK CXR, HLD ON PREDNISO NE, USE COUGH MED, RETURN RO CALL IF NOT IMPROVIN G,S EEMS LIKE POST INFECTIO US COUGH; RECORDED 07/01/19 14 1:12PM BY ABHISHEK Nolen MD, OFFICE VISIT CHERELLE Simeon, [facility] 7 08:19:14 Follow-u p encounte r Completed 201309/12/2016 RECORDED 12/13/19 14 8:39AM BY LAI DE LEON RN, PHONE ENCOUNTE R CHERELLE Simeon, [facility] 7 08:19:03 Hyperten shruti monitori ng status 995758042 Completed 202105/12/2024 disenrol led MARIAM YOUSSEF MD [address], [place] [facility] [place], [address] , [facility] 4 07:41:38 Dependen ce on suppleme ntal oxygen 55025283807 7 Active 2021 Not Available [facility] 2 20:00:40 Problem Notes None recorded. Procedures Surgical History Date Name Laterality Status Provider Name and Address Organization Details Recorded Time 01/03/20 23 Echo transthoracic completed Kendra Virk [facility] 01/08/2023 11:39:39 10/05/19 22 Most Recent Mammogram completed Jessica Henderson [facility] 10/04/2021 14:12:20 10/05/19 22 Mammogram both breasts completed Jessica Henderson [facility] 10/04/2021 14:12:12 04/03/20 21 Advanced Care Planning completed Magali Dasilva MA [facility] 04/03/2021 13:13:19 02/07/20 20 Six-Item Cognitive Test completed Magali Dasilva MA [facility] 02/07/2020 10:40:39 06/01/19 20 Date of Last Colonoscopy completed Magali Dasilva MA [facility] 04/03/2021 13:19:02 03/24/20 18 Mini-Cog Test completed Magali Dasilva MA [facility] 03/24/2018 10:02:01 09/11/19 18 Endoscopic us exam esoph completed Aneta Shepherd [facility] 09/10/2017 16:27:13 09/12/19 16 Date of Last Pap Smear completed Magali Dasilva MA [facility] 03/24/2018 10:12:31 06/01/18 68 ENT Surgery completed Magali Dasilva MA [facility] 04/03/2021 13:07:12 06/01/18 68 Tonsillectomy completed Magali Dasilva MA [facility] 04/18/2022 13:32:38 Imaging Results None recorded. Procedure Notes None recorded. Medical Equipment None Reported. Allergies Allergen ID Allergen Name Allergen Category Reaction Reaction Severity Criticality Documentation Date Start Date Code Code System Note Provider Name and Address Organization Details Recorded Time 45952 Bactrim medicatio n rash Not available Not available 12/19/2013 38167 9 RxNorm Jovanny dumont [facility] 4 09:54:47 39748 Substance with sulfonami de structure and antibacte rial mechanism of action (substanc e) medicatio n Not available Not available Not available 08/09/20142013 46811 8003 SNOMED Stephanie Sina dumont [facility] 5 15:53:16 7069 codeine medicatio n rash Not available Not available 12/13/20132013 2670 RxNorm CHERELLE Leal [facility] 6 15:11:08 7070 erythromy brandon medicatio n rash Not available Not available 12/13/20132013 4053 RxNorm CHERELLE Leal [facility] 6 15:11:10 Medications Name Sig Start Date Stop Date Status Note LastModified by Organization Details LastModified Time Prescript ion - Prior Authoriza tion Request 04/28 completed Not Available Not Available Not Available Toprol XL 50 mg tablet,ex tended release QD active RECORDED 12/22/19 09 10:08AM BY TI BENTLEY MA, OFFICE VISIT; Not Available Not Available Not Available azithromy brandon 250 mg capsule DIRECTED 01/01 completed RECORDED 01/12/20 10 2:27PM BY ARTHUR CASTANO, MEDICATI ON AUTO-TAMMY CTIVATIO N;TAKE 2 TABS BY MOUTH ON DAY 1, THEN 1 TAB DAILY ON DAYS 2-5. Not Available Not Available Not Available fluconazo le 100 mg tablet TAKE 1 TABLET BY MOUTH ONCE DAILY FOR 7 DAYS 04/03 completed Not Available Not Available Not Available clotrimaz ole 10 mg placido 03/17 completed Not Available Not Available Not Available nystatin 100,000 unit/mL oral suspensio n 03/17 completed Not Available Not Available Not Available prednison e 10 mg tablet Take 1 tablet every day by oral route. active Not Available Not Available No t Available doxycycli ne hyclate 100 mg capsule 04/01 completed Not Available Not Available Not Available Plaquenil 200 mg tablet Take 2 tablets every day by oral route. 02/06 completed Not Available Not Available Not Available ipratropi um 0.5 mg-albute rol 3 mg (2.5 mg base)/3 mL nebulizat ion soln USE 1 vial via nebulize r TWICE DAILY active Not Available Not Available No t Available ketoconaz ole 2 % shampoo active Not Available Not Available Not Available albuterol sulfate 2.5 mg/3 mL (0.083 %) solution for nebulizat ion Inhale 3 mL 3 times a day by nebuliza tion route as directed . 05/13 completed Not Available Not Available Not Available loperamid e 2 mg capsule Take 1 capsule 3 times a day by oral route. 10/05 completed Not Available Not Available Not Available morphine concentra te 100 mg/5 mL (20 mg/mL) oral solution take 0.25ml (5mg) by mouth every 4 hours as needed for shortnes s of breath or pain active Not Available Not Available No t Available azithromy brandon 250 mg tablet TAKE 1 TABLET BY MOUTH ON thursday/ / 10/10 completed Not Available Not Available Not Available fluconazo le 150 mg tablet take 1 tablet (150 mg) by oral route once for 1 day and repeat in 48 hours 04/03 completed Not Available Not Available Not Available benzonata te 200 mg capsule take 1 capsule by mouth 3 times a day as needed for cough - do not chew or crush-sw allow whole 01/02 completed Not Available Not Available Not Available metoprolo l succinate ER 50 mg tablet,ex tended release 24 hr TAKE 1 TABLET BY MOUTH DAILY active Not Available Not Available No t Available prednison e 20 mg tablet TAKE 2 TABLETS BY MOUTH DAILY FOR 5 DAYS THEN TAKE 1 TABLET DAILY FOR 5 DAYS WITH food 02/04 completed Not Available Not Available Not Available sertralin e 100 mg tablet Take 1 tablet every day by oral route for 90 days. active Not Available Not Available No t Available prednison e 5 mg tablet TAKE 1 1/2 tablets (7.5mg) BY MOUTH DAILY WITH food active Not Available Not Available No t Available moxifloxa brandon 400 mg tablet DAILY 12/21 completed RECORDED 12/22/19 09 10:36AM BY TI BENTLEY MA, OFFICE VISIT; Not Available Not Available Not Available Advair Diskus 100 mcg-50 mcg/dose powder for inhalatio n Inhale 1 puff twice a day by inhalati on route as directed . 09/12 completed error Not Available Not Available Not Available omeprazol e 40 mg capsule,d elayed release TAKE 1 CAPSULE BY MOUTH ONCE DAILY active Not Available Not Available No t Available spironola ctone 25 mg tablet Take 0.5 tablets every day by oral route. active Not Available Not Available No t Available vancomyci n 125 mg capsule TAKE 1 CAPSULE BY MOUTH every 6 hours FOR 3 DAYS active Not Available Not Available No t Available theophyll ine ER 300 mg tablet,ex tended release,1 2 hr 1 po qd 04/03 completed Not Available Not Available Not Available amoxicill in 875 mg tablet BID 11/02 completed RECORDED 12/20/19 09 4:16PM BY MATT CADET MD, MEDICATI ON AUTO-TAMMY CTIVATIO N; Not Available Not Available Not Available lorazepam 0.5 mg tablet TAKE 1 TABLET BY MOUTH every 6 hours NEEDED FOR ANXIETY active Not Available Not Available No t Available ciproflox acin 0.3 % eye drops INSTILL 2 DROP INTO AFFECTED EYE(S) BY OPHTHALM IC ROUTE EVERY 2 HOURSWHI LE AWAKE FOR 2 DAYS THEN 1 DROP EVERY 4 HRS WHILE AWAKE FOR 5 DAYS 04/01 completed Not Available Not Available Not Available dexametha sone 1 mg tablet TAKE 1 tablet By Mouth Once, to be taken at 11pm one evening and go to lab by 8am the next morning for blood work 04/18 completed Not Available Not Available Not Available amlodipin e 10 mg tablet Take 1 tablet every day by oral route as directed . 05/13 completed Not Available Not Available Not Available benzonata te 100 mg capsule TAKE 1 CAPSULE BY MOUTH THREE TIMES DAILY NEEDED FOR cough. swallow whole. 01/27 completed Not Available Not Available Not Available cephalexi n 500 mg capsule TAKE 1 CAPSULE BY MOUTH THREE TIMES A DAY FOR 7 DAYS 05/13 completed Not Available Not Available Not Available pantopraz ole 40 mg tablet,de layed release TAKE 1 TABLET BY MOUTH ONCE DAILY 01/27 completed Not Available Not Available Not Available triamcino lone acetonide 0.1 % topical ointment apply TO affected AREA TWICE DAILY FOR 7 DAYS 04/03 completed Not Available Not Available Not Available ranitidin e 150 mg tablet active Not Available Not Available Not Available lidocaine 5 % topical patch APPLY 1 PATCH BY TRANSDER MAL ROUTE ONCE DAILY (MAY WEAR UP TO 12HOURS. ) 02/06 completed Not Available Not Available Not Available Advair Diskus 250 mcg-50 mcg/dose powder for inhalatio n Inhale 1 puff twice a day by inhalati on route for 90 days. 04/28 completed Not Available Not Available Not Available Advair Diskus 500 mcg-50 mcg/dose powder for inhalatio n Inhale 1 puff twice a day by inhalati on route as directed . 02/06 completed Not Available Not Available Not Available betametha sone dipropion ate 0.05 % topical cream apply 1 applicat ion topicall y TWICE DAILY TO periwoun ds ON right lef AND LEFT arm FOR 14 DAYS 10/25 completed Not Available Not Available Not Available sertralin e 25 mg tablet TAKE 1 TABLET DAILY DIRECTED 02/04 completed Not Available Not Available Not Available omeprazol e 20 mg capsule,d elayed release Take 1 capsule twice a day by oral route before meals for 90 days. 04/01 completed Not Available Not Available Not Available budesonid e 0.5 mg/2 mL suspensio n for nebulizat ion USE 1 VIAL VIA NEBULIZE R TWICE DAILY 05/13 completed Not Available Not Available Not Available cephalexi n 500 mg tablet Take 1 tablet 3 times a day by oral route for 10 days. 04/01 completed Not Available Not Available Not Available lisinopri l 5 mg tablet TAKE 1 TABLET BY MOUTH DAILY active Not Available Not Available No t Available mupirocin 2 % topical ointment Apply to wound twice daily until healed. 01/27 completed Not Available Not Available Not Available furosemid e 20 mg tablet Take 1 Tablet by mouth as needed. active Not Available Not Available No t Available gabapenti n 100 mg capsule Take 2 capsules 3 times a day by oral route. 02/06 completed Not Available Not Available Not Available metoprolo l succinate ER 25 mg tablet,ex tended release 24 hr Take 12.5 mg every day by oral route. 02/06 completed Not Available Not Available Not Available clobetaso l 0.05 % topical ointment apply a thin layer to the affected area(s) by topical route 2 times per day for 14 days 10/10 completed Not Available Not Available Not Available levalbute rol 1.25 mg/3 mL solution for nebulizat ion USE 1 VIAL VIA NEBULIZE R 4 TIMES DAILY 05/13 completed Not Available Not Available Not Available lorazepam 1 mg tablet take 1 tablet (=1mg) by mouth every 6 hours as needed for anxiety active Not Available Not Available No t Available levofloxa brandon 500 mg tablet Take 1 tablet every 24 hours by oral route. 02/06 completed Not Available Not Available Not Available scopolami ne 1 mg over 3 days transderm al patch WEAR FOR 72 HOURS THEN REMOVE 11/08 completed RECORDED 11/09/19 10 10:20AM BY CHERELLE LANDAVERDE, OFFICE VISIT;AP PLY TO BEHIND EAR, DO NOT CUT PATCH, APPLY AT LEAST 4 HOURS BEFORE TRAVEL, REMOVE AFTER 72 HOURS, MAY REPEAT ONCE Not Available Not Available Not Available clobetaso l 0.05 % scalp solution active Not Available Not Available Not Available ondansetr on 4 mg disintegr ating tablet active Not Available Not Available Not Available fluticaso ne propionat e 50 mcg/actua tion nasal spray,[employer] 1 spray every day by intranas al route as directed . 05/13 completed Not Available Not Available Not Available sertralin e 50 mg tablet TAKE 1 TABLET DAILY 02/04 completed Not Available Not Available Not Available lisinopri l 2.5 mg tablet Take 1 tablet every day by oral route. 02/06 completed Not Available Not Available Not Available doxycycli ne hyclate 100 mg tablet 04/28 completed Not Available Not Available Not Available ipratropi um bromide 21 mcg (0.03 %) nasal spray INSTILL 2 SPRAYS IN EACH NOSTRIL THREE TIMES DAILY active Not Available Not Available No t Available amoxicill in 875 mg-potass ium clavulana te 125 mg tablet TWO TIMES DAILY 04/12 completed RECORDED 05/18/20 12 10:30AM BY ABHISHEK Nolen MD, MEDICATI ON AUTO-TAMMY CTIVATIO N; Not Available Not Available Not Available tobramyci n 0.3 %-dexamet hasone 0.1 % eye drops,[employer] pension TAKE 1 DROPS (OPHTHAL LITTLE (EYE)) 4 TIMES PER DAY 05/13 completed Not Available Not Available Not Available neomycin 3.5 mg/g-poly myxin B 10,000 unit/g-de xameth 0.1 % eye oint APPLY TO THE RIGHT EYE THREE TIMES DAILY 02/06 completed Not Available Not Available Not Available albuterol (refill) 90 mcg/actua tion aerosol inhaler FOUR TIMES DAILY, NEEDED 04/16 completed RECORDED 04/16/20 11 8:56AM BY TENZIN ORTIZ MA, OFFICE VISIT; Not Available Not Available Not Available azithromy brandon 500 mg tablet TAKE 1 TABLET BY MOUTH ONCE DAILY FOR 5 DAYS 07/24 completed Not Available Not Available Not Available Premarin 0.625 mg/gram vaginal cream Insert 0.5 applicat orsful every other day by vaginal route for 30 days. 04/03 completed Not Available Not Available Not Available Spiriva with HandiHale r 18 mcg and inhalatio n capsules Inhale 1 capsule every day by inhalati on route. 02/06 completed Not Available Not Available Not Available Albuterol Sulfate HFA 90 mcg/Actua tion aerosol inhaler Inhale 2 puffs every 4 hours by inhalati on route. 02/06 completed Not Available Not Available Not Available acetamino phen 325 mg take 2 tablets every 4 hours as neded 2023 active Not Available Not Available Not Avai lable varenicli ne tartrate 1 mg tablet BID 06/30 completed RECORDED 06/30/19 14 1:48PM BY MAGALI DASILVA, OFFICE VISIT; Not Available Not Available Not Available varenicli ne tartrate 0.5 mg tablet BID 04/16 completed RECORDED 04/16/20 11 8:56AM BY TENZIN ORTIZ MA, OFFICE VISIT; Not Available Not Available Not Available Chantix Starting Month Arsen 0.5 mg (11)-1 mg (42) tablets in dose pack BID DIRECTED 06/30 completed RECORDED 06/30/19 14 1:48PM BY MAGALI DASILVA, OFFICE VISIT; Not Available Not Available Not Available ProAir HFA 90 mcg/actua tion aerosol inhaler Inhale 2 puffs as needed by inhalati on route as needed for 25 days. 02/06 completed Not Available Not Available Not Available cholecalc iferol (vitamin D3) 25 mcg (1,000 unit) tablet Take 1 tablet every day by oral route. 05/13 completed Not Available Not Available Not Available arformote rol 15 mcg/2 mL solution for nebulizat ion Inhale 2 mL twice a day by inhalati on route as directed . 05/13 completed Not Available Not Available Not Available guaifenes in ER 600 mg tablet, extended release 12 hr take 1 tablet (=600mg) by mouth 2 times daily as needed for cough - do not chew or crush-sw allow whole 01/02 completed Not Available Not Available Not Available Trelegy Ellipta 100 mcg-62.5 mcg-25 mcg powder for inhalatio n inhale 1 PUFF BY MOUTH into THE lungs DAILY active Not Available Not Available No t Available Shingrix (PF) 50 mcg/0.5 mL intramusc ular suspensio n, kit 02/06 completed Not Available Not Available Not Available Fluzone High-Dose 2019-20 (PF) 180 mcg/0.5 mL intramusc ular syringe INJECT 0.5ML INTO MUSCLE ONCE 02/06 completed Not Available Not Available Not Available Trelegy Ellipta 200 mcg-62.5 mcg-25 mcg powder for inhalatio n active Not Available Not Available Not Available Vitals Date Recorded Body height Heart rate Oxygen saturation Body temperature Systolic And Diastolic Provider Name and Address Organization Details Last Updated DateTime 5 161.29 cm 98 /min 96 % 98 [degF] 101/68 mm[Hg] Louis araya MA [facility] 5 13:00:01 Date Recorded Body height Provider Name an d Address Organization Details Last Updated DateTime 02/05/2024 161.29 cm Bernadette Alfaro MA [facility] 02/05/2024 13:03:58 Date Recorded Body height Provider Name an d Address Organization Details Last Updated DateTime 05/13/2024 161.29 cm Halley Bangura LPN [facility] 05/13/2024 15:28:48 Social History Question Answer Notes LastModified by Organizat ion Details LastModified Time Tobacco Smoking Status Former Smoker Quit in 05/2013 Jovanny dumont [facility] 12/19/2013 09:54:46 Do You Have An Advance Directive? No [email or web address] Information not available 04/18/2022 Is Blood Transfusion Acceptable In An Emergency? Yes [email or web address] Information not available 09/12/2015 What Is Your Level Of Caffeine Consumption? Moderate 1 Cup Daily Information not available 07/24/2023 How Much Tobacco Do You Chew? None [email or web address] Information not available 02/07/2020 In The 14 Days Before Symptom Onset, Have You Had Close Contact With A Person Who Is Under Investigation For COVID-19 While That Person Was Ill? No [email or web address] Information not available 04/18/2022 Have You Been To An Area Known To Be High Risk For COVID-19? No [email or web address] Information not available 04/18/2022 What Type Of Diet Are You Following? REGULAR [email or web address] Information not available 05/07/2016 Which Illicit Or Recreational Drugs Have You Used? CBD Oil Drops Information not available 07/24/2023 When Did You Quit Smoking? 6-10yearssi ncelastciga rette [email or web address] Information not available 04/03/2021 Hard Of Hearing Or Deaf In One Or Both Ears? No [email or web address] Information not available 04/18/2022 Legally Blind In One Or Both Eyes? No [email or web address] Information no t available 04/18/2022 Live Alone Or With Others? With Others Information not available 07/24/2023 Do You Take Precautions To Prevent Distracted Driving? Yes [email or web address] Information not available 09/12/2015 How Often Do You Need To Have Someone Help You When You Read Instructions, Pamphlets, Or Other Written Material From Your Doctor Or Pharmacy? Never [email or web address] Information not available 04/03/2021 Have You Served In The ? No Information not available 09/12/2016 Have You Or Anyone In Your Household Had Any Of The Following Symptoms In The Last 14 Days: Sore Throat, Cough, Chills, Body Aches For Unknown Reasons, Shortness Of Breath For Unknown Reasons, Loss Of Smell, Loss Of Taste, Fever At Or Greater Than 100 Degrees Fahrenheit? No [email or web address] Information not available 02/07/2020 Are You Or Anyone In Your Household A Health Care Provider Or Emergency Responder? No [email or web address] Information not available 02/07/2020 To The Best Of Your Knowledge Have You Been In Close Proximity To Any Individual Who Tested Positive For COVID-19? No Information not available 02/07/2020 *AWV ONLY* Are You Presently Prescribed Opioid Medication By PCP Or Specialist? If YES -Provider Assess The Benefit For Other, Non-opioid Pain Therapies Instead, Even If The Patient Does Not Have OUD But Is Possibly At Risk. No Information not available 02/07/2020 Have You Recently Traveled To A COVID-19 High Risk Area Or Gathering In The Last 10 Days? No [email or web address] Information not available 10/25/2020 What Was The Date Of Your Most Recent Tobacco Screening? 07/24/2023 Information not available 07/24/2023 How Many Children Do You Have? 2 Information not available 02/07/2020 Do You Use Protection During Sex? No Information not available 04/03/2021 What Is Your Relationship Status? [email or web address] Information not available 04/18/2022 Do You Use Your Seat Belt Or Car Seat Routinely? Yes [email or web address] Information not available 04/03/2021 Seat Belts Used Routinely Yes [email or web address] Information not available 04/18/2022 Are You Sexually Active? No [email or web address] Information not available 04/03/2021 Smoke Alarm In Home Yes [email or web address] Information not available 04/18/2022 Do You Have Smoke And Carbon Monoxide Detectors In Your Home? Yes [email or web address] Information not available 04/03/2021 At What Age Did You Start Smoking Tobacco? 16 [email or web address] Information not available 04/03/2021 Are You Passively Exposed To Smoke? No Information no t available 09/12/2016 How Much Tobacco Do You Smoke? 1 PPD [email or web address] Information not available 02/07/2020 Do You Use Sunscreen Routinely? No [email or web address] Information not available 04/03/2021 How Many Years Have You Smoked Tobacco? 40 [email or web address] Information not available 02/07/2020 Sex: Unknown Functional Status Question Answer Note LastModified by Organizat ion Details LastModified Time Do you use any illicit or recreational drugs? Yes Information not available 07/24/2023 What is your level of alcohol consumption? Occasional Information not available 12/19/2013 Do you or have you ever used smokeless tobacco? Never used smokeless tobacco [email or web address] Information not available 04/03/2021 Are you currently employed? No [email or web address] Information not available 04/03/2021 Are you able to walk independently without assistance or assistive devices? [email or web address] Information not available 07/24/2023 Are you able to care for yourself independently? 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 Never used electronic cigarettes [email or web address] Information not available 04/18/2022 What is your exercise level? Occasional arm chair exercises and pedal floor bike x3 week Information not available 07/24/2023 Mental Status None recorded. Family History Relationship Description Onset Age of this Age Resolved Age Notes LastModified by Organization Details LastModified Time Mother Arthritis [email or web address] Not availa ble 04/03/2021 13:06:55 Medical History Condition Response Heart Problems N Depression N COPD Y Lung Disease Y Headaches/Migraines N Anxiety Disorder Y Arthritis Y Congestive Heart Failure (CHF) Y Asthma Y High Cholesterol N Chicken Pox Y Gynecological History Statement/Question Response Date of Last Pap Smear 09/12/2015 Date of Last Colonoscopy 06/01/2019 Most Recent Mammogram 10/04/2021 Obstetrics History GPAL:G 0 P 0 0 0 0 Immunizations Vaccine Type Date Status Note Provider Nam e and Address Organization Details Recorded Time zoster live 9 completed Not Available [facility] 01/30/2022 20:00:40 zoster live 9 completed Not Available [facility] 01/30/2022 20:00:40 Tdap 0 completed CHERELLE Simeon [facility] 04/18/2022 13:23:45 Influenza, high-dose, quadrivalent, PF 0 completed CHERELLE Simeon [facility] 04/18/2022 13:23:45 COVID-19, mRNA, LNP-S, PF, 30 mcg/0.3 mL dose 1 completed CHERELLE Simeon [facility] 04/18/2022 13:23:45 COVID-19, mRNA, LNP-S, PF, 30 mcg/0.3 mL dose 1 completed CHERELLE Simeon [facility] 04/18/2022 13:23:45 zoster recombinant 9 completed Magali Dasilva MA null, [facility] 04/18/2022 13:23:45 COVID-19, mRNA, LNP-S, PF, 30 mcg/0.3 mL dose, rosalinda-sucrose 2 completed Magali Dasilva MA null, [facility] 04/18/2022 13:23:45 Influenza, split virus, quadrivalent, preservative 5 completed Magali Dasilva MA null, [facility] 04/18/2022 13:23:45 zoster recombinant 9 completed Magalilive Dasilva MA null, [facility] 04/18/2022 13:23:45 Influenza, high-dose, trivalent, PF 9 completed CHERELLE Simeon, [facility] 04/18/2022 13:23:45 Influenza, MDCK, quadrivalent, preservative 8 completed Magali Dasilva MA null, [facility] 04/18/2022 13:23:45 COVID-19, mRNA, LNP-S, PF, 30 mcg/0.3 mL dose 1 completed CHERELLE Simeon, [facility] 04/18/2022 13:23:45 Influenza, split virus, quadrivalent, PF 7 completed CHERELLE Simeon, [facility] 04/18/2022 13:23:45 Influenza, high-dose, quadrivalent, PF 2 completed CHERELLE Robertson, [facility] 01/27/2023 14:23:53 COVID-19, mRNA, LNP-S, bivalent, PF, 30 mcg/0.3 mL dose 2 completed CHERELLE Robertson, [facility] 01/27/2023 14:23:53 Influenza, adjuvanted, quadrivalent, PF 3 completed CHERELLE Baez, [facility] 07/24/2023 15:08:55 COVID-19, mRNA, LNP-S, PF, rosalinda-sucrose, 30 mcg/0.3 mL 3 completed Patricia Savage MA null, [facility] 07/24/2023 15:08:55 RSV, recombinant, protein subunit RSVpreF, adjuvant reconstituted, 0.5 mL, PF 4 completed Halley Bangrua [employer] WORK[employer] null, [facility] 05/13/2024 15:29:03 COVID-19, mRNA, LNP-S, PF, rosalinda-sucrose, 30 mcg/0.3 mL 4 completed Halley Bangura PS[employer]CHI[employer]IC SOCIAL WORKER null, [facility] 05/13/2024 15:29:03 Influenza, high-dose, trivalent, PF 4 completed Halley Bangura PSYCHIAT[employer]IC SOCIAL WORKER null, [facility] 05/13/2024 15:29:03 Influenza, split virus, quadrivalent, PF 6 completed Not Available [facility] 06/18/2019 02:22:07 Influenza, split virus, trivalent, PF 4 completed Not Available [facility] 06/18/2019 02:21:56 pneumococcal polysaccharide PPV23 1 completed Abhishek Benito nzo null, [facility] 04/04/2021 13:27:04 Influenza, high-dose, quadrivalent, PF 1 completed Abhishek Benito nzo null, [facility] 04/04/2021 13:27:04 Tdap 8 completed Not Available [facility] 01/30/2022 20:00:40 pneumococcal polysaccharide PPV23 9 completed Not Available [facility] 01/30/2022 20:00:40 Influenza, split virus, trivalent, preservative 9 completed Not Available [facility] 01/30/2022 20:00:40 Influenza, split virus, trivalent, preservative 1 completed Not Available [facility] 01/30/2022 20:00:40 Influenza, split virus, trivalent, preservative 2 completed Not Available [facility] 01/30/2022 20:00:40 Influenza, split virus, trivalent, preservative 3 completed Not Available [facility] 01/30/2022 20:00:40 Past Encounters Encounter ID Performer Location Encounter Start Date Encounter Closed Date Diagnosis/Indication Diagnosis SNOMED-CT Code Diagnosis ICD10 Code Diagnosis IMO Codes Diagnosis Note [id number] Ginette Liu [facility] Main Office [address] [place] [address] 12/19/2013 09:38:53 12/19/2013 10:24:27 Cardiomyopathy 03480245 Subarachno id hemorrhage 82770638 Fracture of rib [id number] autoEComm erce [address] [facility] [place] [address] 06/11/2006 00:00:00 [id number] autoEComm erce [address] [facility] [place] [address] 04/20/2006 00:00:00 [id number] autoEComm erce [address] [facility] [place] [address] 10/09/2005 00:00:00 [id number] autoEComm erce [address] [facility] [place] [address] 07/01/2007 00:00:00 [id number] autoEComm erce [address] [facility] [place] [address] 01/27/2008 00:00:00 [id number] autoEComm erce [address] [facility] [place] [address] 06/05/2008 00:00:00 [id number] autoEComm erce [address] [facility] [place] [address] 06/08/2008 00:00:00 [id number] autoEComm erce [address] [facility] [place] [address] 10/19/2008 00:00:00 [id number] [place] [address] 12/21/2008 00:00:00 [id number] auto[address]Comm erce [address] [place] [address] 04/06/2009 00:00:00 [id number] autoEComm erce [address] [facility] [address] [place] [address] 10/18/2009 00:00:00 [id number] autoEComm erce [address] [facility] [address] [place] [address] 11/08/2009 00:00:00 [id number] autoEComm erce [address] [facility] [address] [place] [address] 12/27/2009 00:00:00 [id number] autoEComm erce [address] [facility] [place] [address] 03/22/2010 00:00:00 [id number] autoEComm erce [address] [facility] [place] [address] 04/10/2010 00:00:00 [id number] autoEComm erce [address] [facility] [place] [address] 04/16/2011 00:00:00 [id number] autoEComm erce [address] [facility] [place] [address] 04/02/2012 00:00:00 [id number] autoEComm erce [address] [facility] [place] [address] 05/28/2012 00:00:00 [id number] autoEComm erce [address] [facility] [place] [address] 06/08/2013 00:00:00 [id number] autoEComm erce [address] [facility] [place] [address] 06/30/2013 00:00:00 [id number] Abhishek lindsey MD Main Office [address] [place] [address] 02/15/2014 12:37:07 02/15/2014 13:49:02 Needs influenza immunization 964213189 Congestive heart failure 29734984 pt with cardiomyop athy, reduced EF. is on meds, in cardiac rehab, still with dyspnea on exertion. will be out of work Chronic ob structive pulmonary disease 88397567 quit smoking, followed by lico, continue inhalers Cardiomyopathy 81080150 se e above Anemia 661850945 recheck level Anxiety state 409841984 pt to use prn lorazepam Gastroesop hageal reflux disease 804239217 will start PPI [id number] Abhishek lindsey MD Main Office [address] [address] [place] [address] 04/21/2014 10:45:38 04/21/2014 11:24:19 Chronic obstructive pulmonary disease 53694185 quit smoking, followed by lico, continue inhalers, will lower advair to 250/50 due to side effects of onhaler at 500/50 Congestive heart failure 00100288 EF improved on last echo, cardiac rehab helping,s till not at baseline but cardiac rehab is helping Gastroesop hageal reflux disease 928689335 increae PPI due to a lot of symptoms Cardiomyopathy 02015511 se e above, followed by cardiology [id number] Abhishek lindsey MD Main Office [address] [address] [place] [address] 06/28/2014 13:56:00 06/28/2014 14:46:19 Adult health examination 065917281 pap due next year, mammo and colonoscop y utd, will do more exercise when recovered form surgery. Chronic ob structive pulmonary disease 16147007 quit smoking, followed by lico, continue inhalers Congestive heart failure 94059384 EF improved on last echo, finished cardiac rehab and now needs to do regular exercise on own Cardiomyopathy 94541472 se e above, followed by cardiology Anxiety state 720277995 pt to use prn lorazepam [id number] Abhishek lindsey MD Main Office [address] [address] [place] [address] 11/23/2014 09:33:29 11/23/2014 10:23:05 Cardiomyopathy 84205028 see above, followed by cardiology , less CHF issues, is on Lasix, more with COPD complaints . followup with cardiology a dn work on conditioni ng Congestive heart failure 95670591 did cardiac rehab, stble on emds Chronic ob structive pulmonary disease 24641223 quit smoking, followed by lico, continue inhalers and pt to change to DR Pompa and ask to be set up in pulmonary rehab int he fall, will add zyrtec for allergic component Eruption 772057021 seems allergic start zyrtec Environmental allergy 703983937 [id number] Abhishek lindsey MD Main Office [address] [facility] [address] [place] [address] 09/12/2015 13:50:53 09/12/2015 14:55:37 Adult health examination 957302191 Z00.00 pap done today, mammo utd and pt will set up colonoscop y once things settle down, Gynecologi c examination 58753752 Z01.411 nl exam Screening for malignant neoplasm of colon 327061636 Z12.11 pt to arrange when things quieter Cardiomyopathy 95094996 I50.9 stable, EF on recent echo stable Screening for malignant neoplasm of lung 881536903 Z12.2 pt will get lung cancer screening, smoked more than 30 years they will contact her through program at [facility] Conjunctivitis [id number] H 10.9 left eye but treat both, has sulfa allergy so went with cipro Chronic ob structive pulmonary disease 67581868 J44.9 quit smoking, followed by lico, continue inhalers [id number] Abhishek lindsey MD Main Office [address] [facility] [address] [place] [address] 03/31/2016 10:46:51 03/31/2016 11:03:14 Needs influenza immunization 333643983 Z23 [id number] Abhishek lindsey MD Main Office [address] [facility] [address] [place] [address] 04/28/2016 10:22:17 04/28/2016 11:21:57 Chronic obstructive pulmonary disease 86729143 J44.9 COPD exacerbati on and cough is very disruptive , I tried to get a call back form [facility] pulmonary, called twice but no call back, will have nurse call tomorrow and pt to followup, ? prednisone to lessen cough Congestive heart failure 15762425 I50.9 uses lasix as needed, heart shows a bit better on last echo. Gastroesop hageal reflux disease 339655869 K21.9 increase PPI due to a lot of symptoms Anxiety 59228214 F41.9 uses lorazepam at times [id number] David Leon PA-C Main Office [address] [address] 05/07/2016 15:03:09 05/07/2016 15:43:31 Cough 10238032 R05 finish tessalon as dir Dyspnea 620606544 R06.00 better now --- ? d/t copd exac - finish pred / levaquin as dir -- ? d/t chf since has responded better p lasix - cont this qd until sees card (or at least 2 more days) Chronic ob structive pulmonary disease 80473840 J44.9 see above Congestive heart failure 85721246 I50.9 see above [id number] Abhishek lindsey MD Main Office [address] [address] 05/27/2016 15:41:26 05/28/2016 11:08:34 [id number] Abhishek lindsey MD Main Office [address] [address] 09/12/2016 12:57:10 09/12/2016 13:49:59 Adult health examination 244381517 Z00.00 pap is utd, mammo utd and pt will set up colonoscop y once things settle down, Chronic ob structive pulmonary disease 63590901 J44.9 pt is doing the best she has been, finding a lot of benefit form pulmonary rehab Rheumatoid arthritis 698 95874 M06.9 not on meds, has been quiet Spinal sachi nosis in cervical region 33008305 M48.02 Cellulitis 575608012 L03 .90 below right eye, worseing each day, not a true periorbita l cellulitis and pt preferred to avoid augmentin due to hx of diarrhea with it, will tx with keflex, soaks and eyedrops, abisai if worsening and I will change to augmentin, no hx of MRSA Acute conjunctivitis 537 40639 H10.31 treat with drops without sulfa since ahs a sulfa allergy and tx cellulitis with keflex Anxiety 70618988 F41.9 uses lorazepam at times, refilled today [id number] Abhishek lindsey MD Main Office [address] [facility] [address] [place] [address] 04/01/2017 10:29:11 04/01/2017 12:18:40 Chronic obstructive pulmonary disease 75089163 J44.9 pt is on inhalers, they are expensive so using the Updraft machine more, breathing feels so much better. Hypercholesterolemia 136 14447 E78.2 check labs Essential hypertension 97293458 I10 well controlled continue meds Congestive heart failure 12739012 I50.9 stable, no episodes since hospitaliz ation 3 years ago, followed by Dr Best [id number] Nisreen Leon PA-C Main Office [address] [place] [address] 03/17/2018 10:43:24 03/17/2018 12:05:32 Diarrhea 89679366 R19.7 Pt presents with symptoms that are consistent with possibly infectious causes of diarrhea, but Celiac should also be considered . If all stool tests and labs are normal, pt. will have to f/u with the GI. [id number] Abhishek lindsey MD Main Office [address] [place] [address] 03/24/2018 09:58:03 03/24/2018 10:58:55 Adult health examination 710034605 Z00.00 pap is utd, mammo utd and pt will set up colonoscop y once things settle down, Screening for malignant neoplasm of colon 740123161 Z12.11 pt to arrange when things quieter Solitary n odule of lung 651919263 R91.[address] Pompa, Chronic ob structive pulmonary disease 96393370 J44.9 pt is on inhalers, they are expensive so using the Updraft machine more, breathing feels so much better. uses oxygen at night and for daytime activity History of cardiomyopathy 7109662885 51162 Z86.79 on spironolac tone, stabe fluid status, sees cardiology once a year [id number] Abhishek lindsey MD Telehealt [facility] [address] [facility][1] [address] [place] [address] 02/07/2020 08:34:40 02/07/2020 11:55:46 Adult health examination 639618393 Z00.00 pt is overdue for mammogram and colon cancer screening, see below Screening for malignant neoplasm of breast 349651794 Z12.39 pt to arrange Chronic ob structive pulmonary disease 52100985 J44.[address] followed by Dr Pompa, she is feeling well except for when she is active, wears oxygen when active and with sleep. will get flu shot and taking precaution s against Covid 19 Screening for malignant neoplasm of colon 474718923 Z12.11 pt is requesting cologuard, she understand s it is not as a complete screen as a colonoscop y Anxiety 97987568 F41.9 uses lorazepam at times, refilled today Essential hypertension 72421376 I10 well controlled continue meds will set up for [facility] monitoring . [id number] Abhishek lindsey MD Main Office [address] [facility] [address] [place] [address] 10/25/2020 15:30:58 10/25/2020 16:11:45 Atrophic vaginitis 63938978 N95.2 will refer to rn gyn to check no other concerns, pt has a few patches, not sure if lichen planus as well. 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 I discussed MOLST and health care proxy form. I gave pt MOLST form and proxy form, pt will fill out, discuss MOLST form with proxy and sign and return to our office Chronic ob structive pulmonary disease 23171234 J44.[address] by Dr Pompa, severe disease, was referred for lung transplant , pt is [place] and gathering info but reluctant, Anxiety state 278866979 F41.1 pt to use prn lorazepam Cardiomyopathy 68281212 I50.9 stable, EF on recent echo stable Administra tion of pneumococcal vaccine 42446558 Z23 Influenza vaccine needed 6212141627 106 Z23 Anxiety 61646413 F41.9 will start low dose med, gets anxious at doc appts, [id number] Abhishek lindsey MD Main Office [address] [place] [address] 10/10/2021 12:53:49 10/10/2021 13:30:31 Chronic obstructive pulmonary disease 71383314 J44.[address] pt is followed by Dr Pompa, severe disease, was referred for lung transplant but is not interested . stable on oxygen, dyspneic at rest pt knows to get PCV 20 in 05/22 at pharmacy, has all covid boosters had PCV 23 twice but no 13 Congestive heart failure 16731108 I50.9 stable, no episodes since hospitaliz ation 3 years ago, followed by Dr Best Essential hypertension 61973869 I10 did not like [facility] so disenrolle d. 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 24274164 F32.5 stable on sertraline continue started for anxiety Dependence on supplemental oxygen 9796650078 07 Z99.81 [id number] Abhishek lindsey MD Main Office [address] [place] [address] 04/18/2022 13:20:36 04/18/2022 14:06:26 Adult health examination 429977700 Z00.00 mammogram utd, cologuard due 06/2022. mammo utd, limited in activity due to chronic dyspnea from COPD Chronic ob structive pulmonary disease 89914225 J44.[address] pt is followed by Dr Pompa, severe disease, on oxygen and stable Cardiomyopathy 98040252 I50.9 stable, EF on recent echo stable Dependence on supplemental oxygen 5052682758 07 Z99.81 continue Screening for malignant neoplasm of colon 895101155 Z12.11 Z12.12 due for repeat cologuard, ordered Essential hypertension 58244230 I10 BP stable and cardiology follows Anxiety 62326165 F41.9 pt can get very anxious when getting ready for something, her breathing quickens, [id number] MARIAM YOUSSEF MD Main Office [address] [facility] [address] [facility] [place] [address] 01/27/2023 14:08:39 01/27/2023 14:42:55 Chronic obstructive pulmonary disease 70764437 J44.9 - worsening, last hospitaliz ation was 05/2022- pt is followed by Dr Pompa, last seen on 12/18/22- pt was started on xopex BID- pt is currently on daily steroids 7.5mg and oxygen therapy- pt will not use albuterol inhaler as it causes too much tachycardi a- has ipratropiu m nasal spray TID- c/w trelegy ellipta 1 puff QD- was referred for lung transplant but is not interested Congestive heart failure 32620851 I50.9 - follows with cardiology , last see Dr. Best on 11/21/2022- stable, no episodes since hospitaliz ation 3 years ago- c/w lisinopril 5mg QD and furosemide 20mg QD Essential hypertension 72752643 I10 did not like [facility] so disenrollchris hackett. 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 47888568 F32.5 stable on sertraline Dependence on supplemental oxygen [id number] 07 Z99.81 - on 2L NC Anxiety 18032115 F41.9 - pt will use lorazepam 0.5mg as needed for anxiety, mostly for when she with a lot people [id number] MARIAM YOUSSEF MD Main Office [address] [facility] [address] [facility] [place], [place] [address] 07/24/2023 14:56:01 07/24/2023 15:37:47 Chronic obstructive pulmonary disease 28521898 J44.9 - worsening, last hospitaliz ation was 05/2022- pt is followed by Dr Pompa, last seen on 05/07/23- pt was started on xopex BID- pt is currently on daily steroids 7.5mg and oxygen therapy- pt will not use albuterol inhaler as it causes too much tachycardi a- has ipratropiu m nasal spray TID- c/w trelegy ellipta 1 puff QD- was referred for lung transplant but is not interested Dependence on supplemental oxygen [id number] 07 Z99.81 - on 2L NC Congestive heart failure 12215902 I50.9 - follows with cardiology , last see Dr. Best on 11/21/2022- stable, no episodes since hospitaliz ation 3 years ago- c/w lisinopril 5mg QD, spironolac tone 12.5mg QD, metoprolol succinate ER 50mg and furosemide 20mg QD Essential hypertension [id number] I10 - at goal- BP today is 115/76- c/w lisinopril 5mg QD, furosemide and spirinolac tone 12.5mg QD, metoprolol succinate ER 50mg- did not like [facility] so disenrolle d Pt counselled on:-Dietar y Approaches to Stop Hypertensi on (DASH) is an eating plan rich in fruits, vegetables , whole grains, fish, poultry, nuts, legumes, and low-fat dairy. These foods are high in scott nutrients such as potassium, magnesium, calcium, fiber, and protein.-A dvised continued adherence to medication s and low salt diet - extensive counsellin g done regarding dietary habits.-En couraged regular aerobic exercise 30 min for 4-5 x week.-BP monitoring at home advised to bring log at every visit-Side -effects of high BP can cause Stroke, Heart attack and even d/w pt-D/w pt when to call 911 or reach out to Health care provider:> Think you are having a reaction to a medicine you are taking.>Enrique ve headaches that keep coming back (recurring ).>Feel dizzy.>Hav e swelling in your ankles.>Enrique ve trouble with your vision. 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 14359899 F32.5 - PHQ-9 score 1- c/w sertraline 50mg QD- denies SI/HI- mary ann woods provided Anxiety 85634027 F41.9 - ALBAN-7 score 3- pt will use lorazepam 0.5mg as needed for anxiety, mostly for when she with a lot people- uses cbc drops as well intermitte ntly- c/w sertraline 50mg QD- counsellin g provided Adult heal th examination [id number] Z00.00 Health Maintenanc e FemaleA) Patient was counseled on healthy diet, exercise and nutrition due to BMI of 26 B) ScreeningL ast Mammogram: start at age 48 stop at 72Date: 2Re sult: BIRADS-2Ne xt: there is longer any benefit for her to undergo mammograms Last Pap smear: aged out Last Colonoscop y: start at age 45-75Date: 03/02/2013 Result: negative (cologuard )Next: 3 years Last DEXA scan:Date: pt refused Low dose CT scan:Date: 05/06/2022 Result: Moderate-s evere centrilobu lar emphysema. Similar appearance of left adrenal gland adenomas.N ext: DUE C) Vaccines:I nfluenza: 03/10/2023 TdAP: 02/04/2020Zo ster: 07/08/2018, 01/01/2019PC V13: due at 26BIFB39: 04/06/2009 , 04/03/2021 OVID: 07/19/2020, 08/08/2020, 02/25/2021, 09/06/2021, 03/20/2022 , 03/10/2023 D) Routine blood work orderedE) Updated patient's history RTC in one year for annual exam or sooner if any acute complaints Hepatitis C screening 39 [id number] Z11.59 Fatigue 13209643 R53.83 Z00.00 Hyperlipidemia 06346821 E78.5 Z00.00 Gastroesop hageal reflux disease 448826498 K21.9 The following lifestyle changes are recommende d and counseled : -Losing weight: Losing weight helps people who are overweight to reduce acid reflux. -Raising the head of your bed six to eight inches -Avoiding foods that trigger symptoms Avoid excessive caffeine, chocolate, alcohol, peppermint , and fatty foods. -c/w omeprazole 40mg [id number] MARIAM YOUSSEF MD Main Office [address] [facility] [address] [place] [address] 02/05/2024 12:54:41 02/05/2024 14:51:12 Anxiety state 399861294 F41.1 - pt anxiety is elevated- increased sertraline from 50mg to 100mg- increased lorazepam from 0.5mg QD to BID as needed- mary ann woods provided Congestive heart failure 23202630 I50.9 - follows with cardiology , last see Dr. Best on 11/21/2022> pt has an appoitment next week- stable- c/w amlodipine 10mg QD, lisinopril 5mg QD, spironolac tone 12.5mg QD, metoprolol succinate ER 50mg and furosemide 20mg QD Chronic ob structive pulmonary disease 79826219 J44.9 - worsening, last hospitaliz ation was 12/2023- pt is followed by Dr Pompa, last seen on 05/07/23- pt was started on xopex BID- pt is currently on daily steroids 10mg and oxygen therapy- pt will not use albuterol inhaler as it causes too much tachycardi a- has ipratropiu m nasal spray TID- c/w trelegy ellipta 1 puff QD- was referred for lung transplant but is not interested Acute kidney injury 1466 9001 N17.9 - creatine of 2 with GFR of 18 (while in hospital)- will recheck levels- pt advised to remain hydrated Bacteremia 2192423 R78.8 1 - pt recently hospitaliz ed for listeria pneumonia and copd exacerbati on- will recheck cbc Anemia of chronic disease 668436269 D63.8 - h/h: 9.06/27- will recheck levels Screening for harmful pattern of alcohol use 842729227 Z13.39 - prior to hospitaliz ation pt was drinking 2+ glasses of a wine a day- pt has not yet started back drinking since hospitaliz ation- pt advised not to drink more than 1 glass a day for 4 days Hypocalcemia 7317854 E83 .51 - during hospitaliz ation calcium noted to be 8- will recheck levels- ordered PTH and vitamin D level [id number] MARIAM YOUSSEF MD Main Office [address] [facility] [address] [place] [address] 01/25/2024 11:44:37 01/25/2024 12:16:20 [id number] MARIAM YOUSSEF MD Main Office [address] [facility] [address] [place] [address] 05/13/2024 14:57:18 05/13/2024 16:45:29 Anxiety state 282692065 F41.1 - ALBAN-7 score of 8- pt anxiety has improved and stabolized - c/w sertraline 100mg- c/w lorazepam from 0.5mg BID as needed- counsellin g provided Chronic ob structive pulmonary disease 22005936 J44.9 - worsening, last hospitaliz ation was 12/2023- pt is followed by Dr Pompa, last seen on 04/25/2024 - pt is currently on daily steroids 10mg and oxygen therapy- pt will not use albuterol inhaler as it causes too much tachycardi a- has ipratropiu m nasal spray TID- c/w trelegy ellipta 1 puff QD- was referred for lung transplant but is not interested Dependence on supplemental oxygen [id number] 07 Z99.81 - on 2L NC Congestive heart failure 34014241 I50.9 - follows with cardiology , last see Dr. Best on 02/08/2024- stable- c/w amlodipine 10mg QD, lisinopril 5mg QD, spironolac tone 12.5mg QD, metoprolol succinate ER 50mg> only takes furosemide 20mg QD if having lower extremity edema [id number] MARIAM YOUSSEF MD Main Office [address] [place] [address] 06/14/2024 08:55:34 06/14/2024 11:34:27 [id number] MARIAM YOUSSEF MD Main Office [address] [place] [address] 06/16/2024 10:58:52 06/16/2024 13:02:52 Anemia due to unknown mechanism 96648060 D64.9 R68.89 - worsening- Hb 8.8/28.9- previous iron testing was negative- will recheck levels Clostridiu m difficile colitis 012202944 A04.72 - currently treatment with vancomycin - there has some improvemen t in diarrhea however not yet completely resolved- ordered repeat stool testing to ensure negative- ordered repeat BMP Anxiety state 000623040 F41.1 - stable- pt is doing much better know at home, pt does have increased anxiety while in hospital- c/w sertraline 100mg- c/w lorazepam from 0.5mg BID as needed, refilled- counsellin g provided Acute resp iratory syncytial virus bronchitis 713831055 J20.5 - was diagnosed while in hospital- pt is currently at baseline for oxygen saturation Transition from acute care to self-care [id number] 70869 Z76.89 - reviewed discharge note Chronic ob structive pulmonary disease 19816486 J44.9 - worsening, last hospitaliz ation was 12/2023- pt is followed by Dr Pompa, last seen on 04/25/2024 - pt is currently on daily steroids 10mg and oxygen therapy- pt will not use albuterol inhaler as it causes too much tachycardi a- has ipratropiu m nasal spray TID- c/w trelegy ellipta 1 puff QD- was referred for lung transplant but is not interested - referred to palliative care has patient is ready to start the transition [id number] John Seaman MD Main Office [address] [facility] [address] [facility] [address] 01/02/2025 12:40:32 01/02/2025 13:27:34 Preprocedural examination done [id number] 60397 Z01.818 502615 No medical contraindi cations to proposed procedure. Micah Perioperat loki Cardiac Risk was calculated and the risk for perioperat loki [place] is <1%. May proceed to surgery as planned. Chronic ob structive pulmonary disease 30915265 J44.9 NC on 2-3mL of continuous O2-on palliative care Congestive heart failure 49131545 I50.9 follows with cardiology , Dr. Best- stable, no episodes since hospitaliz ation 4 years ago Bilateral cataracts 9572 2003 H26.9 10186225 pre-operat loki medical clearance for cataract extraction s with intraocula r lens implants with Dr. Lukasz Johns of [facility]. Surgery dates: 01/16/25 and 02/08/25. Under topical anesthesia . Health Concerns Section Related Observation LastModified by Organization Detai ls LastModified Time None Recorded Concern Status LastModified by Organization Details LastModified Time None Recorded Advance Directives Directive N: Payers Insurance Date Sequence Insurance Name Policy Number Policy Doss Covered Member ID Doss Member ID Guarantor Name 01/04/2025 1 [place]: [employer] Viji Hernandez [id number] Viji Manriquez Mary 10/10/2021 1 [facility] (O) [id number] Viji Manriquez Mary [id number] Viji Manriquez Mary 01/04/2025 2 [place] [id number] Viji Manriquez Mary [id number] Viji Manriquez Mary Notes Date Note Type Note Provider Name and Address Organization Details Recorded Time 4 text/html Hospitalization Contact RecordReported by PatientHospitalization Contact RecordFor follow up, [facility] date: (please enter in format 'mm/dd/') (12/08/2023), anddate of discharge: (please enter in format 'mm/dd/yyyy') (12/18/2023).Patient was recently admitted for respiratory failure. It was noted that patient was having a uptrend in troponin without EKG findings concerning for NSTEMI. Pt was febrile with elevated white blood cell count. Pt was started on ceftriaxone which later switched to vancomycin and zosyn due to blood cultures. Due to respiratory distress pt was on CPAP and taper off to NC. Pt was also on placed on prednisone taper. As for her elevated troponins, she was seen be cardiology who believe they are secondary to demand ischemia rather than NSTEMI. ECHO with definity remains technically difficult and limited study. Suspicion of hypokinesis of basal to mid inferior and inferior lateral hansen with ejection fraction in the 50% range. 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 She was on IV ampicillin and will continue until 12/23 and will need to follow up with ID outpatient. Pt was found to have AMIE. Due to this lisinopril and spironolactone were held and she was started on amlodipine.Her anemia was worked up, B12, folate and iron studies pointing towards anemia of chronic disease. She should follow up with PCP to monitor. Her thin skin that is easily bruises is likely due to the chronic steroid use. She was also started on po thiamine due to concerns for excessive alcohol use at home and poor nutrition. Pt was sent to rehab. COPDReported by PatientHPI:For aggravating factors, patient reportsworse with exertion. For associated symptoms, patient reportsdyspnea,dyspnea during exertion,fatigue, andcoughbut reportsno snoring,no excessive daytime sleepiness,no arousals from sleep,no decrease in exercise capacity,not coughing up sputum,no fever,no wheezing,no weight loss, andno depression. For onset/timing, patient reportschronic. For duration, patient reportsattacks are frequent. For severity, patient reportssevere,used nebulizer 1 times for this episode,uses nebulizer/inhaler an average of ___ times/week lately, andadmitted to hospital 1-2 times/year(does not use albuterol due to tachycardia). For quality, patient reportssymptoms worse during the day.Most recent exacerbation in December 2023. Viji Hernandez is a 68 year old F who was seen over for on recent hospitalization and COPD. Pt is on oxygen and has limitations in what she can do can no longer do iADLS, still able to do ADLs. MARIAM YOUSSEF MD [address], [address], [facility] 02/05/2024 14:49:04 4 text/html Anxiety/DepressionReported by PatientHPIFor context, patient reportsmajor life stressors (medical problems). For quality, patient reportssymptoms improved. For severity, patient reportsdenies suicidal ideations,able to maintain relationships, anddoes not interfere with activities of daily living. For duration, patient reportsstablizing. For onset/timing, patient reportsstill present. For modifying factors, patient reportsmedications as directed. COPDReported by PatientHPI:For aggravating factors, patient reportsworse with exertion. For associated symptoms, patient reportsdyspnea,dyspnea during exertion,fatigue, andcoughbut reportsno snoring,no excessive daytime sleepiness,no arousals from sleep,no decrease in exercise capacity,not coughing up sputum,no fever,no wheezing,no weight loss, andno depression. For onset/timing, patient reportschronic. For duration, patient reportsattacks are frequent. For severity, patient reportssevere,used nebulizer 1 times for this episode,uses nebulizer/inhaler an average of ___ times/week lately, andadmitted to hospital 1-2 times/year(does not use albuterol due to tachycardia). For quality, patient reportssymptoms worse during the day.Most recent exacerbation in December 2023.ROS as noted in the HPI Viji Hernandez is a 68 year old F who was seen over TH for follow-up on her anxiety. Pt is on oxygen and has limitations in what she can do can no longer do iADLS, still able to do ADLs. Pt only goes out for appoitments. Gets very short breath easily, for example can occur even after speaking for a lenght of time. Still continues to try to cook, this used to bring patient a lot rosa. Has hired someone to help with house cleaning. Pt was recently seen by pulmonology on 04/25/2024 and there some medication changes stopped budesonide and yupelri. Has been placed back on trelegy. Continues with 2-3L NC. Has seen dermatology. 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 MARIAM YOUSSEF MD [address] [facility] [address] [facility], [place], [address], [facility] 05/14/2024 11:19:56 5 text/html Hospitalization Contact RecordReported by PatientHospitalization Contact RecordFor follow up, [facility]ospital[facility],admit date: (please enter in format 'mm/dd/yyyy') (06/05/2024),date of discharge: (please enter in format 'mm/dd/yyyy') (06/13/2024), anddate of contact: (please enter in format 'mm/dd/yyyy') (06/14/2024).Medicare covered inpatient stay? yes Medicare SAAD with in 48 working hours? yes High Complexity code valid on or before:June Moderate Complexity code valid on or before: June HCP on file? no MOLST on file? yes Discharge Summary available? yes 68 year old female with long history of chronic respiratory failure , COPD, presented to [facility] [place] [facility] complaining of abdominal pain admitted for c diff, colitis during examination revealing patient was positive for RSV as well. Patient started on antibiotic regimen inpatient , patient improved , vitals stable,oxygen at baseline . Patient to completed additional thre days of antibiotic course outpatient. Office Support Assistant SAAD call to patient regarding recent discharge, limited conversation. Patient reports still very tired and has no energy . Denies fever, nausea, vomiting, chest pain or excessive shortness of breath. 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 Scheduled patient with provider on 06/16/2024 at 11:30 am , telehealth. Patient compliant with appointment, at this time patient defers further conversation will discuss further with provider at time of visit. PCP Heads Up:Recommend: Palliative/ hospice referraldefers/ refuses servicesBMP to be completed in 1 weekfollow up for anxiety/anemiaPulmonary f/u MARIAM YOUSSEF MD [address], [address], [facility] 06/14/2024 11:34:24 5 text/html Hospitalization Contact RecordReported by PatientHospitalization Contact RecordFor follow up, [facility],admit date: (please enter in format '/dd/yyy') (06/05/2024),date of discharge: (please enter in format 'mm/dd/yyyy') (06/13/2024), anddate of contact: (please enter in format 'mm/dd/yyyy') (06/14/2024).Medicare covered inpatient stay? yesMedicare SAAD with in 48 working hours? yesHigh Complexity code valid on or before:JuneModerate Complexity code valid on or before:JuneHCP on file? noMOLST on file? yesDischarge Summary available? yes 68 year old female with long history of chronic respiratory failure , COPD, presented to [facility] [place] 06[place]05/2024 complaining of abdominal pain admitted for c diff, colitis during examination revealing patient was positive for RSV as well. Patient started on antibiotic regimen inpatient , patient improved , vitals stable,oxygen at baseline . Patient to completed additional thre days of antibiotic course outpatient. Office Support Assistant SAAD call to patient regarding recent discharge, limited conversation. Patient reports still very tired and has no energy . Denies fever, nausea, vomiting, chest pain or excessive shortness of breath. 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 Scheduled patient with provider on 06/16/2024 at 11:30 am , telehealth. Patient compliant with appointment, at this time patient defers further conversation will discuss further with provider at time of visit. PCP Heads Up:Recommend: Palliative/ hospice referraldefers/ refuses servicesBMP to be completed in 1 weekfollow up for anxiety/anemiaPulmonary f/uROS as noted in the HPI Viji Hernandez is a 68 year old F who presents to the clinic for hospital follow-up. Pt was recently admitted c. diff and rsv. Patient mentions that is she doing much better. Has been having less diarrhea. Yesterday had two bowel movements. Pt reports no current trouble with her breathing. Viji does mention that she her legs have swollen. She took one dose of furosemide this AM. On discussion, patient mentions she would like to start getting more services. She is interested in palliative care. Currently has a helper at home. Does have trouble paying for the service and is wondering if insurance could help. MARIAM YOUSSEF MD [address] [address], [place], [address], [facility] 06/16/2024 13:23:39 5 text/html ROS as noted in the HPI Viji is a 69yr old F with PMHx of COPD, CHF, and anxiety presents for pre-operative medical clearance for cataract extractions with intraocular lens implants with Dr. Lukasz Johns of [facility]. Surgery dates: 01/16/25 and 02/08/25. Under topical anesthesia. Denies any acute complaints at this time. Wears O2 via NC on 2-3mL. Known allergies to bactrim, codeine, erythromycin, and sulfa drugs. Has tolerated anesthesia in the past without complications. The patient does follow w/ Cardiology, is in a wheelchair on O2. METS score ~ 1 The patient currently denies chest pain, shortness of breath, palpitations, fever, chills, and nausea/vomiting. ARTHUR RAM [address] [facility] [address], [place], [address], [facility] 01/02/2025 13:32:34 OBGyn Episode No OBEpisode recorded.
--- OUTSIDE RECORDS SUMMARY | 2025-04-20 20:43 | XMS_ITS | Encounter Summary ---
Author Organization [facility] Address [address] [facility] [address] [place] [address] Phone Care Team Providers Care Pr Internship Name Role Phone Zoya Everett MD Primary Care Prov ider Diogenes Sherwood MD Unavailable [phone] Kale Zhong MD Unavailable [phone] Mehnaz Li KENNEL ATTENDANT Unavailable [phone] Kale Zhong MD Unavailable [phone] Génesis Wilkins RN Unavailable CE [email or web address] Encounter Details Date Type Department Care Team (Late st Contact Info) Description 10/20/2017 Procedure Pass [facility] [address] [facility], 6th [place] [address] Social History Tobacco Use Types Packs/Day Years Used Date Smoking Tobacco: Former Cigarettes 0.8 40 Smokeless Tobacco: Never Comments:quit 4 years Comments Unknown Sex and Gender Information Value Date Recorded Sex Assigned at Not on file Legal Sex Female 9:30 AM EST Gender Identity Not on file Sexual Orientation Not on file documented as of this encounter Plan of Treatment Not on file documented as of this encounter Visit Diagnoses Not on filedocumented in this encounter Care Teams Pr Internship Relationship Specialty Start Date End Date Zoya Everett MD [address] [place] [phone] PCP - General Internal Medicine 08/06/17 Diogenes Sherwood MD [address] [facility] [address] [place] [address] [email or web address] Primary Oncologist Medical Oncology 08/25/17 Kale Zhong MD [address] [place] [phone] [email or web address] Consulting Provider Radiation Oncology 08/27/17 Mehnaz Li CNP [address] [place] [phone] [email or web address] Nurse Practitioner Radiation Oncology 10/20/17 Kale Zhong MD [address] [place] [phone] [email or web address] Radiation Oncology 09/29/18 Génesis Wilkins, LUIZA [address] [place] [phone] [email or web address] Registered Nurse 03/04/21 documented as of this encounter Additional Source Comments The information contained in this document represents components of the legal health record. It is not the complete legal health record.[facility]
--- OUTSIDE RECORDS SUMMARY | 2025-04-20 20:43 | XMS_ITS | Clinical Summary ---
Author Organization [facility] it Address [address] [place] [address] Care Team Providers Care Dietitian Name Role Phone Zoya Everett MD Primary Care Provider Medications spironolactone (ALDACTONE) 25 mg tablet TAKE ONE-HALF (1/2) TABLET DAILY 45 tablet 1 10/18/2024 Active lisinopriL (PRINIVIL,ZESTRI L) 5 mg tablet TAKE 1 TABLET DAILY 90 tablet 1 10/18/2024 Active metoprolol succinate (TOPROL-XL) 50 mg 24 hr tablet TAKE 1 TABLET DAILY 90 tablet 1 12/01/2024 Active Surgical History Surgery Date Site/Laterality Comments TONSILLECTOMY PROCEDURE: HISTORICAL TONSILLECTOMY OTHER SURGICAL HISTORY PROCEDURE: HISTORY OTHER; COMMENT: ovarian cystectomy MULTIPLE TOOTH EXTRACTIONS PROCEDURE: HISTORICAL DENTAL EXTRACTION Medical History Medical History Date Comments CHF (congestive heart failur e) ([facility] [place], [facility] [place]) 06/10/2017 DX:CHF (congestive heart fa ilure) ([facility]) History of tachycardia 06/10/2017 DX:Histor y of tachycardia Hoarseness 03/17/2017 DX:Hoarseness Severe chronic obstructive p ulmonary disease ([facility] [place], [facility] V28) 03/17/2017 DX:Severe chronic o bstructive pulmonary disease ([facility]) Supplemental oxygen dependent 06/10/2017 DX :Supplemental oxygen dependent Chronic rheumatic arthritis ([facility] [place]24, [facility] V28) 06/10/2017 DX:Chronic rheumatic arthrit is ([facility]) Pulmonary nodules 03/17/2017 DX:Pulmonary n odules Social History Tobacco Use Types Packs/Day Years Used Date Smoking Tobacco: Former Cigarettes 1 40 0 06/01/1973 - 06/01/2013 Smokeless Tobacco: Never Alcohol Use Standard Drinks/Week Comments Yes 0 (1 standard drink = 0.6 oz pur e alcohol) Comments Unknown Sex and Gender Information Value Date Recorded Sex Assigned at Not on file Legal Sex Female 5:38 PM EST Gender Identity Not on file Sexual Orientation Not on file Obstetrics History Last Filed Vital Signs Vital Sign Reading Time Taken Comments Blood Pressure 100/66 02/08/2024 3:50 PM EDT Pulse 96 02/08/2024 3:50 PM EDT Temperature - - Respiratory Rate - - Oxygen Saturation 87% 02/08/2024 3:50 PM EDT 2 L of oxygen Inhaled Oxygen Concentration - - Weight 61.7 kg (136 lb) 02/08/2024 3:50 PM EDT Height 162.6 cm (5' 4 ) 02/08/2024 3:50 PM EDT Body Mass Index 23.34 02/08/2024 3:50 PM EDT Plan of Treatment Health Maintenance Due Date Last Done Comments Breast Cancer Screening 1955 RSV Immunization Adult Patients (1 - Risk 50-74 years 1-dose series) 11/30/2003 Zoster Vaccines (1 of 2) 11/30/2003 Pneumococcal Vaccine: 50+ Years (2 of 2 - PCV) 04/03/2022 04/03/2021 Cholesterol Screening (Lipid Panel) 05/03/2022 Falls Risk Assessment 05/03/2022 Hepatitis C Screening 05/03/2022 Lung Cancer Screening (Low Dose CT) 05/03/2022 Osteoporosis Screening (Bone Density Screening) 05/03/2022 Social Influencers of Health Screening 05/03/2022 Hypertension/CHF/CAD Annual BMP Blood Test 05/15/2022 Depression Screening 06/01/2024 COVID-19 Vaccine ( - season) 2025 Influenza Vaccine (#1) 2025 2, 04/03/2021, 03/23/2020, Additional history exists Colorectal Cancer Screening: FIT-DNA (Cologuard) 03/02/2026 03/02/2023, 03/02/2023, 02/13/2020 DTaP,Tdap,and Td Vaccines (2 - Td or Tdap) 02/03/2030 02/04/2020 HIB Vaccines Aged Out No longer eligi ble based on patient's age to complete this topic HPV Vaccines Aged Out No longer eligi ble based on patient's age to complete this topic Hepatitis A Vaccines Aged Out No long er eligible based on patient's age to complete this topic Hepatitis B Vaccines Aged Out No long er eligible based on patient's age to complete this topic IPV Vaccines Aged Out No longer eligi ble based on patient's age to complete this topic MMR Vaccines Aged Out No longer eligi ble based on patient's age to complete this topic Meningococcal ACWY Vaccine Aged Out N o longer eligible based on patient's age to complete this topic Meningococcal B Vaccine Aged Out No l onger eligible based on patient's age to complete this topic RSV Immunization Patients Under 20 months Aged Out No longer eligible based on patient's age to complete this topic Varicella Vaccines Aged Out No longer eligible based on patient's age to complete this topic Care Teams Dietitian Relationship Specialty Start Date End Date Zoya Everett MD [address] [place] [address] PCP - General Internal Medicine 12/02/13
--- OUTSIDE RECORDS SUMMARY | 2025-04-20 20:43 | XMS_ITS | Encounter Summary ---
Author Organization [facility] Address [address] [place] [address] Phone Care Team Providers Care Cheerleading Coach Name Role Phone Zoya Everett MD Primary Care Prov ider Diogenes Sherwood MD Unavailable [phone] Kale Zhong MD Unavailable [phone] Mehnaz Li PRODUCT SAFETY COMPLIANCE LEADER Unavailable [phone] Kale Zhong MD Unavailable [phone] Génesis Wilkins RN Unavailable CE [email or web address] Encounter Details Date Type Department Care Team (Late st Contact Info) Description 08/20/2017 Procedure Pass [facility] General Imaging [address] [place] [address] Social History Tobacco Use Types Packs/Day Years [...] on filedocumented in this encounter Care Teams Cheerleading Coach Relationship Specialty Start Date End Date Zoya Everett MD [address] [facility] [address] [place] [id number] PCP - General Internal Medicine 08/06/17 Diogenes Sherwood MD [address] [facility] [address] [place] [address] [email or web address] Primary Oncologist Medical Oncology 08/25/17 Kale Zhong MD [address] [place] [phone] [email or web address] Consulting Provider Radiation Oncology 08/27/17 Mehnaz Li CNP [address] [place] [phone] [email or web address] Nurse Practitioner Radiation Oncology 10/20/17 Kale Zhong MD [address] [place] [phone] [email or web address] Radiation Oncology 09/29/18 Génesis Wilkins, LUIZA [address] [place] [phone] [email or web address] Registered Nurse 03/04/21 documented as of this encounter Additional Source Comments The information contained in this document represents components of the legal health record. It is not the complete legal health record.[facility]
--- OUTSIDE RECORDS SUMMARY | 2025-04-20 20:43 | XMS_ITS ---
Author Organization [facility] Care Team Providers Care Day Camp Unit Leader Name Role Phone Finn Wade Unavailable Unavailable Jovanny Ramirez Unavailable Unavailable Elena Llamas Unavailable Unavailable Alisha Joshi Unavailable Unavailable Allergies and adverse reactions Code CodeSystem Substance Reaction Severity StartDate Concern Status Bactrim Unknown 12/18/2023 active 2670 RXNORM Codeine Unknown 12/18/2023 active 4053 RXNORM Erythromycin Unknown 12/18/2023 active Care Team Name Role Address Phone Organization Dates Alisha Joshi PCP [address] [address], [place], [address], [place] (Office): : [facility] 12/19/2023 - 01/23/2024 Finn Wade [address] [place] [address], [phone], [place] (Office): [facility] 12/19/2023 - 01/23/2024 Jovanny Ramirez [address] [address], [place], [address], [place] (Office): : : [facility] 12/19/2023 - 01/23/2024 Elena Llamas [address] [facility] [address], [place], [address], [place] (Office): : [facility]ya [facility] 12/19/2023 - 01/23/2024 Immunizations Immunization Status Vaccine Details Vaccine Code CodeSystem Abhijit e Notes PPSV23 (Pneumococcal Polysaccharide Vaccine) normal pneumococcal polysaccharide vaccine, 23 valent 33 CVX created date: 12/19/2023 consent date: 12/19/2023 Flu Vaccine Prior To Admission (historical only) normal unknown vaccine or immune globulin 999 CVX created date: 12/19/2023 consent date: 12/19/2023 Mental Status Section Date Assessment Total Score Description 01/22/2024 CAM 0 No delirium ind icated 12/20/2023 BIMS 14 cognitively int act CAM 0 No delirium ind icated PHQ-9 01 minimal depress ion Insurance Providers Problems Problem # Description Date of onset Resolved Date Code CodeSystem Concern Status 1 ACIDOSIS, UNSPECIFIED 12/18/[address] active 2 ACUTE AND CHRONIC RESPIRATORY FAILURE WITH HYPOXIA 12/18/[address] active 3 ACUTE KIDNEY FAILURE, UNSPECIFIED 12/18/[address] active 4 ALCOHOL USE, UNSPECIFIED WITH WITHDRAWAL, UNSPECIFIED 12/18/[address] active 5 ALCOHOL USE, UNSPECIFIED, UNCOMPLICATED 12/18/[address] active 6 ANEMIA, UNSPECIFIED 12/18/[address] active 7 ANXIETY DISORDER, UNSPECIFIED 12/18/[address] active 8 BACTEREMIA 12/18/[address] active 9 CHANGES IN SKIN TEXTURE 12/18/[address] active 10 CHRONIC OBSTRUCTIVE PULMONARY DISEASE WITH (ACUTE) EXACERBATION 12/18/[address] active 11 COLLAPSED VERTEBRA, NOT ELSEWHERE CLASSIFIED, THORACIC REGION, SEQUELA OF FRACTURE 12/18/[address] active 12 DEPENDENCE ON SUPPLEMENTAL OXYGEN 12/18/[address] active 13 ESSENTIAL (PRIMARY) HYPERTENSION 12/18/[address] active 14 HYPERLIPIDEMIA, UNSPECIFIED 12/18/[address] active 15 HYPOCALCEMIA 12/18/[address] active 16 LISTERIOSIS, UNSPECIFIED 12/18/[address] active 17 MUSCLE WEAKNESS (GENERALIZED) 12/18/[address] active 18 NON-ST ELEVATION (NSTEMI) MYOCARDIAL INFARCTION 12/18/[address] active 19 OTHER FORMS OF DYSPNEA 12/18/[address] active 20 OTHER MALAISE 12/18/[address] active 21 OTHER SPECIFIED SOFT TISSUE DISORDERS 12/18/[address] active 22 PULMONARY FIBROSIS, UNSPECIFIED 12/18/[address] active 23 UNSPECIFIED SYSTOLIC (CONGESTIVE) HEART FAILURE 12/18/[address] active Reason for Referral No Reasons for Referral Entered Social History Social History Observation Description Start Date End Date Code Code System Current Smoking Status Tobacco smoking consumption unknown 008039660 SNOMED CT Sex Assigned At Female 1955 39767-5 [facility] Gender Identity Sexual Orientation Vital Signs Code Code System Vitals Name Values and Units Timing Information 49026-5 [facility] Pain Level Value=0.0 01/23/2024 8867-4 [facility] Heart rate Value=75.0 Units=/min 16540-0 [facility] O2 % BldC Oximetry Value=97.0 Units= % 01/22/2024 8462-4 [facility] Blood Pressure-Diastolic Value=76 Un its=mmHg 01/21/2024 8480-6 [facility] Blood Pressure-Systolic Xhbaw=973 Un its=mmHg 01/21/2024 8310-5 [facility] Body Temperature Value=97.7 Units= F 01/21/2024 9279-1 [facility] Respiratory Rate Value=18.0 Units=/m in 01/21/2024 62869-0 [facility] Weight Kgfev=414.8 Units=Lbs 03/2024 8302-2 INC Height Value=54.0 Units=Inches 12/19/2023
--- OUTSIDE RECORDS SUMMARY | 2025-04-20 20:43 | XMS_ITS | Encounter Summary ---
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 Name Role Phone Zoya Everett MD Primary Care Prov ider Diogenes Sherwood MD Unavailable [phone] Kale Zhong MD Unavailable [phone] Mehnaz Li JOGGLE PRESS OPERATOR Unavailable [phone] Kale Zhong MD Unavailable [phone] Génesis Wilkins RN Unavailable CE [email or web address] Encounter Details Date Type Department Care Team (Late st Contact Info) Description 08/20/2017 Procedure Pass [facility] [address] [facility] [address] [facility] [place] [address] Social History Tobacco Use Types Packs/Day Years [...] on filedocumented in this encounter Care Teams 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 Nurse Practitioner Radiation Oncology 10/20/17 Kale Zhong MD [address] [place] [address] [email or web address] Radiation Oncology 09/29/18 Génesis Wilkins, LUIZA [address] [place] [phone] [email or web address] [email or web address] Nurse 03/04/21 documented as of this encounter Additional Source Comments The information contained in this document represents components of the legal health record. It is not the complete legal health record.[facility]
== END 2025-04-20 16:13 | disposition home or self-care (01) ==
LOC: HO.HPS 15:36
PROVIDERS: PCP Student in an Organized Health Care Education/Training Program; Visit Provider Hospitalist
DX: J44.1 Chronic obstructive pulmonary disease with (acute) exacerbation (principal); J96.11 Chronic respiratory failure with hypoxia; J96.12 Chronic respiratory failure with hypercapnia; J31.0 Chronic rhinitis; R91.8 Other nonspecific abnormal finding of lung field
CPT/HCPCS: 99214